=== PATIENT | female | born 1955 | race Caucasian/White ===

== ENCOUNTER → 2016-03-15 | Outpatient (CLI) | payer OTHER ==
[~2016-03-15] MED LIST: *GLUCOMETE; *MAMMOGRAM; *NEBULIZER; /ADVA50050; /ESOM40CA OR; /MOXI40TA OR; ACET500T2; ACET65TA; ADVAIR100 INHALATION; ADVAIR500 INHALATION; ALBUTEROL INHALATION; ALLO300T; ALLOPUR100 PO; ALLOPUR300 PO; AMO500 PO; AMOXIL875 PO; ASPI81TA85 PO; ASTELIN; ASTELIN NASAL; ASTLIN; AUG500 PO; AUG875 PO; AZELASTINE; BACTRIMDS PO; BENI20TA11; BENICAR; BENICAR PO; BPMONITOR; CETI10TA PO; CIPRO; CIPRO500 PO; CLAR5CHW; CLARITIN10 PO; CLEO300C; CO Q100C10 PO; COLA100C2; COLA100C2 OR; COLCHI0.6 PO; COMBIVENT PO; COMBVENT; CORTISSUSP OTIC; COZA25TA8 OR; COZAAR25 PO; COZAAR50 PO; DESONIDECR TOPICAL; DILA2TAB; DOCU10CA PO; DONETAB6 PO; DRISDOL50 PO; DUONSOL INHALATION; FERR325T OR; FLOVENT110 PO; FOLI1TAB; FOLIC1 PO; FURO40TA2; GLIM1TAB OR; GLUC1000; GLUCCOSEAC TOPICAL; GLUCOP1000 PO; GLUCOPXR5; GLUCOSE TEST; HEPARIN; INVANZ; KENALOG1 TOPICAL; LANCETDEV -; LANCMIS; LANCMIS SUBQ; LASI40TA; LASI40TA PO; LASIX40 PO; LOPI600T; LOPI600T OR; LOPID600 PO; LORATADINE; LOTRIMCREA TOPICALLY; METH2.5T; METH2.5T OR; MOTRIN6 PO; NAME10TA PO; NORMSALNS INHALATION; NYST100024; PERC5TAB8; POTASSIU10 PO; PRED5TAB OR; PREDNISO10 PO; PREDNISON PO; PREDNISON5 PO; PREDPOW10; PREDTAP PO; PRIL20CA; PRILOSEC20 PO; PROT1TAB2 PO; PROV90AE; PROVENTIL INHALATION; PROVENTILI PO; REGL5TAB2 PO; ROBITUSSIN PO; ROPINIROLE PO; SIMV40TA2 PO; SINGULAI10 PO; SODIUM CHLORIDE INJ; SUPETAB PO; TRIC145T19; TRICOR48 PO; TUMS500C OR; TYLE325T5 PO; TYLENOL500 PO; VENL75TA2 PO; VENTAER; VENTAER IN; VENTOLININ INHALATION; VICO5TAB OR; VICODIN PO; VITA-113 PO; VITA100T; VITA20008 PO; ZOVIRAXCR TOPICAL; [UNRECOGNIZED DRUG - CODE] PO; [UNRECOGNIZED DRUG - CODE] PO; [UNRECOGNIZED DRUG - OTHER]; [UNRECOGNIZED DRUG - OTHER]; [UNRECOGNIZED DRUG - OTHER] TOPICAL; [UNRECOGNIZED DRUG - OTHER] TOPICAL; [UNRECOGNIZED DRUG - OTHER] VAGINALLY; fish oil PO
--- NOTE | 2016-03-15 14:47 | REP ---
Chest two views HISTORY: Sleep apnea Comparison: 05/22/2015 The lungs are clear. The heart is upper limits of normal in size. The pulmonary vasculature is normal in appearance. The bony structure is intact. IMPRESSION: No acute disease. Signed by Darren Ragsdale MD 03/15/2016 02:37 P
== END ==
LOC: M SMT 13:35
PROVIDERS: ATTEND Nurse Practitioner Adult Health
DX: G47.33 Obstructive sleep apnea (adult) (pediatric) (principal)

== ENCOUNTER → 2016-05-16 | Outpatient (REF) | payer OTHER ==
[~2016-05-16] MED LIST changes: +ALBU17IN INH; +ASPI1TAB PO; +CALC1CAP31 PO; +COLA100C PO; +FOLI1TAB2 PO; +HYDR200T3 PO; +LOSA25TA8 PO; +PRED25TA PO; +PRED5TA PO; +VENL150C43 PO; +VITA200015 PO; +ZYLO300T4 PO
[2016-05-16 16:01] LABS: BASO % 0.3 % (0.0-1.0); EOS # 0.4 K/mm3 (0.0-0.50); EOS % 3.4 % (0.0-3.0); LARGE UNSTAINED CELL # 0.2 K/mm3 (0.0-0.4); LARGE UNSTAINED CELL % 1.2 % (0.0-4.0); LYMPH # 2.5 K/mm3 (1.5-4.5); LYMPH % 19.8 % (24.0-44.0); MEAN CORPUSCULAR HEMOGLOBIN 26.9 pg (27.0-33.0); MEAN CORPUSCULAR HGB CONC 30.4 g/dl (32.0-36.5); MEAN CORPUSCULAR VOLUME 88.4 fl (80.0-96.0); MONO # 0.5 K/mm3 (0.0-0.8); MONO % 4.4 % (0.0-5.0); NEUTROPHILS # 8.8 K/mm3 (1.8-7.7); NEUTROPHILS % 70.8 % (36.0-66.0); PLATELET COUNT, AUTOMATED 230 k/mm3 (150-450); RED CELL DISTRIBUTION WIDTH 14.4 % (11.5-14.5); WHITE BLOOD COUNT 12.4 K/mm3 (4.0-10.0)
[2016-05-16 16:11] LABS: ALBUMIN 3.7 GM/DL (3.2-5.2); ALBUMIN/GLOBULIN RATIO 0.97 (1.00-1.93); BILIRUBIN,TOTAL 0.3 MG/DL (0.2-1.0); CALCIUM LEVEL 8.8 MG/DL (8.5-10.1); CREATININE FOR GFR 1.56 MG/DL (0.55-1.02); GLOMERULAR FILTRATION RATE 36.2 (>51); POTASSIUM SERUM 4.4 MEQ/L (3.5-5.1); TOTAL PROTEIN 7.5 GM/DL (6.4-8.2)
== END ==
LOC: M SFHCPLAZ 14:01
PROVIDERS: ATTEND Nurse Practitioner Family
DX: R10.84 Generalized abdominal pain (principal); R63.4 Abnormal weight loss

== ENCOUNTER 2016-05-17 12:39 | Observation (INO) | payer OTHER, SELFPAY ==
[~2016-05-17] VITALS: Ht 160 cm; Wt 74.6 kg
[2016-05-17] MEDS: VENLAFAXINE **XR** 75MG CAPSULE PO SCH (09:00)
[2016-05-17] MEDS: predniSONE 2.5 MG TAB PO SCH (09:00)
[2016-05-17] MEDS: CETIRIZINE (ZyrTEC) 10 MG TAB PO SCH (09:00)
[2016-05-17] MEDS: ALLOPURINOL 300 MG TAB PO SCH (09:00)
[2016-05-17] MEDS: ASPIRIN 81 MG ENTERIC TAB PO SCH (09:00)
[2016-05-17] MEDS: VITAMIN D 1,000 INTERNATIONAL UNITS TABLET PO SCH (09:00)
[~2016-05-17 12:39] MED LIST changes: -ALBU17IN INH; -ASPI1TAB PO; -CALC1CAP31 PO; -COLA100C PO; -FOLI1TAB2 PO; +FUROSEMIDE 40 MG TAB PO SCH; -HYDR200T3 PO; -LOSA25TA8 PO; -PRED25TA PO; -PRED5TA PO; -VENL150C43 PO; -VITA200015 PO; -ZYLO300T4 PO
--- NOTE | 2016-05-17 15:56 | REP ---
Clinical: Acute abdominal pain with elevated amylase/lipase levels. Comparison: 12/25/2015. Findings: Mural thickening to the midsigmoid colon with multiple diverticula and very subtle pericolonic stranding (images 104 - 114) may reflect early acute sigmoid diverticulitis. The remainder of the small large bowel is unremarkable and without obstruction or further acute inflammatory process. Normal terminal ileum and appendix identified in the right lower quadrant. There is no evidence for free air or ascites and no drainable collection/abscess. Visualized liver, spleen, pancreas, bilateral adrenal glands and kidneys are normal. The patient is status post cholecystectomy. Splenic calcifications consistent with granulomatous disease. Pelvis demonstrates normal bladder and evidence for prior hysterectomy. No pelvic fluid/ascites. No intraperitoneal or retroperitoneal adenopathy. Moderate atherosclerotic changes of the aorta and vasculature without aneurysm. Skeletal structures demonstrate degenerative changes. Lung bases clear. Impression: 1. Cannot exclude a very subtle, early sigmoid diverticulitis. No associated bowel obstruction, perforation, or drainable collection/abscess. 2. No further acute intra-abdominal or pelvic pathology appreciated. Signed by Jaxon Barnett MD 05/17/2016 03:48 P
[2016-05-17] MEDS ORDERED: MORPHINE 4 MG/ML 1ML SYRINGE IV ONE (16:00)
[2016-05-17] MEDS ORDERED: ONDANSETRON 4MG/2ML VIAL (J2405) IV ONE (16:00)
[2016-05-17 16:01] LABS: BASO # 0.1 K/mm3 (0.0-0.2); BASO % 0.5 % (0.0-1.0); EOS # 0.6 K/mm3 (0.0-0.50); EOS % 4.2 % (0.0-3.0); LARGE UNSTAINED CELL # 0.2 K/mm3 (0.0-0.4); LARGE UNSTAINED CELL % 1.7 % (0.0-4.0); LYMPH # 4.1 K/mm3 (1.5-4.5); LYMPH % 26.9 % (24.0-44.0); MEAN CORPUSCULAR HEMOGLOBIN 27.4 pg (27.0-33.0); MEAN CORPUSCULAR HGB CONC 31.2 g/dl (32.0-36.5); MEAN CORPUSCULAR VOLUME 87.8 fl (80.0-96.0); MONO # 0.7 K/mm3 (0.0-0.8); MONO % 4.7 % (0.0-5.0); NEUTROPHILS % 62.1 % (36.0-66.0); PLATELET COUNT, AUTOMATED 264 k/mm3 (150-450); RED CELL DISTRIBUTION WIDTH 14.5 % (11.5-14.5); WHITE BLOOD COUNT 14.5 K/mm3 (4.0-10.0)
[2016-05-17 16:22] LABS: ALBUMIN 3.9 GM/DL (3.2-5.2); ALBUMIN/GLOBULIN RATIO 0.95 (1.00-1.93); BILIRUBIN,TOTAL 0.3 MG/DL (0.2-1.0); CALCIUM LEVEL 9.1 MG/DL (8.5-10.1); CREATININE FOR GFR 1.57 MG/DL (0.55-1.02); GLOMERULAR FILTRATION RATE 35.9 (>51); POTASSIUM SERUM 3.7 MEQ/L (3.5-5.1)
[2016-05-17] MEDS ORDERED: ERTAPENEM SODIUM 1 GM in NS MINI-BAG PLUS 50 ML IV ONE (17:30)
[2016-05-17] MEDS: HumaLOG INSULIN (NovoLOG) PER UNIT SC SCH (18:00)
[2016-05-17] MEDS ORDERED: ONDANSETRON 4MG/2ML VIAL (J2405) IV PRN (18:15)
[2016-05-17] MEDS ORDERED: MORPHINE 2 MG/ML 1ML SYRINGE IV PRN (18:15)
[2016-05-17] MEDS ORDERED: GLUCOSE 4 GM CHEW TABLET PO PRN (18:30)
[2016-05-17] MEDS ORDERED: DEXTROSE 50% 50 ML SYRINGE IV PRN (18:30)
[2016-05-17] MEDS ORDERED: ALBUTEROL SULFATE 2.5 MG/0.5 ML INH NEB SOLN NEB PRN (18:30)
[2016-05-17] MEDS ORDERED: GLUCAGON FOR INJ 1 MG VIAL (J1610) SC PRN (18:30)
[2016-05-17] MEDS ORDERED: CETI10TA PO (18:45)
[2016-05-17] MEDS ORDERED: ZYLO300T4 PO (18:45)
[2016-05-17] MEDS ORDERED: VITA200015 PO (18:45)
[2016-05-17] MEDS ORDERED: ALBU17IN INH (18:45)
[2016-05-17] MEDS ORDERED: TYLE325T5 PO (18:45)
[2016-05-17] MEDS ORDERED: ASPI1TAB PO (18:45)
[2016-05-17] MEDS ORDERED: FOLI1TAB2 PO (18:49)
[2016-05-17] MEDS ORDERED: COLA100C PO (18:49)
[2016-05-17] MEDS ORDERED: LOSA25TA8 PO (18:49)
[2016-05-17] MEDS ORDERED: CALC1CAP31 PO (18:49)
[2016-05-17] MEDS ORDERED: VENL150C43 PO (18:51)
[2016-05-17] MEDS ORDERED: PRED25TA PO (18:51)
[2016-05-17] MEDS ORDERED: PRED5TA PO (18:51)
[2016-05-17] MEDS ORDERED: HYDR200T3 PO (18:51)
[2016-05-17] MEDS ORDERED: predniSONE 5 MG TAB PO PRN (19:15)
[2016-05-17] MEDS ORDERED: DOCUSATE SODIUM 100 MG CAP PO PRN (19:15)
[2016-05-17] MEDS: NS 1,000 ML IV SCH (19:34)
--- NOTE | 2016-05-17 20:30 | HPE ---
DATE OF ADMISSION: 05/17/2016 PRIMARY CARE PROVIDER: Anahi Lucio/Dr. Nelson Goel HOSPITALIZATION COURSE: Patient is a 60-year-old female with a past medical history significant for type 2 diabetes, rheumatoid arthritis, lung nodule, chronic kidney disease (CKD), III, osteopenia, diverticulosis, hypertension, reflux disease, obstructive sleep apnea (MARLON) on continuous positive airway pressure (CPAP), chronic obstructive pulmonary disease (COPD), anxiety/depression, who was instructed to come to [facility] by her primary care provider's office. Patient has been having poor appetite and abdominal pain for the past 2 months. Patient has been following with primary care provider. On 05/16/2016, laboratory was done, which came back positive for elevated lipase, and the patient was instructed to come to [facility] for further evaluation. Per patient, patient has been having abdominal pain, mainly in the lower abdomen with tenderness to palpation without radiation. She could not relay any specific trigger to the abdominal pain. Denied any fevers or chills. Denies any diarrhea. Denied any blood in stool. Denies any new medication changes. Denies any significant alcohol use. When patient was in the [facility] Emergency Room, CT of the abdomen and pelvis was performed. Patient was found to have signs of early sigmoid diverticulosis. Patient was started on antibiotics, and the hospitalist team was called for admission. HOME MEDICATIONS: - Namenda 10 mg by mouth twice a day - Aricept 20 mg by mouth daily - aspirin 81 mg by mouth daily - Astelin spray one puff nasal twice a day as needed - vitamin B complex one tablet by mouth daily - losartan 25 mg by mouth daily - Effexor 150 mg by mouth daily - prednisone 2.5 mg by mouth daily - Tylenol 1000 mg by mouth every 8 hours as needed - Dulcolax 5 mg by mouth daily as needed - Colace 200 mg by mouth daily as needed - simvastatin 40 mg by mouth daily as needed - Lasix 20 mg by mouth daily - Zyrtec 10 mg one tablet by mouth daily - DuoNeb inhalation every 2 hours as needed - Folic acid 1 mg by mouth twice a day - allopurinol 300 mg by mouth daily - Protonix 40 mg by mouth daily ALLERGIES: 1. PENICILLIN, rash. 2. SULFA, rash. 3. FLAGYL; patient does not remember. 4. AUGMENTIN, rash. 5. FLEXERIL, stopped breathing. 6. CODEINE, tachycardia. 7. SERTRALINE, rash. PAST MEDICAL HISTORY: 1. Type 2 diabetes. 2. Hyperlipidemia. 3. Rheumatoid arthritis. Followed by [facility]. 4. Lung nodule (patient is not aware of the findings). 5. Chronic kidney disease (CKD), stage III. 6. Osteopenia. 7. Diverticulosis. 8. Hypertension. 9. Urge incontinence. 10. Reflux disease. 11. MARLON, on CPAP. 12. Chronic obstructive pulmonary disease (COPD). 13. Anxiety/depression. PAST SURGICAL HISTORY: 1. Tonsillectomy. 2. Cholecystectomy. 3. Hysterectomy. 4. Umbilical hernia repair. 5. Left flank lipoma excision in 2009. 6. Left parathyroid adenoma excision in 2010. 7. Right breast sebaceous cyst removal in July 2015. SOCIAL HISTORY: Patient smoked intermittently, total years approximately 30-40 years. When patient smoked, she smoked one pack daily. Last tobacco use was 4 months ago. Intermittent beer usage. Denies any recreational drug use. REVIEW OF SYSTEMS: GENERAL: No fever, no chills. HEENT: No vision change, no auditory changes. CARDIOVASCULAR: History of fluid around the heart but denies any cardiovascular condition. No chest pain. No palpitations. RESPIRATORY: History of COPD, history of MARLON. Denies any cough, sputum production, wheezes. ABDOMEN: Intermittent abdominal pain. Has been more frequent in the past 2 months, associated with poor appetite. Patient also complained of nausea. No diarrhea. No blood in stool. MUSCULOSKELETAL: History of rheumatoid arthritis. Denies any joint or muscle pain. NEUROLOGIC: Denied any numbness or tingling. OBJECTIVE: VITAL SIGNS: Temperature is 97.9, pulse 65, respirations 18, blood pressure is 133/69, pulse oximetry 99% in room air. GENERAL: No sign of acute distress. Anxious. Alert and oriented times three. HEENT: Normocephalic, atraumatic. Extraocular motor grossly intact. CARDIOVASCULAR: Positive S1, S2, regular rate. LUNGS: Clear to auscultation bilaterally. No wheezes or rhonchi. ABDOMEN: Tender to palpation, mainly on the left side of abdomen , upper and lower quadrants. No tenderness to palpation on the right side of abdomen. No rebound. No guarding. Bowel sounds present. Abdomen is soft. EXTREMITIES: No edema. No cyanosis. LABORATORY DATA: WBC 14.5, hemoglobin 12.8, hematocrit 41, platelet count is 264. Sodium is 144, potassium 3.7, chloride is 108, carbon dioxide 28, BUN 22, creatinine is 1.57, GFR 35.9, fasting glucose 74, calcium is 9.1. Total bilirubin 0.3, AST 14, ALT 20, alkaline phosphatase 173, total protein 8, albumin 3.9. Amylase is 84, lipase is 150. Lipase on 05/16/2016 is 526, and amylase is 158. TSH 0.67. Patient has a creatinine at baseline of 1.22 in April 2015. ASSESSMENT AND PLAN: 1. Abdominal pain, possibly due to diverticulitis. Patient could have pancreatitis previously, but it is resolved. Patient will be admitted to the medical/surgical floor under observation status. Patient did have elevated white count. Due to patient's allergy to multiple antibiotics, including penicillin, sulfa, Flagyl, we started patient on ertapenem. 2. Patient was continued nothing by mouth, support with intravenous (IV) fluid. Pain management started medication with Tylenol and IV morphine as needed. 3. Diverticulitis. 4. History of diverticulosis. 5. Type 2 diabetes. Patient on sliding scale every 2 hours. 6. History of rheumatoid arthritis. Continue on prednisone. 7. Chronic kidney disease (CKD), III. Continue to monitor patient's renal function tomorrow. 8. Hypertension. Continue home blood pressure medications. 9. Gastroesophageal reflux disease (GERD), on Protonix. 10. Obstructive sleep apnea (MARLON). Patient will bring her CPAP to the hospital. 11. Patient had chronic obstructive pulmonary disease (COPD). Currently does not have any exacerbation. 12. Anxiety/depression, on home medications. 13. Deep vein thrombosis (DVT) prophylaxis, on heparin.
[2016-05-17] MEDS: FOLIC ACID 1 MG TAB PO SCH (21:00)
[2016-05-17] MEDS: SIMVASTATIN 40 MG TAB PO SCH (21:00)
[2016-05-17 21:14] VITALS: BP 140/85
[2016-05-17] MEDS: PANTOPRAZOLE 40MG TAB (PROTONIX) PO SCH (22:07)
[2016-05-17] MEDS: HYDROXYCHLOROQUINE 200 MG TAB PO SCH (22:08)
[2016-05-17] MEDS: MEMANTINE 5MG TABLET (NAMENDA) PO SCH (22:08)
[2016-05-17] MEDS: LOSARTAN 25 MG TAB PO SCH (22:08)
[2016-05-17] MEDS: HEPARIN SOD (PORCINE) 5000 UNITS/ML VIAL SC SCH (22:08)
[2016-05-18 06:00] VITALS: BP 140/85
[2016-05-18] MEDS: HumaLOG INSULIN (NovoLOG) PER UNIT SC SCH ×5 (06:00→21:00)
[2016-05-18] MEDS: HEPARIN SOD (PORCINE) 5000 UNITS/ML VIAL SC SCH ×3 (06:27→21:39)
[2016-05-18] MEDS: NS 1,000 ML IV SCH (06:43)
[2016-05-18 06:59] LABS: MEAN CORPUSCULAR HEMOGLOBIN 26.7 pg (27.0-33.0); MEAN CORPUSCULAR HGB CONC 30.6 g/dl (32.0-36.5); MEAN CORPUSCULAR VOLUME 87.3 fl (80.0-96.0); RED CELL DISTRIBUTION WIDTH 14.4 % (11.5-14.5); WHITE BLOOD COUNT 7.4 K/mm3 (4.0-10.0)
[2016-05-18 07:15] LABS: CALCIUM LEVEL 8.5 MG/DL (8.5-10.1); CREATININE FOR GFR 1.32 MG/DL (0.55-1.02); GLOMERULAR FILTRATION RATE 43.9 (>51); POTASSIUM SERUM 4.4 MEQ/L (3.5-5.1)
[2016-05-18] MEDS: ALLOPURINOL 300 MG TAB PO SCH (10:15)
[2016-05-18] MEDS: ASPIRIN 81 MG ENTERIC TAB PO SCH (10:15)
[2016-05-18] MEDS: VENLAFAXINE **XR** 75MG CAPSULE PO SCH (10:15)
[2016-05-18] MEDS: predniSONE 2.5 MG TAB PO SCH (10:15)
[2016-05-18] MEDS: HYDROXYCHLOROQUINE 200 MG TAB PO SCH ×2 (10:15→21:40)
[2016-05-18] MEDS: MEMANTINE 5MG TABLET (NAMENDA) PO SCH ×2 (10:16→21:39)
[2016-05-18] MEDS: ACETAMINOPHEN TAB 650MG DOSE (2X325MG) PO PRN ×2 (10:16→14:52)
[2016-05-18 14:00] VITALS: BP 155/66
[2016-05-18] MEDS: ERTAPENEM SODIUM 1 GM in NS MINI-BAG PLUS 50 ML IV SCH (18:30)
[2016-05-18] MEDS: LOSARTAN 25 MG TAB PO SCH (21:40)
[2016-05-18] MEDS: PANTOPRAZOLE 40MG TAB (PROTONIX) PO SCH (21:40)
[2016-05-18 22:00] VITALS: BP 134/62
--- NOTE | 2016-05-19 00:42 | IPNPDOC ---
Subjective Date Seen The patient was seen on 05/18/16. Subjective Chief Complaint/HPI The patient is a 60-year-old female admitted with a reason for visit of Acute Diverticulitis. Events since last encounter States she is feeling better. Abdominal discomfort improving. Constitutional: Reports: Fatigue, Malaise, Denies: Chills, Fever Skin: Denies: Rash Pulmonary: Denies: Cough, Dyspnea Cardiovascular: Denies: Chest Pain Gastrointestinal: Reports: Abdominal Pain, Diarrhea, Denies: Vomiting Objective Physical Examination General Exam: Positive: Alert Assessment /Plan Problems (1) Acute diverticulitis Status: Acute Problem Text: Irtapenem secondary to multiple medication allergies. Reports improvement. (2) Diabetes mellitus type 2 in nonobese Status: Chronic Problem Text: on sliding scale insulin (3) Rheumatoid arthritis Status: Acute (4) Chronic kidney disease Status: Chronic Problem Text: 05/18: outpatient creatinine 1.5 just prior to admission, will monitor (5) COPD (chronic obstructive pulmonary disease) Status: Chronic Problem Text: Duonebs prn (6) MARLON (obstructive sleep apnea) Status: Acute (7) Hypertension Status: Acute VS, I&O, 24H, [facility] Vital Signs/I&O Vital Signs Date Time Temp Pulse Resp B/P Pulse Ox O2 Delivery O2 Flow Rate FiO2 05/18/16 22:00 96.8 56 18 134/62 99 05/18/16 14:00 Room Air I&O- Last 24 Hours up to 6 AM 05/19/16 06:00 Intake Total 1810 ml Output Total 300 ml Balance 1510 ml Laboratory Data 24H LABS Laboratory Tests 2 05/18/16 03:56: Bedside Glucose (Misc Panel) 78 05/18/16 06:02: Bedside Glucose (Misc Panel) 105 05/18/16 06:40: Anion Gap 6L, C-Reactive Protein, Quantitative 2.95H, Blood Urea Nitrogen 17, Creatinine 1.32H, Sodium Level 146H, Potassium Level 4.4, Chloride Level 114H, Carbon Dioxide Level 26, Calcium Level 8.5, Glomerular Filtration Rate 43.9L 05/18/16 12:02: Bedside Glucose (Misc Panel) 102 05/18/16 17:10: Bedside Glucose (Misc Panel) 95 05/18/16 21:32: Bedside Glucose (Misc Panel) 77 CBC/BMP Laboratory Tests 05/18/16 06:40 Calcium Level 8.5, Red Blood Count 4.10, Mean Corpuscular Volume 87.3, Mean Corpuscular Hemoglobin 26.7 L, Mean Corpuscular Hemoglobin Concent 30.6 L, Red Cell Distribution Width 14.4 BRITTANY DODSON DO May 19, 2016 00:42
[2016-05-19] MEDS ORDERED: IPRATROPIUM 0.5MG/ALBUTEROL 2.5MG INH SOL UD 3ML (DUONEB)(J7620) NEB PRN (00:45)
[2016-05-19] MEDS: HEPARIN SOD (PORCINE) 5000 UNITS/ML VIAL SC SCH ×3 (05:13→21:59)
[2016-05-19] MEDS: ACETAMINOPHEN TAB 650MG DOSE (2X325MG) PO PRN ×2 (05:33→12:23)
[2016-05-19 06:00] VITALS: BP 180/78
[2016-05-19 06:43] LABS: MEAN CORPUSCULAR HEMOGLOBIN 27.2 pg (27.0-33.0); MEAN CORPUSCULAR HGB CONC 31.4 g/dl (32.0-36.5); MEAN CORPUSCULAR VOLUME 86.6 fl (80.0-96.0); RED CELL DISTRIBUTION WIDTH 14.4 % (11.5-14.5); WHITE BLOOD COUNT 9.4 K/mm3 (4.0-10.0)
[2016-05-19 07:02] LABS: CALCIUM LEVEL 9.5 MG/DL (8.5-10.1); CREATININE FOR GFR 1.25 MG/DL (0.55-1.02); GLOMERULAR FILTRATION RATE 46.7 (>51); POTASSIUM SERUM 4.1 MEQ/L (3.5-5.1)
[2016-05-19] MEDS: HumaLOG INSULIN (NovoLOG) PER UNIT SC SCH ×4 (07:30→20:44)
[2016-05-19] MEDS: ALLOPURINOL 300 MG TAB PO SCH (09:34)
[2016-05-19] MEDS: ASPIRIN 81 MG ENTERIC TAB PO SCH (09:34)
[2016-05-19] MEDS: predniSONE 2.5 MG TAB PO SCH (09:35)
[2016-05-19] MEDS: MEMANTINE 5MG TABLET (NAMENDA) PO SCH ×2 (09:35→21:59)
[2016-05-19] MEDS: HYDROXYCHLOROQUINE 200 MG TAB PO SCH ×2 (09:35→21:59)
[2016-05-19] MEDS: VENLAFAXINE **XR** 75MG CAPSULE PO SCH (09:35)
[2016-05-19 09:37] VITALS: BP 159/62
--- NOTE | 2016-05-19 12:55 | IPNPDOC ---
Subjective Date Seen The patient was seen on 05/19/16. Subjective Chief Complaint/HPI The patient is a 60-year-old female admitted with a reason for visit of Acute Diverticulitis. Events since last encounter She developed increased abdominal cramping this morning. Moderate amount of formed stool this am. No diarrhea today. No n/v. Constitutional: Denies: Chills, Fever Pulmonary: Denies: Cough, Dyspnea Cardiovascular: Denies: Chest Pain, Orthopnea, Palpitations Gastrointestinal: Reports: Abdominal Pain (abdominal cramping today), Denies: Constipation, Diarrhea, Nausea, Vomiting Objective Physical Examination General Exam: Positive: Alert, Moderate Distress (holding abdomen with obvious discomfort) Chest Exam: Positive: Clear to auscultation, Normal air movement Heart Exam: Positive: Rate Normal, Negative: Murmurs Abdomen Exam: Positive: Normal bowel sounds, Soft, Tenderness (diffuse tenderness lower abd without guard ) Extremity Exam: Negative: Edema Assessment /Plan Problems (1) Acute diverticulitis Status: Acute Problem Text: 05/19 - recurrence of abd cramping this am. No diarrhea, but I would get GI panel anyway She is unwilling to take the Morphine - "makes her throat feel funny" Give percocet prn Irtapenem secondary to multiple medication allergies. (2) Diabetes mellitus type 2 in nonobese Status: Chronic Problem Text: on sliding scale insulin (3) Rheumatoid arthritis Status: Acute Problem Text: On chronic prednisone. (4) Chronic kidney disease Status: Chronic Problem Text: 05/19 - stable - diuretics on hold 05/18: outpatient creatinine 1.5 just prior to admission, will monitor (5) COPD (chronic obstructive pulmonary disease) Status: Chronic Problem Text: Duonebs prn (6) MARLON (obstructive sleep apnea) Status: Acute (7) Hypertension Status: Chronic Problem Text: Bp was high this am but better now on ARB Plan/VTE VTE Prophylaxis Ordered?: Yes (SQ heparin) VS, I&O, 24H, Fishbone Vital Signs/I&O Vital Signs Date Time Temp Pulse Resp B/P Pulse Ox O2 Delivery O2 Flow Rate FiO2 05/19/16 09:37 159/62 05/19/16 06:00 98.0 56 18 99 05/18/16 14:00 Room Air I&O- Last 24 Hours up to 6 AM 05/19/16 06:00 Intake Total 2290 ml Output Total 500 ml Balance 1790 ml Laboratory Data 24H LABS Laboratory Tests 2 05/18/16 17:10: Bedside Glucose (Misc Panel) 95 05/18/16 21:32: Bedside Glucose (Misc Panel) 77 05/19/16 01:55: Bedside Glucose (Misc Panel) 92 05/19/16 05:13: Bedside Glucose (Misc Panel) 95 05/19/16 06:02: Anion Gap 6L, Blood Urea Nitrogen 16, Creatinine 1.25H, Sodium Level 144, Potassium Level 4.1, Chloride Level 112H, Carbon Dioxide Level 26, Calcium Level 9.5, Glomerular Filtration Rate 46.7L 05/19/16 11:29: Bedside Glucose (Misc Panel) 117H CBC/BMP Laboratory Tests 05/19/16 06:02 Calcium Level 9.5, Red Blood Count 4.33, Mean Corpuscular Volume 86.6, Mean Corpuscular Hemoglobin 27.2, Mean Corpuscular Hemoglobin Concent 31.4 L, Red Cell Distribution Width 14.4 CORNELIUS JEFFREY PA-C May 19, 2016 12:55
[2016-05-19 14:00] VITALS: BP 152/74
[2016-05-19] MEDS: ERTAPENEM SODIUM 1 GM in NS MINI-BAG PLUS 50 ML IV SCH (18:47)
[2016-05-19] MEDS ORDERED: traMADol 50 MG TAB PO PRN (19:30)
[2016-05-19 21:59] VITALS: BP 141/63
[2016-05-19] MEDS: PANTOPRAZOLE 40MG TAB (PROTONIX) PO SCH (21:59)
[2016-05-19] MEDS: SIMVASTATIN 40 MG TAB PO SCH (21:59)
[2016-05-19] MEDS: FOLIC ACID 1 MG TAB PO SCH (21:59)
[2016-05-19] MEDS: LOSARTAN 25 MG TAB PO SCH (21:59)
[2016-05-19 22:00] VITALS: BP 141/63
[2016-05-20] MEDS: HEPARIN SOD (PORCINE) 5000 UNITS/ML VIAL SC SCH ×4 (05:58→14:18)
[2016-05-20 06:00] VITALS: BP 160/72
[2016-05-20 06:18] LABS: MEAN CORPUSCULAR HEMOGLOBIN 27.8 pg (27.0-33.0); MEAN CORPUSCULAR HGB CONC 31.7 g/dl (32.0-36.5); MEAN CORPUSCULAR VOLUME 87.5 fl (80.0-96.0); RED CELL DISTRIBUTION WIDTH 14.4 % (11.5-14.5); WHITE BLOOD COUNT 8.8 K/mm3 (4.0-10.0)
[2016-05-20 06:30] LABS: CREATININE FOR GFR 1.14 MG/DL (0.55-1.02); GLOMERULAR FILTRATION RATE 51.9 (>51); POTASSIUM SERUM 4.4 MEQ/L (3.5-5.1)
[2016-05-20] MEDS: HumaLOG INSULIN (NovoLOG) PER UNIT SC SCH ×2 (07:30→12:00)
[2016-05-20] MEDS: MEMANTINE 5MG TABLET (NAMENDA) PO SCH (09:44)
[2016-05-20] MEDS: FOLIC ACID 1 MG TAB PO SCH (09:44)
[2016-05-20] MEDS: HYDROXYCHLOROQUINE 200 MG TAB PO SCH (09:44)
[2016-05-20] MEDS: VENLAFAXINE **XR** 75MG CAPSULE PO SCH (09:44)
[2016-05-20] MEDS: ALLOPURINOL 300 MG TAB PO SCH (09:44)
[2016-05-20] MEDS: VITAMIN D 1,000 INTERNATIONAL UNITS TABLET PO SCH (09:44)
[2016-05-20] MEDS: CETIRIZINE (ZyrTEC) 10 MG TAB PO SCH (09:44)
[2016-05-20] MEDS: ASPIRIN 81 MG ENTERIC TAB PO SCH (09:44)
[2016-05-20] MEDS: predniSONE 2.5 MG TAB PO SCH (10:23)
[2016-05-20 14:00] VITALS: BP 151/70
--- NOTE | 2016-05-20 16:35 | IPN ---
DATE: 05/20/2016 Charlotte is here for diverticulitis. She is hoping to go home. She did have one episode of profuse diarrhea, and I want to make sure she does not Clostridium (C) difficile before making a decision about discharge. She is on chronic steroid therapy and broad-spectrum antibiotic therapy. PHYSICAL EXAMINATION: Afebrile. Vital signs stable. LUNGS: Clear. HEART: Regular rate and rhythm. No murmur. ABDOMEN: Soft, nondistended. No masses. No peripheral edema. LABORATORY DATA: CBC, BMP look unremarkable. Creatinine is down to 1.1. IMPRESSION: 1. Diverticulitis. She is allergic to FLAGYL. Previously had been treated as an outpatient with Cipro and clindamycin. Need to make sure she does not have Clostridium (C) difficile before sending her anywhere on clindamycin. 2. Type 2 diabetes. I am stopping the sliding scale and fingersticks, as her blood sugars have consistently been around 100 with no requirement for coverage. 3. Rheumatoid arthritis, on chronic steroid therapy. 4. Diarrhea episode. Need to rule out C. difficile, particularly being on steroids and broad-spectrum antibiotic. If her gastrointestinal (GI) panel is negative, I will discharge her later this evening. 5. Chronic kidney disease, acute renal failure. Renal function is back to baseline. 6. Hypertension. Her blood pressure is under good control.
[2016-05-20] MEDS ORDERED: CLINDAMYCIN 150 MG CAP PO SCH (18:00)
[2016-05-20] MEDS ORDERED: CIPROFLOXACIN 500 MG TAB PO SCH (18:00)
[2016-05-20] MEDS ORDERED: CLEO150C PO (18:17)
[2016-05-20] MEDS ORDERED: CIPR500T89 PO (18:17)
--- NOTE | 2016-05-20 20:43 | DSES ---
DATE OF ADMISSION: 05/17/2016 DATE OF DISCHARGE: 05/20/2016 PRINCIPAL DIAGNOSIS: Acute diverticulitis. SECONDARY DIAGNOSES: 1. Type 2 diabetes. 2. Chronic kidney disease, stage III. 3. Acute renal failure. 4. Rheumatoid arthritis on chronic steroid therapy. 5. Obstructive sleep apnea. 6. Hypertension. HISTORY: Charlotte Celis was admitted with diverticulitis. For details, see history and physical from admission. HOSPITAL COURSE: The patient was admitted to a medical bed. She has a history of multiple drug allergies. She was treated with ertapenem. Tolerated this well. She had resolution of pain. On day of discharge was quite eager to go home. She had one diarrheal stool. I wanted her to wait and have another stool so we could send it to rule out Clostridium (C) difficile. She did have a stool this afternoon, but it was formed, and therefore not consistent with C. difficile colitis, so I am letting her go home. SIGNIFICANT LABORATORIES: White count today is 8.8, hemoglobin 10.9, platelets 190. Creatinine at admission was 1.57. It is down to 1.1 on discharge. DISPOSITION: She is discharged home in improved and stable condition. MEDICATIONS ON DISCHARGE: - Cipro 500 mg twice a day for 5 days - clindamycin 300 mg every 6 hours for 5 days (that is the regimen that she responded to in the past) She will otherwise continue her home medicines, which are: - allopurinol 300 mg daily - albuterol two puffs four times a day as needed - calcitriol 0.25 mcg three days a week, Monday, Monday, Monday - cetirizine 10 mg daily for allergies - vitamin D 2000 units daily - Colace 100 mg twice a day - Aricept 10 mg twice a day - folic acid 1 mg daily - Lasix 40 mg daily - Plaquenil 200 mg twice a day - losartan 25 mg at bedtime - Namenda 10 mg twice a day - Protonix 40 mg at bedtime - prednisone 2.5 mg daily - simvastatin 40 mg daily - venlafaxine 150 mg daily DIET: As tolerated. ACTIVITY: As tolerated with consistent-carbohydrate diet. Followup with her primary physician in a week.
== END 2016-05-20 18:47 | disposition home or self-care (01) ==
LOC: M ED 17:09 → M ED INP 18:13 → INTOOBSV 18:13 → M MSPAV 21:14
PROVIDERS: ADMIT Internal Medicine; ATTEND Family Medicine
DX: K57.92 Diverticulitis of intestine, part unspecified, without perforation or abscess without bleeding (principal); E11.9 Type 2 diabetes mellitus without complications; N18.3 Chronic kidney disease, stage 3 (moderate); N17.9 Acute kidney failure, unspecified; E78.4 Other hyperlipidemia; M06.9 Rheumatoid arthritis, unspecified; Z79.52 Long term (current) use of systemic steroids; G47.33 Obstructive sleep apnea (adult) (pediatric); I10 Essential (primary) hypertension; Z88.0 Allergy status to penicillin; Z88.2 Allergy status to sulfonamides; Z88.8 Allergy status to other drugs, medicaments and biological substances; Z87.891 Personal history of nicotine dependence; R91.1 Solitary pulmonary nodule; K21.9 Gastro-esophageal reflux disease without esophagitis; J44.9 Chronic obstructive pulmonary disease, unspecified; F41.9 Anxiety disorder, unspecified; F32.9 Major depressive disorder, single episode, unspecified; Z79.899 Other long term (current) drug therapy
CPT/HCPCS: 36415; 74176; 80048; 80053; 82150; 83690; 85025; 85027; 86140; 87507; 96372; 96376; 99284; J1335; J2405

== ENCOUNTER 2016-06-24 23:16 | Emergency (ER) | payer OTHER ==
[~2016-06-24] VITALS: Ht 160 cm; Wt 72.6 kg
[~2016-06-24 23:16] MED LIST changes: +ALBU17IN INH; +ASPI1TAB PO; +CALC1CAP31 PO; +CIPR500T89 PO; +CLEO150C PO; +COLA100C3 PO; +FOLI1TAB2 PO; -FUROSEMIDE 40 MG TAB PO SCH; +HYDR200T3 PO; +LOSA25TA8 PO; +PRED25TA PO; +PRED5TA PO; +VENL150C43 PO; +VITA200015 PO; +ZYLO300T4 PO
[2016-06-24] MEDS ORDERED: ONDANSETRON 4MG/2ML VIAL (J2405) IV ONE (23:45)
[2016-06-25] LABS: BASO # 0.1 K/mm3 (0.0-0.2); BASO % 0.7 % (0.0-1.0); EOS # 0.8 K/mm3 (0.0-0.50); EOS % 5.6 % (0.0-3.0); LARGE UNSTAINED CELL # 0.2 K/mm3 (0.0-0.4); LARGE UNSTAINED CELL % 1.2 % (0.0-4.0); LYMPH % 27.3 % (24.0-44.0); MEAN CORPUSCULAR HEMOGLOBIN 26.8 pg (27.0-33.0); MEAN CORPUSCULAR HGB CONC 31.5 g/dl (32.0-36.5); MONO # 0.6 K/mm3 (0.0-0.8); MONO % 4.4 % (0.0-5.0); NEUTROPHILS # 8.4 K/mm3 (1.8-7.7); NEUTROPHILS % 60.8 % (36.0-66.0); PLATELET COUNT, AUTOMATED 260 k/mm3 (150-450); RED CELL DISTRIBUTION WIDTH 15.1 % (11.5-14.5); WHITE BLOOD COUNT 13.8 K/mm3 (4.0-10.0)
[2016-06-25] MEDS ORDERED: MORPHINE 2 MG/ML 1ML SYRINGE IV PRN
[2016-06-25] MEDS ORDERED: LORazepam 2 MG/ML VIAL (J2060) IV STA (00:03)
[2016-06-25] MEDS ORDERED: ASPIRIN 325 MG TAB PO ONE (00:15)
[2016-06-25] MEDS ORDERED: ASPIRIN 81 MG CHEW TABLET As Ordered ONE (00:26)
[2016-06-25 00:31] LABS: ALBUMIN 3.5 GM/DL (3.2-5.2); ALBUMIN/GLOBULIN RATIO 0.92 (1.00-1.93); ALKALINE PHOSPHATASE 182 U/L (45-117); ALT/SGPT 24 U/L (12-78); ANION GAP 10 MEQ/L (8-16); AST/SGOT 28 U/L (15-37); BILIRUBIN,DIRECT < 0.1 MG/DL (0.0-0.2); BILIRUBIN,TOTAL 0.2 MG/DL (0.2-1.0); BLOOD UREA NITROGEN 31 MG/DL (7-18); CARBON DIOXIDE LEVEL 27 MEQ/L (21-32); CHLORIDE LEVEL 106 MEQ/L (98-107); CREATININE FOR GFR 1.72 MG/DL (0.55-1.02); FREE T4 1.06 NG/DL (0.76-1.46); GLOMERULAR FILTRATION RATE 32.3 (>51); GLUCOSE, FASTING 172 MG/DL (70-105); POTASSIUM SERUM 4.1 MEQ/L (3.5-5.1); SODIUM LEVEL 143 MEQ/L (136-145); TOTAL PROTEIN 7.3 GM/DL (6.4-8.2)
[2016-06-25 00:49] LABS: INR 0.94
[2016-06-25 01:13] VITALS: BP 131/73
[2016-06-25] MEDS ORDERED: ASPIRIN 81 MG CHEW TABLET PO ONE (01:15)
--- NOTE | 2016-06-25 15:06 | REP ---
Chest one-view HISTORY: Chest pain Comparison: 03/15/2016 The lungs are clear. The heart is upper limits of normal in size. The pulmonary vasculature is normal in appearance. Impression: No acute disease. Signed by Darren Ragsdale MD 06/25/2016 07:44 A
--- NOTE | 2016-06-27 05:45 | ECGEPIP ---
Stationary ECG Study [facility] - ED Test Date: 2016-06-24 Pat Name: JOSE ROBERTO DONIS Department: Room: - Gender: F [place] Supervisor: osmar : 1955 Requested By: BRIAN GUERRERO Order Number: [id number] Reading MD: Abel Clarke Measurements Intervals [place] Rate: 78 P: 38 DC: 138 QRS: 6 QRSD: 97 T: 34 QT: 420 QTc: 479 Interpretive Statements SINUS RHYTHM NSTTW ABNORMALITY SIMILAR TO 10/17/14 Electronically Signed On 06-27-2016 5:44:55 EDT by Abel Clarke
== END 2016-06-25 01:27 | disposition home or self-care (01) ==
LOC: M ED 23:16
DX: F41.8 Other specified anxiety disorders (principal); E11.22 Type 2 diabetes mellitus with diabetic chronic kidney disease; I12.9 Hypertensive chronic kidney disease with stage 1 through stage 4 chronic kidney disease, or unspecified chronic kidney disease; J44.9 Chronic obstructive pulmonary disease, unspecified; N18.3 Chronic kidney disease, stage 3 (moderate); E78.5 Hyperlipidemia, unspecified; F33.9 Major depressive disorder, recurrent, unspecified; G47.30 Sleep apnea, unspecified; K21.9 Gastro-esophageal reflux disease without esophagitis; M85.9 Disorder of bone density and structure, unspecified; M06.9 Rheumatoid arthritis, unspecified; N39.41 Urge incontinence; Z87.19 Personal history of other diseases of the digestive system; Z79.82 Long term (current) use of aspirin; Z79.899 Other long term (current) drug therapy; Z79.52 Long term (current) use of systemic steroids; Z88.0 Allergy status to penicillin; Z88.2 Allergy status to sulfonamides; Z88.5 Allergy status to narcotic agent; Z88.8 Allergy status to other drugs, medicaments and biological substances; Z87.891 Personal history of nicotine dependence
CPT/HCPCS: 71010; 80048; 80076; 82550; 82553; 84439; 84443; 85025; 85610; 85730; 93005; 93041; 94760; 96374; 96375; 99284; J2060; J2405

== ENCOUNTER → 2016-07-20 | Outpatient (REF) | payer OTHER ==
[2016-07-20 20:11] LABS: CALCIUM LEVEL 9.5 MG/DL (8.5-10.1); CREATININE FOR GFR 1.27 MG/DL (0.55-1.02); FREE T4 1.14 NG/DL (0.76-1.46); GLOMERULAR FILTRATION RATE 45.9 (>51); POTASSIUM SERUM 4.1 MEQ/L (3.5-5.1)
== END ==
LOC: M SFHCPLAZ 15:02
PROVIDERS: ATTEND Nurse Practitioner Family
DX: F41.9 Anxiety disorder, unspecified (principal); N18.3 Chronic kidney disease, stage 3 (moderate)

== ENCOUNTER → 2016-08-18 | Outpatient (REF) | payer OTHER ==
[2016-08-18 19:09] LABS: CALCIUM LEVEL 9.1 MG/DL (8.5-10.1); CREATININE FOR GFR 1.46 MG/DL (0.55-1.02); POTASSIUM SERUM 3.8 MEQ/L (3.5-5.1)
== END ==
LOC: M SFHCPLAZ 15:13
PROVIDERS: ATTEND Nurse Practitioner Family
DX: N18.3 Chronic kidney disease, stage 3 (moderate) (principal)

== ENCOUNTER → 2016-10-12 | Outpatient (REF) | payer OTHER ==
[~2016-10-12] MED LIST changes: +AMLO25TA PO; +CIPR-249 PO; -CIPR500T89 PO; -COLA100C3 PO; +COLA100C5 PO; +FIRS1SOL3 PO; -FOLI1TAB2 PO; +FOLI1TAB4 PO; +HYDR-3363 PO; +IPRASOL4 INH; -NYST100024; +NYST1POW9; +TRAZ-136 PO
[2016-10-12 15:58] LABS: BASO % 0.5 % (0.0-1.0); EOS # 0.3 K/mm3 (0.0-0.50); EOS % 2.4 % (0.0-3.0); LARGE UNSTAINED CELL # 0.1 K/mm3 (0.0-0.4); LARGE UNSTAINED CELL % 1.2 % (0.0-4.0); LYMPH % 16.9 % (24.0-44.0); MEAN CORPUSCULAR HEMOGLOBIN 28.1 pg (27.0-33.0); MEAN CORPUSCULAR HGB CONC 32.2 g/dl (32.0-36.5); MEAN CORPUSCULAR VOLUME 87.3 fl (80.0-96.0); MONO # 0.5 K/mm3 (0.0-0.8); MONO % 4.5 % (0.0-5.0); NEUTROPHILS # 8.8 K/mm3 (1.8-7.7); NEUTROPHILS % 74.6 % (36.0-66.0); PLATELET COUNT, AUTOMATED 239 k/mm3 (150-450); RED CELL DISTRIBUTION WIDTH 14.7 % (11.5-14.5); WHITE BLOOD COUNT 11.8 K/mm3 (4.0-10.0)
== END ==
LOC: M SFHCPLAZ 13:25
PROVIDERS: ATTEND Nurse Practitioner Family
DX: N18.3 Chronic kidney disease, stage 3 (moderate) (principal)

== ENCOUNTER → 2016-11-03 | Outpatient (CLI) | payer OTHER ==
--- NOTE | 2016-11-03 12:51 | REP ---
Clinical: Pain. Technique: AP, lateral, bilateral oblique and sunrise views of the right knee. Findings: Early moderate tricompartmental osteoarthritic degenerative changes. Findings include cortical irregularity and spurring as well as increased sclerosis to the tibial plateau and subtle fraying along the anterior margin of the patella. No acute fracture dislocation. No obvious effusion. Impression: Moderate tricompartmental degenerative changes. Signed by Jaxon Barnett MD 11/03/2016 12:43 P
== END ==
LOC: M WUC 11:55
PROVIDERS: ATTEND Physician Assistant
DX: M25.561 Pain in right knee (principal)

== ENCOUNTER → 2016-11-09 | Outpatient (CLI) | payer OTHER ==
[~2016-11-09] VITALS: Ht 160 cm; Wt 74.4 kg
[~2016-11-09] MED LIST changes: +NS 1,000 ML IV ONE
== END ==
LOC: M OPP 12:42
PROVIDERS: ATTEND Internal Medicine Gastroenterology
DX: R63.4 Abnormal weight loss (principal); Z53.9 Procedure and treatment not carried out, unspecified reason

== ENCOUNTER → 2016-11-11 | Outpatient (REF) | payer OTHER ==
[~2016-11-11] MED LIST changes: -NS 1,000 ML IV ONE
== END ==
LOC: M LAB REF 09:38
PROVIDERS: ATTEND Physician Assistant
DX: J02.9 Acute pharyngitis, unspecified (principal)

== ENCOUNTER 2016-11-15 15:07 | Inpatient (IN) | payer OTHER ==
[~2016-11-15] VITALS: Ht 160 cm; Wt 75.4 kg
[~2016-11-15 15:07] MED LIST changes: -AMLO25TA PO; -FIRS1SOL3 PO; -IPRASOL4 INH
[2016-11-15] MEDS ORDERED: CIPR-249 PO (15:33)
[2016-11-15] MEDS ORDERED: METOCLOPRAMIDE INJ 10MG/2ML VIAL (J2765) IV ONE (16:15)
[2016-11-15 16:31] LABS: BASO % 0.5 % (0.0-1.0); EOS # 0.6 K/mm3 (0.0-0.50); EOS % 4.9 % (0.0-3.0); LARGE UNSTAINED CELL # 0.1 K/mm3 (0.0-0.4); LARGE UNSTAINED CELL % 1.1 % (0.0-4.0); LYMPH # 2.2 K/mm3 (1.5-4.5); LYMPH % 17.8 % (24.0-44.0); MEAN CORPUSCULAR HEMOGLOBIN 27.2 pg (27.0-33.0); MEAN CORPUSCULAR HGB CONC 31.9 g/dl (32.0-36.5); MEAN CORPUSCULAR VOLUME 85.2 fl (80.0-96.0); MONO # 0.5 K/mm3 (0.0-0.8); MONO % 4.1 % (0.0-5.0); NEUTROPHILS # 8.2 K/mm3 (1.8-7.7); NEUTROPHILS % 71.7 % (36.0-66.0); PLATELET COUNT, AUTOMATED 239 k/mm3 (150-450); RED CELL DISTRIBUTION WIDTH 14.4 % (11.5-14.5); WHITE BLOOD COUNT 11.5 K/mm3 (4.0-10.0)
[2016-11-15 16:57] LABS: ALBUMIN 3.1 GM/DL (3.2-5.2); ALBUMIN/GLOBULIN RATIO 0.72 (1.00-1.93); ALKALINE PHOSPHATASE 193 U/L (45-117); ALT/SGPT 27 U/L (12-78); AMYLASE 124 U/L (25-115); ANION GAP 11 MEQ/L (8-16); AST/SGOT 24 U/L (15-37); BILIRUBIN,TOTAL 0.2 MG/DL (0.2-1.0); BLOOD UREA NITROGEN 26 MG/DL (7-18); CALCIUM LEVEL 8.6 MG/DL (8.5-10.1); CARBON DIOXIDE LEVEL 24 MEQ/L (21-32); CHLORIDE LEVEL 110 MEQ/L (98-107); CREATININE FOR GFR 1.62 MG/DL (0.55-1.02); GLOMERULAR FILTRATION RATE 34.6 (>51); GLUCOSE, FASTING 112 MG/DL (70-105); POTASSIUM SERUM 3.6 MEQ/L (3.5-5.1); SODIUM LEVEL 145 MEQ/L (136-145); TOTAL PROTEIN 7.4 GM/DL (6.4-8.2)
[2016-11-15] MEDS: NS 1,000 ML IV SCH ×2 (17:29→22:02)
[2016-11-15] MEDS ORDERED: MORPHINE 2 MG/ML 1ML SYRINGE IV PRN (17:30)
[2016-11-15] MEDS ORDERED: BISACODYL 5 MG TAB PO PRN (17:30)
[2016-11-15] MEDS ORDERED: ONDANSETRON 4MG/2ML VIAL (J2405) IV PRN (17:30)
[2016-11-15] MEDS ORDERED: HEPARIN SOD (PORCINE) 5000 UNITS/ML VIAL SQ SCH (17:45)
[2016-11-15] MEDS ORDERED: IPRASOL4 INH (17:47)
[2016-11-15] MEDS ORDERED: traZODone 100 MG TAB PO PRN (18:30)
[2016-11-15] MEDS ORDERED: IPRATROPIUM 0.5MG/ALBUTEROL 2.5MG INH SOL UD 3ML (DUONEB)(J7620) INH PRN (18:30)
[2016-11-15] MEDS ORDERED: predniSONE 5 MG TAB PO PRN (18:30)
[2016-11-15] MEDS ORDERED: ACETAMINOPHEN 325 MG TAB PO PRN (18:30)
[2016-11-15 20:29] VITALS: BP 165/77
[2016-11-15] MEDS: FOLIC ACID 1 MG TAB PO SCH (21:00)
[2016-11-15] MEDS: HEPARIN SOD (PORCINE) 5000 UNITS/ML VIAL SC SCH (22:00)
[2016-11-15] MEDS: PANTOPRAZOLE 40MG TAB (PROTONIX) PO SCH (22:01)
[2016-11-15] MEDS: LOSARTAN 25 MG TAB PO SCH (22:01)
[2016-11-15] MEDS: hydrOXYzine 25 MG TAB PO SCH (22:01)
[2016-11-15] MEDS: HYDROXYCHLOROQUINE 200 MG TAB PO SCH (22:23)
[2016-11-15] MEDS: MEMANTINE 5MG TABLET (NAMENDA) PO SCH (22:23)
[2016-11-15] MEDS ORDERED: GLUCOSE 4 GM CHEW TABLET PO PRN (22:45)
[2016-11-15] MEDS ORDERED: DEXTROSE 50% 50 ML SYRINGE IV PRN (22:45)
[2016-11-15] MEDS ORDERED: GLUCAGON FOR INJ 1 MG VIAL (J1610) SC PRN (22:45)
--- NOTE | 2016-11-16 00:32 | REP ---
CT of the abdomen pelvis without IV or bowel contrast: There are no renal or ureteral calculi. There is no hydronephrosis or perinephric stranding. There is no abdominal aortic aneurysm. The aorta is otherwise unremarkable. There is no bowel distension or obstruction. There are diverticula in the descending colon and sigmoid colon compatible diverticulosis. There is no CT evidence of diverticulitis. There is no ascites or adenopathy. The visualized lung hess are unremarkable. The unenhanced hepatic parenchyma, pancreas and spleen are unremarkable X for splenic calcified granulomas. There are surgical clips in the gallbladder fossa. The adrenals are unremarkable. There is a fat-containing umbilical hernia. The peritoneal defect measures 12 mm and the hernia sac measures 38 mm. Impression: Diverticulosis without diverticulitis. No ascites. No renal or ureteral calculi. No hydronephrosis. Fat containing umbilical hernia. No bowel distension or obstruction. No ascites, adenopathy or mass. Cholecystectomy. Granulomas in the spleen. Signed by Osmar Hall MD 11/15/2016 04:14 P
[2016-11-16] MEDS: NS 1,000 ML IV SCH (02:45)
[2016-11-16 04:00] VITALS: BP 136/62
[2016-11-16] MEDS: HEPARIN SOD (PORCINE) 5000 UNITS/ML VIAL SC SCH ×3 (05:14→21:17)
[2016-11-16] MEDS: hydrOXYzine 25 MG TAB PO SCH ×3 (05:14→21:17)
[2016-11-16] MEDS: HumaLOG INSULIN (NovoLOG) PER UNIT SC SCH ×4 (05:32→18:00)
[2016-11-16] MEDS ORDERED: D5W/0.45% SODIUM CHLORIDE 1,000 ML IV SCH (05:45)
[2016-11-16 05:50] LABS: BASO # 0.1 K/mm3 (0.0-0.2); BASO % 0.9 % (0.0-1.0); EOS # 0.5 K/mm3 (0.0-0.50); EOS % 5.2 % (0.0-3.0); LARGE UNSTAINED CELL # 0.2 K/mm3 (0.0-0.4); LARGE UNSTAINED CELL % 2.6 % (0.0-4.0); LYMPH # 3.2 K/mm3 (1.5-4.5); LYMPH % 36.6 % (24.0-44.0); MEAN CORPUSCULAR HEMOGLOBIN 27.6 pg (27.0-33.0); MEAN CORPUSCULAR HGB CONC 32.7 g/dl (32.0-36.5); MEAN CORPUSCULAR VOLUME 84.6 fl (80.0-96.0); MONO # 0.4 K/mm3 (0.0-0.8); MONO % 4.8 % (0.0-5.0); NEUTROPHILS # 4.4 K/mm3 (1.8-7.7); NEUTROPHILS % 49.9 % (36.0-66.0); PLATELET COUNT, AUTOMATED 251 k/mm3 (150-450); RED CELL DISTRIBUTION WIDTH 14.2 % (11.5-14.5); WHITE BLOOD COUNT 8.8 K/mm3 (4.0-10.0)
[2016-11-16 06:10] LABS: ALBUMIN 2.6 GM/DL (3.2-5.2); ALBUMIN/GLOBULIN RATIO 0.76 (1.00-1.93); ALT/SGPT 24 U/L (12-78); AMYLASE 81 U/L (25-115); ANION GAP 5 MEQ/L (8-16); AST/SGOT 17 U/L (15-37); BILIRUBIN,DIRECT < 0.1 MG/DL (0.0-0.2); BILIRUBIN,TOTAL 0.2 MG/DL (0.2-1.0); BLOOD UREA NITROGEN 22 MG/DL (7-18); CALCIUM LEVEL 8.2 MG/DL (8.5-10.1); CARBON DIOXIDE LEVEL 28 MEQ/L (21-32); CHLORIDE LEVEL 114 MEQ/L (98-107); CHOLESTEROL LEVEL 193 MG/DL (<200); CREATININE FOR GFR 1.39 MG/DL (0.55-1.02); GLOMERULAR FILTRATION RATE 41.3 (>51); GLUCOSE, FASTING 78 MG/DL (70-105); SODIUM LEVEL 147 MEQ/L (136-145); TRIGLYCERIDES LEVEL 269 MG/DL (<150)
[2016-11-16 06:11] LABS: ALKALINE PHOSPHATASE 141 U/L (45-117)
[2016-11-16 08:00] VITALS: BP 135/63
[2016-11-16] MEDS: VITAMIN D 1,000 INTERNATIONAL UNITS TABLET PO SCH (09:34)
[2016-11-16] MEDS: MEMANTINE 5MG TABLET (NAMENDA) PO SCH ×2 (09:34→21:18)
[2016-11-16] MEDS: FOLIC ACID 1 MG TAB PO SCH ×2 (09:34→21:18)
[2016-11-16] MEDS: ASPIRIN 81 MG ENTERIC TAB PO SCH (09:34)
[2016-11-16] MEDS: ALLOPURINOL 300 MG TAB PO SCH (09:34)
[2016-11-16] MEDS: HYDROXYCHLOROQUINE 200 MG TAB PO SCH ×2 (09:34→21:18)
--- NOTE | 2016-11-16 10:56 | IPNPDOC ---
Subjective Date Seen The patient was seen on 11/16/16. Subjective Chief Complaint/HPI The patient is a 60-year-old female admitted with a reason for visit of Abdominal Pain. Events since last encounter Pt states she is feeling better today, although she states that she has been having several episodes of diarrhea today. She denies Abd pain, nausea, or vomiting. Denies CP or SOB. Constitutional: Denies: Chills, Fever Pulmonary: Denies: Dyspnea Cardiovascular: Denies: Chest Pain Gastrointestinal: Reports: Diarrhea, Denies: Nausea, Vomiting, Abdominal Pain Objective Physical Examination General Exam: Positive: Alert, No Acute Distress Neck Exam: Positive: Supple, Negative: JVD Chest Exam: Positive: Clear to auscultation Heart Exam: Positive: Rate Normal, Regular Rhythm Abdomen Exam: Positive: Normal bowel sounds, Soft, Negative: Tenderness Extremity Exam: Negative: Edema Assessment /Plan Problems (1) Abdominal pain Status: Acute Problem Specific Plan: Monitor Clinically, Repeat Labs Problem Text: 11/16 - H/O pancreatitis. Lipase 789/443/266. Currently NPO. On IVF. Patient had minimal discomfort, doesn't call it "pain", calls it a "tugging". CT: "Diverticulosis without diverticulitis. No ascites. No renal or ureteral calculi. No hydronephrosis. Fat containing umbilical hernia. No bowel distension or obstruction. No ascites, adenopathy or mass. Cholecystectomy. Granulomas in the spleen." Upper GI ordered. (2) Chronic kidney disease Status: Chronic Problem Specific Plan: Monitor Clinically, Repeat Labs Problem Text: 11/16 - Creat 1.39 today (1.62 yesterday). (3) Hypertension Status: Chronic Problem Specific Plan: Monitor Clinically Problem Text: On Cozaar. (4) COPD (chronic obstructive pulmonary disease) Status: Chronic Problem Text: PRN nebs. (5) MARLON (obstructive sleep apnea) Status: Chronic Problem Text: CPAP (6) Rheumatoid arthritis Status: Chronic Plan/VTE VTE Prophylaxis Ordered?: Yes VS, I&O, 24H, Fishbone Vital Signs/I&O Vital Signs Date Time Temp Pulse Resp B/P (MAP) Pulse Ox O2 Delivery O2 Flow Rate FiO2 11/16/16 08:00 98.0 59 18 135/63 (87) 97 NIPPV (BIPAP/CPAP) I&O- Last 24 Hours up to 6 AM 11/17/16 06:00 Intake Total 0 ml Output Total 0 ml Balance 0 ml Laboratory Data 24H LABS Laboratory Tests 2 11/15/16 15:57: Urine Appearance CLEAR, Urine Color STRAW, Urine pH 5.0, Urine Specific [place] 1.006, Urine Protein 1+H, Urine Glucose (UA) NEGATIVE, Urine Ketones NEGATIVE, Urine Urobilinogen 0.2, Urine Bilirubin NEGATIVE, Urine Leukocyte Esterase NEGATIVE, Urine Blood NEGATIVE, Urine Nitrite NEGATIVE, Urine WBC (Auto) 1, Urine RBC (Auto) 0, Urine Hyaline Casts (Auto) 0, Urine Bacteria (Auto) NEGATIVE , Urine Squamous Epithelial Cells 1, Urine Mucus (Auto) SMALL, Urine Sperm (Auto ) 11/15/16 16:14: 11/15/16 16:15: White Blood Count 11.5H, Red Blood Count 4.20, Hemoglobin 11.4L, Hematocrit 35.8L, Mean Corpuscular Volume 85.2, Mean Corpuscular Hemoglobin 27.2, Mean Corpuscular Hemoglobin Concent 31.9L, Red Cell Distribution Width 14.4, Platelet Count 239, Neutrophils (%) (Auto) 71.7H, Lymphocytes (%) (Auto) 17.8L, Monocytes (%) (Auto) 4.1, Eosinophils (%) (Auto) 4.9H, Basophils (%) (Auto) 0.5 , Neutrophils # (Auto) 8.2H, Lymphocytes # (Auto) 2.2, Monocytes # (Auto) 0.5, Eosinophils # (Auto) 0.6H, Basophils # (Auto) 0.0, Large Unclassified Cells % 1.1, Large Unclassified Cells # 0.1, Anion Gap 11, Glomerular Filtration Rate 34.6L, Blood Urea Nitrogen 26H, Creatinine 1.62H, Sodium Level 145, Potassium Level 3.6, Chloride Level 110H, Carbon Dioxide Level 24, Calcium Level 8.6, Aspartate Amino Transf (AST/SGOT) 24, Alanine Aminotransferase (ALT/SGPT) 27, Total Creatine Kinase 79, Alkaline Phosphatase 193H, Total Bilirubin 0.2, Total Protein 7.4, Albumin 3.1L, Creatine Kinase MB 1.4, Creatine Kinase MB Relative Index 1.77, Troponin I < 0.02, Albumin/Globulin Ratio 0.72L, Amylase Level 124H , Lipase 443H 11/16/16 05:17: White Blood Count 8.8, Red Blood Count 3.88L, Hemoglobin 10.7L, Hematocrit 32.8L , Mean Corpuscular Volume 84.6, Mean Corpuscular Hemoglobin 27.6, Mean Corpuscular Hemoglobin Concent 32.7, Red Cell Distribution Width 14.2, Platelet Count 251, Neutrophils (%) (Auto) 49.9, Lymphocytes (%) (Auto) 36.6, Monocytes ( %) (Auto) 4.8, Eosinophils (%) (Auto) 5.2H, Basophils (%) (Auto) 0.9, Neutrophils # (Auto) 4.4, Lymphocytes # (Auto) 3.2, Monocytes # (Auto) 0.4, Eosinophils # (Auto) 0.5, Basophils # (Auto) 0.1, Large Unclassified Cells % 2.6 , Large Unclassified Cells # 0.2, Anion Gap 5L, Glomerular Filtration Rate 41.3L , Calcium Level 8.2L, Aspartate Amino Transf (AST/SGOT) 17, Alanine Aminotransferase (ALT/SGPT) 24, Total Creatine Kinase 42, Alkaline Phosphatase 141H, Total Bilirubin 0.2, Total Protein 6.0L, Albumin 2.6L, Creatine Kinase MB 1.5, Creatine Kinase MB Relative Index 3.57, Troponin I < 0.02, Albumin/ Globulin Ratio 0.76L, Amylase Level 81, Lipase 266, Direct Bilirubin < 0.1, Triglycerides Level 269H, Total Cholesterol 193, LDL Cholesterol 84.2, Non-HDL Cholesterol (LDL + VLDL) 138, Total HDL Cholesterol 55, Cholesterol/HDL Ratio 3.509 11/16/16 05:30: Bedside Glucose (Misc Panel) 74 CBC/BMP Laboratory Tests 11/15/16 16:15 Red Blood Count 4.20, Mean Corpuscular Volume 85.2, Mean Corpuscular Hemoglobin 27.2, Mean Corpuscular Hemoglobin Concent 31.9 L, Red Cell Distribution Width 14.4, Neutrophils (%) (Auto) 71.7 H, Lymphocytes (%) (Auto) 17.8 L, Monocytes (% ) (Auto) 4.1, Eosinophils (%) (Auto) 4.9 H, Basophils (%) (Auto) 0.5, Neutrophils # (Auto) 8.2 H, Lymphocytes # (Auto) 2.2, Monocytes # (Auto) 0.5, Eosinophils # (Auto) 0.6 H, Basophils # (Auto) 0.0, Calcium Level 8.6, Aspartate Amino Transf (AST/SGOT) 24, Alanine Aminotransferase (ALT/SGPT) 27, Total Creatine Kinase 79, Alkaline Phosphatase 193 H, Total Bilirubin 0.2, Total Protein 7.4, Albumin 3.1 L 11/16/16 05:17 Red Blood Count 3.88 L, Mean Corpuscular Volume 84.6, Mean Corpuscular Hemoglobin 27.6, Mean Corpuscular Hemoglobin Concent 32.7, Red Cell Distribution Width 14.2, Neutrophils (%) (Auto) 49.9, Lymphocytes (%) (Auto) 36.6, Monocytes (%) (Auto) 4.8, Eosinophils (%) (Auto) 5.2 H, Basophils (%) ( Auto) 0.9, Neutrophils # (Auto) 4.4, Lymphocytes # (Auto) 3.2, Monocytes # (Auto ) 0.4, Eosinophils # (Auto) 0.5, Basophils # (Auto) 0.1 Microbiology Microbiology 11/15/16 Urine Culture, Received Pending Juan Francisco Durand Nov 16, 2016 10:55 Jordy Willoughby MD Nov 16, 2016 12:24
[2016-11-16] MEDS: predniSONE 2.5 MG TAB PO SCH (11:22)
[2016-11-16] MEDS: CETIRIZINE (ZyrTEC) 10 MG TAB PO SCH (11:22)
[2016-11-16] MEDS: VENLAFAXINE **XR** 75MG CAPSULE PO SCH (11:22)
[2016-11-16] MEDS ORDERED: E-Z-HD 98% w/w 340GM SUSP BTL As Ordered ONE (12:27)
[2016-11-16] MEDS ORDERED: E-Z-PAQUE 96% w/w SUSP 176GM BTL As Ordered ONE (12:27)
[2016-11-16] MEDS ORDERED: E-Z-GAS II EFFERVESCENT PACKET (SODIUM BICARB./CITRIC ACID/SIMETHICONE) As Ordered ONE (12:27)
--- NOTE | 2016-11-16 15:02 | HPE ---
DATE OF ADMISSION: 11/15/2016 PRIMARY CARE PROVIDER: Dr. Nelson Goel, Anahi Lucio NP. HISTORY OF PRESENT ILLNESS: Patient is a pleasant 60-year-old female with past medical history significant of type 2 diabetes, rheumatoid arthritis, lung nodule, chronic kidney disease, osteopenia, diverticulosis, hypertension, reflux disease, obstructive sleep apnea on continuous positive air pressure, chronic obstructive pulmonary disease (COPD), anxiety/depression, who came to [facility] from her primary care provider's office. Patient states that she was sent here because of elevated lipase levels. Patient states that she went to her primary care physician this morning because she has been complaining of 1 month of night sweats, nausea, and chills that happens at the nighttime. She also complains of having an achy tugging around her epigastric area. She states that this feeling only occurs in the nighttime and it wakes her up from her sleep sometimes. She states that it is not a pain but a sensation that she feels. She states that when she flexes her hips toward her chest and turns to her side, it relieves the tugging and she can go back to sleep. Patient states that her night sweats and her nausea and chills episodes have been occurring concurrently with the epigastric achiness. Patient states that she had a history of pancreatic pain in April 2016 and this does not feel anything like that pain. Patient denies having change in skin color, any new medications, unintentional weight loss. She has lost about 6 pounds in the last 2 months from watching her diet for her diabetes. Patient denies any fevers, any diarrhea, any blood in her stool, any significant alcohol use. REVIEW OF SYSTEMS: GENERAL: No fevers. Positive for chills. HEENT: No vision change. No auditory changes. CARDIOVASCULAR: No chest pain. RESPIRATORY: No shortness of breath currently. History of COPD and history of obstructive sleep apnea. ABDOMEN: Positive for achy epigastric sensation. No pain. No vomiting. No diarrhea. No blood in stool. Positive for nausea. MUSCULOSKELETAL: History of rheumatoid arthritis. Denies any joint pain or muscle pain. HOME MEDICATION: - Protonix 40 mg by mouth daily at bedtime - donepezil 10 mg by mouth twice a day - furosemide 40 mg by mouth daily - memantine hydrochloride 10 mg by mouth twice a day - cetirizine 10 mg by mouth daily - Tylenol 650 mg by mouth every 4 hours as needed for pain - allopurinol 300 mg by mouth daily - aspirin 81 mg by mouth daily - vitamin D 2000 units by mouth daily - folic acid 1 mg by mouth twice a day - losartan potassium 25 mg by mouth daily at bedtime - calcitriol 0.25 mcg by mouth three times a week on Monday, Monday, and Monday - hydroxychloroquine sulfate 200 mg by mouth twice a day - prednisone 2.5 by mouth daily - prednisone 5 mg by mouth twice a day as needed for arthritic flares - venlafaxine 150 mg by mouth daily capsule - hydroxyzine 25 mg by mouth every 8 hours tablet - trazodone HCl 200 mg by mouth daily at bedtime - ciprofloxacin 500 mg by mouth twice a day, 14 tablets total ALLERGIES: - PENICILLIN, rash - SULFA, rash - FLAGYL - AUGMENTIN, rash - FLEXERIL, stopped breathing - CODEINE, tachycardia - SERTRALINE, rash PAST MEDICAL HISTORY: 1. Type 2 diabetes. 2. Hyperlipidemia. 3. Rheumatoid factor. 4. Chronic kidney disease stage III. 5. Osteopenia. 6. Diverticulosis. 7. Hypertension. 8. Urge incontinence. 9. Reflux disease. 10. Obstructive sleep apnea, on continuous positive airway pressure (CPAP). 11. COPD. 12. Anxiety/depression. PAST SURGICAL HISTORY: 1. Tonsillectomy. 2. Cholecystectomy. 3. Hysterectomy. 4. Umbilical hernia repair. 5. Left flank lipoma excision in 2009. 6. Left parathyroid adenoma excision in 2010. 7. Right breast sebaceous cyst removal in July 2015. SOCIAL HISTORY: Patient smoked intermittently for 20 years, two packs a day. Restarted smoking a year ago for 6 months, a pack a day. Patient denies alcohol use but does admit to recreational marijuana use (the last time was about a couple months ago). Patient currently lives with her boyfriend. She is disabled and has three daughters and does not have any pets. PHYSICAL EXAM: VITALS: Temperature 98.0, pulse of 76, respiratory rate 18, blood pressure 154/ 77 (99), pulse oximetry 98% on room air. GENERAL: This is a pleasant elderly female who is resting comfortably on her bed , not in any acute distress. HEENT: Pupils are round, reactive to light. Moist mucous membranes. NECK: No lymphadenopathy was appreciated. CARDIOVASCULAR: S1 and S2 sounds are present. Regular rate. No murmurs, no gallops, no rubs are appreciated. LUNGS: Clear to auscultate bilaterally. No wheezing, no rhonchi, no crackles are appreciated. ABDOMEN: Soft abdomen. Nontender, nondistended. No rebound. No guarding. Bowel sounds are present. No tenderness on deep palpation or soft palpation. EXTREMITIES: No edema and no cyanosis are appreciated. LABORATORY DATA: WBC 11.5, hemoglobin 11.4, hematocrit 35.8, platelets 239, neutrophils of 71.7, lymphocytes are 17.8, monocytes of 4.1, eosinophils of 4.9. Chemistries: Sodium is 145, potassium of 3.6, chloride of 110, carbon dioxide 24 , BUN of 26, creatinine of 1.62, fasting glucose of 112, anion gap of 11, calcium of 8.6, total bilirubin of 0.2, AST is 24, ALT is 27, alkaline phosphatase 193, total creatinine kinase 79, CK-MB 1.4, troponin I less than 0.02, total protein 7.4, albumin 3.1, amylase 124, lipase of 443. IMAGING: Abdominal/pelvic CT was examined. Dictated note is not currently done. ASSESSMENT AND PLAN: 1. Abdominal pain most likely due to either reflux, esophagitis, gastritis, hiatal hernia, or PUD. will obtain upper gi series and empiric treatment with PPI and carafate as tolerated. Patient has continued to have nothing by mouth and is supported with IV fluids. Morphine2 mg as needed for severe pain. No risk factors for acute abdomen or infectious etiology. No empiric antibiotics. no significant signs of mesenteric ischemia. 3. Type 2 diabetes. We will consider putting patient on sliding scale tomorrow. Patient is currently nothing by mouth. 4. History of rheumatoid arthritis. Patient is to continue prednisone 2.5. 5. Chronic kidney disease stage III. We will continue to monitor patient's renal function. 6. Hypertension. Patient is to continue on home medication losartan 25 mg nightly by mouth. 7. Gastroesophageal reflux disease (GERD). Continue on home medication Protonix. We will switch to IV. We have also put on board for constipation Dulcolax as needed, if needed, and Zofran for nausea or vomiting as needed. 8. Obstructive sleep apnea. 9. Deep venous thrombosis (DVT) prophylaxis. Currently on heparin. My preceptor for this patient encounter was Dr. Candice Kaplan. The preceptor was physically present in the building during the encounter and was fully available. As needed, all aspects of the patient interview, examination, medical decision making process, and medical care plan development were reviewed and approved by the preceptor. The preceptor is aware and concurs with the plan as stated in the body of this note and will attest to such by his/her cosignature. KRISTOFER
--- NOTE | 2016-11-16 17:28 | REP ---
UPPER GI AIR CONTRAST AND SMALL BOWEL FOLLOW-THROUGH: The procedure was performed under the direct supervision of Dr. Villanueva. The images were reviewed with Dr. Villanueva. The managing member film shows no organomegaly or pathological masses. The intestinal gas pattern is nonspecific. There are surgical clips noted in the right upper quadrant. Liquid barium and gas producing granules were given in the erect position as well as liquid barium in the prone oblique position in order to perform a double contrast upper GI examination. The oral and pharyngeal stages of deglutition are unremarkable. Esophageal transport is prompt and efficient and there is no esophagitis, stricture, mucosal ring, or hiatal hernia. There is gastroesophageal reflux demonstrated to the level of irena. The stomach cohen are normally outlined. The rugal folds are smooth and regular. There is no gastritis, neoplasm or ulcer disease. The duodenal cohen are normally outlined. The mucosal folds are smooth and regular. There is no duodenitis, pancreatitis, peptic ulcer disease, or neoplasm. The visualized portion of the proximal small bowel appears normal in course and caliber. The barium column was followed through the small bowel to the level of the terminal ileum. Small bowel transit time is rapid as there is contrast seen in the transverse colon before the end of the upper GI examination. During fluoroscopy gentle palpation shows all loops are freely movable and pliable. There are no fixed or angulated loops. The small bowel mucosal pattern is normal in course and caliber. There is no transition to suggest a partial small bowel obstruction. Spot filming of terminal ileum shows it to be unremarkable. IMPRESSION: There is gastroesophageal reflux demonstrated to the level of the irena. Small bowel transit time is rapid as there is contrast seen in the transverse colon before the end of the upper GI examination. Otherwise unremarkable double contrast upper GI and small bowel follow through examination. 3 minutes and 29 seconds of fluoroscopy time was utilized for this procedure. Reviewed by BREANA Tamayo 11/18/2016 04:05 PEdited and Signed by Osmar Villanueva MD 11/18/2016 07:21 P
[2016-11-16 17:30] VITALS: BP 165/72
[2016-11-16] MEDS: PANTOPRAZOLE 40MG TAB (PROTONIX) PO SCH (21:18)
[2016-11-16] MEDS: LOSARTAN 25 MG TAB PO SCH (21:18)
[2016-11-16 22:00] VITALS: BP 145/55
[2016-11-16] MEDS: VANCOMYCIN ORAL SOL 250MG/5ML ORAL SYRINGE PO SCH (23:40)
[2016-11-17 06:00] VITALS: BP 154/67
[2016-11-17] MEDS: hydrOXYzine 25 MG TAB PO SCH ×3 (06:24→22:59)
[2016-11-17] MEDS: HEPARIN SOD (PORCINE) 5000 UNITS/ML VIAL SC SCH ×3 (06:24→22:59)
[2016-11-17] MEDS: VANCOMYCIN ORAL SOL 250MG/5ML ORAL SYRINGE PO SCH ×4 (06:25→22:59)
[2016-11-17 06:27] LABS: ALBUMIN 2.5 GM/DL (3.2-5.2); ALBUMIN/GLOBULIN RATIO 0.68 (1.00-1.93); BILIRUBIN,TOTAL 0.1 MG/DL (0.2-1.0); CALCIUM LEVEL 8.5 MG/DL (8.5-10.1); CREATININE FOR GFR 1.16 MG/DL (0.55-1.02); GLOMERULAR FILTRATION RATE 50.9 (>51); POTASSIUM SERUM 3.8 MEQ/L (3.5-5.1); TOTAL PROTEIN 6.2 GM/DL (6.4-8.2)
[2016-11-17] MEDS: HumaLOG INSULIN (NovoLOG) PER UNIT SC SCH ×3 (07:30→18:34)
[2016-11-17] MEDS: HYDROXYCHLOROQUINE 200 MG TAB PO SCH ×2 (08:26→20:41)
[2016-11-17] MEDS: predniSONE 2.5 MG TAB PO SCH (08:27)
[2016-11-17] MEDS: ASPIRIN 81 MG ENTERIC TAB PO SCH (08:27)
[2016-11-17] MEDS: VITAMIN D 1,000 INTERNATIONAL UNITS TABLET PO SCH (08:28)
[2016-11-17] MEDS: MEMANTINE 5MG TABLET (NAMENDA) PO SCH ×2 (08:28→20:41)
[2016-11-17] MEDS: VENLAFAXINE **XR** 75MG CAPSULE PO SCH (08:29)
[2016-11-17] MEDS: CETIRIZINE (ZyrTEC) 10 MG TAB PO SCH (08:29)
[2016-11-17] MEDS: FOLIC ACID 1 MG TAB PO SCH ×2 (08:30→20:41)
[2016-11-17] MEDS: ALLOPURINOL 300 MG TAB PO SCH (08:30)
--- NOTE | 2016-11-17 09:42 | IPNPDOC ---
Subjective Date Seen The patient was seen on 11/17/16. Subjective Chief Complaint/HPI The patient is a 60-year-old female admitted with a reason for visit of Abdominal Pain. Constitutional: Denies: Chills Eyes: Denies: Pain ENT: Denies: Head Aches Skin: Denies: Rash Pulmonary: Denies: Dyspnea, Cough Cardiovascular: Denies: Palpitations, Orthopnea, Paroxysmal Noc. Dyspnea Gastrointestinal: Reports: Abdominal Pain (lower abdominal crampy discomfort with meals. reports stools are more formed), Denies: Nausea, Vomiting Hematologic: Denies: Bruising, Petecchia Endocrine: Denies: Polydipsia Objective Physical Examination General Exam: Positive: Alert, No Acute Distress Eye Exam: Positive: PERRLA, Negative: Sclera icteric Neck Exam: Positive: Supple Chest Exam: Positive: Clear to auscultation Heart Exam: Positive: Rate Normal, Regular Rhythm Abdomen Exam: Positive: Normal bowel sounds, Soft, Negative: Tenderness Extremity Exam: Negative: Edema Assessment /Plan Problems (1) Clostridium difficile enterocolitis Status: Acute Response to Treatment: Improving Problem Text: Improving. Had been on doxycycline followed by charu recently also takes PPI and chronic prednisone. (2) Abdominal pain Status: Acute Response to Treatment: Improving Problem Specific Plan: Monitor Clinically, Repeat Labs Problem Text: 11/16 - H/O pancreatitis. Lipase 789/443/266. Currently NPO. On IVF. Patient had minimal discomfort, doesn't call it "pain", calls it a "tugging". CT: "Diverticulosis without diverticulitis. No ascites. No renal or ureteral calculi. No hydronephrosis. Fat containing umbilical hernia. No bowel distension or obstruction. No ascites, adenopathy or mass. Cholecystectomy. Granulomas in the spleen." Upper GI ordered. (3) Chronic kidney disease Status: Chronic Response to Treatment: Stable Problem Specific Plan: Monitor Clinically, Repeat Labs Problem Text: 11/16 - Creat 1.39 today (1.62 yesterday). (4) Hypertension Status: Chronic Response to Treatment: Stable Problem Specific Plan: Monitor Clinically Problem Text: On Cozaar. (5) COPD (chronic obstructive pulmonary disease) Status: Chronic Response to Treatment: Stable Problem Text: PRN nebs. (6) MARLON (obstructive sleep apnea) Status: Chronic Response to Treatment: Stable Problem Text: CPAP (7) Rheumatoid arthritis Status: Chronic Response to Treatment: Stable Plan/VTE VTE Prophylaxis Ordered?: Yes Plan Anticipated Discharge: Home (Likely discharge tomorrow.) VS, I&O, 24H, Fishbone Vital Signs/I&O Vital Signs Date Time Temp Pulse Resp B/P (MAP) Pulse Ox O2 Delivery O2 Flow Rate FiO2 11/17/16 06:00 96.5 67 19 154/67 (96) 97 NIPPV (BIPAP/CPAP) Laboratory Data 24H LABS Laboratory Tests 2 11/16/16 11:20: Bedside Glucose (Misc Panel) 122H 11/16/16 17:57: Bedside Glucose (Misc Panel) 91 11/16/16 23:50: Bedside Glucose (Misc Panel) 92 11/17/16 05:40: Anion Gap 9, Glomerular Filtration Rate 50.9L, Blood Urea Nitrogen 21H, Creatinine 1.16H, Sodium Level 150H, Potassium Level 3.8, Chloride Level 118H, Carbon Dioxide Level 23, Calcium Level 8.5, Aspartate Amino Transf (AST/SGOT) 20 , Alanine Aminotransferase (ALT/SGPT) 26, Alkaline Phosphatase 155H, Total Bilirubin 0.1L, Total Protein 6.2L, Albumin 2.5L, Albumin/Globulin Ratio 0.68L, Amylase Level 86, Lipase 162 11/17/16 06:19: Bedside Glucose (Misc Panel) 98 CBC/BMP Laboratory Tests 11/17/16 05:40 Calcium Level 8.5, Aspartate Amino Transf (AST/SGOT) 20, Alanine Aminotransferase (ALT/SGPT) 26, Alkaline Phosphatase 155 H, Total Bilirubin 0.1 L, Total Protein 6.2 L, Albumin 2.5 L Microbiology Microbiology 11/16/16 Gastrointestinal Tract Panel (PCR) - Final, Complete Clostridium Difficile A/B 11/15/16 Urine Culture - Final, Complete Jordy Willoughby MD Nov 17, 2016 09:42
[2016-11-17] MEDS ORDERED: FIRS1SOL3 PO (10:07)
[2016-11-17] MEDS: FAMOTIDINE 20 MG TAB PO SCH ×2 (12:55→20:42)
[2016-11-17 14:00] VITALS: BP 144/67
[2016-11-17 16:57] LABS: BASO % 0.4 % (0.0-1.0); EOS # 0.4 K/mm3 (0.0-0.50); EOS % 4.1 % (0.0-3.0); LARGE UNSTAINED CELL # 0.1 K/mm3 (0.0-0.4); LARGE UNSTAINED CELL % 1.4 % (0.0-4.0); LYMPH # 2.1 K/mm3 (1.5-4.5); LYMPH % 20.4 % (24.0-44.0); MEAN CORPUSCULAR HEMOGLOBIN 28.3 pg (27.0-33.0); MEAN CORPUSCULAR HGB CONC 32.9 g/dl (32.0-36.5); MEAN CORPUSCULAR VOLUME 85.9 fl (80.0-96.0); MONO # 0.5 K/mm3 (0.0-0.8); MONO % 4.4 % (0.0-5.0); NEUTROPHILS # 7.1 K/mm3 (1.8-7.7); NEUTROPHILS % 69.3 % (36.0-66.0); PLATELET COUNT, AUTOMATED 267 k/mm3 (150-450); RED CELL DISTRIBUTION WIDTH 14.4 % (11.5-14.5); WHITE BLOOD COUNT 10.2 K/mm3 (4.0-10.0)
[2016-11-17 20:30] VITALS: BP 198/91
[2016-11-17] MEDS ORDERED: ALPRAZolam 0.25 MG TAB PO ONE (20:30)
[2016-11-17 20:42] VITALS: BP 198/91
[2016-11-17] MEDS: LOSARTAN 25 MG TAB PO SCH (20:42)
[2016-11-17] MEDS ORDERED: HumaLOG INSULIN (NovoLOG) PER UNIT SC SCH (21:00)
[2016-11-17 22:00] VITALS: BP 155/76
[2016-11-18] MEDS: HEPARIN SOD (PORCINE) 5000 UNITS/ML VIAL SC SCH (05:38)
[2016-11-18] MEDS: hydrOXYzine 25 MG TAB PO SCH (05:38)
[2016-11-18] MEDS: VANCOMYCIN ORAL SOL 250MG/5ML ORAL SYRINGE PO SCH ×2 (05:39→12:28)
[2016-11-18 06:00] VITALS: BP 152/70
[2016-11-18 06:09] LABS: BASO % 0.5 % (0.0-1.0); EOS # 0.5 K/mm3 (0.0-0.50); EOS % 5.4 % (0.0-3.0); LARGE UNSTAINED CELL # 0.2 K/mm3 (0.0-0.4); LARGE UNSTAINED CELL % 2.3 % (0.0-4.0); LYMPH # 2.9 K/mm3 (1.5-4.5); LYMPH % 30.9 % (24.0-44.0); MEAN CORPUSCULAR HEMOGLOBIN 28.1 pg (27.0-33.0); MEAN CORPUSCULAR HGB CONC 32.8 g/dl (32.0-36.5); MEAN CORPUSCULAR VOLUME 85.9 fl (80.0-96.0); MONO # 0.4 K/mm3 (0.0-0.8); NEUTROPHILS # 5.4 K/mm3 (1.8-7.7); NEUTROPHILS % 56.9 % (36.0-66.0); PLATELET COUNT, AUTOMATED 227 k/mm3 (150-450); RED CELL DISTRIBUTION WIDTH 14.4 % (11.5-14.5); WHITE BLOOD COUNT 9.5 K/mm3 (4.0-10.0)
[2016-11-18 06:23] LABS: CALCIUM LEVEL 8.9 MG/DL (8.5-10.1); CREATININE FOR GFR 1.24 MG/DL (0.55-1.02); GLOMERULAR FILTRATION RATE 47.1 (>51); POTASSIUM SERUM 3.9 MEQ/L (3.5-5.1)
[2016-11-18] MEDS: HumaLOG INSULIN (NovoLOG) PER UNIT SC SCH ×2 (07:30→12:00)
[2016-11-18] MEDS ORDERED: AMLO25TA PO (08:42)
[2016-11-18] MEDS ORDERED: PANTOPRAZOLE 40MG TAB (PROTONIX) PO SCH (09:00)
--- NOTE | 2016-11-18 09:16 | DSES ---
DATE OF ADMISSION: 11/15/2016 DATE OF DISCHARGE: 11/18/2016 REASON FOR ADMISSION: Patient admitted with complaint of epigastric abdominal discomfort, found to have elevated lipase and amylase, and sent to hospital for further evaluation. She had also been having loose stool for a few days. She gives a history of having been treated for lower respiratory infection with doxycycline followed by ciprofloxacin. The gastrointestinal (GI) panel was positive for Clostridium difficile, and patient was started on vancomycin, having a history of allergy to metronidazole. She has responded promptly to treatment with reduction of stool frequency, essentially normalization of stool pattern, and resolution of the abdominal discomfort that initiated the complaint. In recognition of proton pump inhibitor (PPI) increasing risk for relapse and occurrence of Clostridium difficile events, effort was made to discontinue her PPI and switch to an H2 [place]. However, she experienced substernal discomfort overnight with radiation to mid back, which could have a number of differential causes but could easily be increased reflux on this less effective regimen for acid reflux control. CK-MB and troponins were negative following the symptom event, which gradually subsided. She was able to return to sleep after receiving alprazolam. Her creatinine on admission was 1.62. Lasix was held on admission. At that time, she was likely somewhat volume depleted related to her diarrhea illness. On the day of discharge, her creatinine is improved to 1.24, BUN 21, amylase 118. Highest lipase was 443, amylase 124 on the day of admission. The following day, her lipase had dropped to [address] of her abdomen did not show pancreatic anomaly. No edema. No pseudocyst formation. Alkaline phosphatase was observed to be somewhat elevated at 193 initially, dropped to 155 on 11/17/2016. Albumin low at 3.1 on admission, 2.5 on 11/17/2016. DISCHARGE DIAGNOSES: Clostridium difficile enteritis. Symptoms and signs of infection now improved. History of gastroesophageal reflux disease (GERD). Diabetes mellitus type 2, insulin requiring. Stage III chronic kidney disease secondary to diabetes. Transient hypernatremia documented on 11/17/2016. Her sodium is back to 145 today. History of rheumatoid arthritis. No recent flares of disease. CONDITION ON DISCHARGE: Pain free and vital signs still showing slightly elevated blood pressure compared to her baseline, possibly due to discontinuation of furosemide. PLAN: She will be discharged on additional blood pressure medicine amlodipine 25 mg daily, vancomycin 125 mg every 6 hours for 14 days. After the 14-day period, recommendation is to continue the vancomycin at three times per day for at least a week and then twice a day for a week and then daily for a week and then every other day for 2 weeks to help reduce risk for relapse. She will also continue: - Tylenol as needed at her usual dose 650 mg every 4 hours as needed - albuterol/ipratropium nebulizers as needed dyspnea - allopurinol 300 mg daily - aspirin 81 mg daily - calcitriol 0.25 mcg three times per week - cetirizine 10 mg daily - vitamin D 2000 units daily - donepezil 10 mg twice a day - folic acid 1 mg by mouth twice a day - Lasix 40 mg daily - hydroxychloroquine sulfate 200 mg daily - hydroxyzine 25 mg every 8 hours - losartan 25 mg daily - memantine hydrochloride 10 mg twice a day - pantoprazole 40 mg nightly - prednisone 2.5 mg daily and 5 mg by mouth twice a day as needed rheumatoid arthritis flare - trazodone 100 mg daily nightly as needed for sleep - venlafaxine 150 mg of extended release generic form daily Activity will be as tolerated. Diet 2-gram sodium, controlled carbohydrate. Follow with Dr. Goel in 7-10 days. At the time of this dictation, the approval for her vancomycin dosing is still awaiting a blessing of her insurance scheme before we can release patient. Edited: lily 11/20/2016 [id number]
[2016-11-18] MEDS: MEMANTINE 5MG TABLET (NAMENDA) PO SCH (09:32)
[2016-11-18] MEDS: VENLAFAXINE **XR** 75MG CAPSULE PO SCH (09:32)
[2016-11-18] MEDS: ALLOPURINOL 300 MG TAB PO SCH (09:32)
[2016-11-18] MEDS: CETIRIZINE (ZyrTEC) 10 MG TAB PO SCH (09:32)
[2016-11-18] MEDS: FOLIC ACID 1 MG TAB PO SCH (09:32)
[2016-11-18] MEDS: VITAMIN D 1,000 INTERNATIONAL UNITS TABLET PO SCH (09:32)
[2016-11-18] MEDS: predniSONE 2.5 MG TAB PO SCH (09:33)
[2016-11-18] MEDS: ASPIRIN 81 MG ENTERIC TAB PO SCH (09:33)
[2016-11-18] MEDS: HYDROXYCHLOROQUINE 200 MG TAB PO SCH (09:33)
--- NOTE | 2016-11-19 08:00 | ECGEPIP ---
Stationary ECG Study [facility] Test Date: 2016-11-17 Pat Name: JOSE ROBERTO DONIS Department: Room: [place] [address] Gender: F Distribution Field Technician: : [id number] Requested By: BRITTANY DODSON Order Number: [id number] Reading MD: Vlad Sotelo Measurements Intervals [place] Rate: 61 P: 8 CO: 141 QRS: 25 QRSD: 93 T: 43 QT: 437 QTc: 444 Interpretive Statements Normal sinus rhythm Nonspecific ST-T wave abnormalities No significant change when compared to prior tracing of 06/24/2016 Electronically Signed On 11-19-2016 8:00:13 EDT by Vlad Sotelo
== END 2016-11-18 13:45 | disposition home or self-care (01) | DRG 248 ==
LOC: M ED 15:07 → M ED INP 17:29 → M PCU 19:50 → M MSPAV 11-16 17:15
PROVIDERS: ADMIT General Practice; ATTEND Family Medicine
DX: A04.7 Enterocolitis due to Clostridium difficile (principal); E87.0 Hyperosmolality and hypernatremia; E11.29 Type 2 diabetes mellitus with other diabetic kidney complication; J44.9 Chronic obstructive pulmonary disease, unspecified; N18.3 Chronic kidney disease, stage 3 (moderate); K21.9 Gastro-esophageal reflux disease without esophagitis; M06.9 Rheumatoid arthritis, unspecified; Z79.899 Other long term (current) drug therapy; Z79.82 Long term (current) use of aspirin; G47.33 Obstructive sleep apnea (adult) (pediatric); R91.1 Solitary pulmonary nodule; K57.30 Diverticulosis of large intestine without perforation or abscess without bleeding; I12.9 Hypertensive chronic kidney disease with stage 1 through stage 4 chronic kidney disease, or unspecified chronic kidney disease; F41.9 Anxiety disorder, unspecified; F32.9 Major depressive disorder, single episode, unspecified; Z88.0 Allergy status to penicillin; Z88.2 Allergy status to sulfonamides; Z88.5 Allergy status to narcotic agent; Z88.8 Allergy status to other drugs, medicaments and biological substances; E78.5 Hyperlipidemia, unspecified

== ENCOUNTER → 2016-11-15 | Outpatient (REF) | payer OTHER ==
[2016-11-15 13:59] LABS: BASO # 0.1 K/mm3 (0.0-0.2); BASO % 0.8 % (0.0-1.0); EOS # 0.4 K/mm3 (0.0-0.50); EOS % 4.6 % (0.0-3.0); LARGE UNSTAINED CELL # 0.1 K/mm3 (0.0-0.4); LARGE UNSTAINED CELL % 0.7 % (0.0-4.0); LYMPH # 2.4 K/mm3 (1.5-4.5); LYMPH % 24.6 % (24.0-44.0); MEAN CORPUSCULAR HEMOGLOBIN 26.2 pg (27.0-33.0); MEAN CORPUSCULAR HGB CONC 30.3 g/dl (32.0-36.5); MEAN CORPUSCULAR VOLUME 86.3 fl (80.0-96.0); MONO # 0.5 K/mm3 (0.0-0.8); MONO % 5.1 % (0.0-5.0); NEUTROPHILS # 6.1 K/mm3 (1.8-7.7); NEUTROPHILS % 64.2 % (36.0-66.0); PLATELET COUNT, AUTOMATED 274 k/mm3 (150-450); RED CELL DISTRIBUTION WIDTH 14.4 % (11.5-14.5); WHITE BLOOD COUNT 9.4 K/mm3 (4.0-10.0)
[2016-11-15 14:03] LABS: ALBUMIN 3.4 GM/DL (3.2-5.2); ALBUMIN/GLOBULIN RATIO 0.77 (1.00-1.93); BILIRUBIN,TOTAL 0.3 MG/DL (0.2-1.0); CALCIUM LEVEL 8.6 MG/DL (8.5-10.1); CREATININE FOR GFR 1.62 MG/DL (0.55-1.02); GLOMERULAR FILTRATION RATE 34.6 (>51); POTASSIUM SERUM 3.4 MEQ/L (3.5-5.1); TOTAL PROTEIN 7.8 GM/DL (6.4-8.2)
== END ==
LOC: M SFHCPLAZ 10:55
PROVIDERS: ATTEND Nurse Practitioner Family
DX: N18.3 Chronic kidney disease, stage 3 (moderate) (principal); K86.1 Other chronic pancreatitis; E11.9 Type 2 diabetes mellitus without complications

== ENCOUNTER → 2016-12-05 | Outpatient (CLI) | payer OTHER ==
[~2016-12-05] MED LIST changes: +AMLO25TA PO; +FIRS1SOL3 PO; +IPRASOL4 INH
--- NOTE | 2016-12-05 14:53 | REP ---
MR LUMBAR SPINE WITHOUT CONTRAST: HISTORY: Bilateral leg weakness. Decreased signal intensity on T2-weighted images is present in the L2-3, L4-5, and L5-S1 intervertebral discs. The discs are decreased in height. These findings are consistent with disc degeneration. There is no disc bulge or herniation at the L1-2 through L3-4 levels. There is hypertrophy of the posterior articulating facets at the L2-3 and L3-4 levels. The nerves exit the neural foramina without compression. A diffuse disc bulge is present at the L4-5 level. There is minimal compression of the thecal sac. There is hypertrophy of the posterior articulating facets. The L4 nerves exit the neural foramina without compression. A diffuse disc bulge and small central disc extrusion are present at the L5-S1 level. The disc extrusion abuts the thecal sac and S1 nerves. There is hypertrophy of the posterior articulating facets. The L5 nerves exit the neural foramina without compression. The conus medullaris is normal in appearance terminating at the level of the L1-2 intervertebral disc. Normal signal intensity is present in the lumbar vertebral bodies. IMPRESSION: 1. Diffuse disc bulge of the L4-5 level with minimal thecal sac compression. 2. Diffuse disc bulge and small central disc extrusion at the L5-S1 level. The disc extrusion abuts the thecal sac and S1 nerves. Signed by Darren Ragsdale MD 12/05/2016 02:55 P
== END ==
LOC: M PLARAD 13:30
PROVIDERS: ATTEND Nurse Practitioner Family
DX: M54.5 Low back pain (principal); R29.6 Repeated falls; R29.898 Other symptoms and signs involving the musculoskeletal system

== ENCOUNTER → 2017-01-25 | Outpatient (REF) | payer OTHER ==
[~2017-01-25] MED LIST changes: +AMLO5TAB2 PO; +VITA100067 PO
[2017-01-25 20:04] LABS: ALBUMIN 3.2 GM/DL (3.2-5.2); ALBUMIN/GLOBULIN RATIO 0.8 (1.00-1.93); BILIRUBIN,TOTAL 0.1 MG/DL (0.2-1.0); CALCIUM LEVEL 8.5 MG/DL (8.8-10.2); CREATININE FOR GFR 1.55 MG/DL (0.55-1.02); FREE T4 1.01 NG/DL (0.76-1.46); GLOMERULAR FILTRATION RATE 36.3 (>45); POTASSIUM SERUM 3.4 MEQ/L (3.5-5.1); TOTAL PROTEIN 7.2 GM/DL (6.4-8.2)
== END ==
LOC: M SFHCPLAZ 13:42
PROVIDERS: ATTEND Nurse Practitioner Family
DX: I12.9 Hypertensive chronic kidney disease with stage 1 through stage 4 chronic kidney disease, or unspecified chronic kidney disease (principal); N18.3 Chronic kidney disease, stage 3 (moderate)

== ENCOUNTER → 2017-01-25 | Outpatient (REF) | payer OTHER ==
[2017-01-25 16:41] LABS: BASO # 0.1 10^3/uL (0.0-0.2); BASO % 0.8 % (0.0-1.0); EOS # 0.7 10^3/uL (0.0-0.50); EOS % 7.9 % (0.0-3.0); IMMATURE GRANULOCYTE % 0.4 % (0-0); LYMPH # 1.7 10^3/uL (1.5-4.5); LYMPH % 20.7 % (24.0-44.0); MEAN CORPUSCULAR HEMOGLOBIN 26.6 pg (27.0-33.0); MEAN CORPUSCULAR HGB CONC 30.6 g/dl (32.0-36.5); MEAN CORPUSCULAR VOLUME 86.9 fl (80.0-96.0); MONO # 0.5 10^3/uL (0.0-0.8); MONO % 5.7 % (0.0-5.0); NEUTROPHILS # 5.4 10^3/uL (1.8-7.7); NEUTROPHILS % 64.5 % (36.0-66.0); PLATELET COUNT, AUTOMATED 257 10^3/uL (150-450); RED CELL DISTRIBUTION WIDTH 14.9 % (11.5-14.5); WHITE BLOOD COUNT 8.4 10^3/uL (4.0-10.0)
[2017-01-25 19:58] LABS: ALKALINE PHOSPHATASE 172 U/L (45-117); ALT/SGPT 23 U/L (12-78); AST/SGOT 18 U/L (7-37); BILIRUBIN,TOTAL 0.2 MG/DL (0.2-1.0); BLOOD UREA NITROGEN 16 MG/DL (7-18); CALCIUM LEVEL 8.7 MG/DL (8.8-10.2); CARBON DIOXIDE LEVEL 27 MEQ/L (21-32); CHLORIDE LEVEL 106 MEQ/L (98-107); CREATININE FOR GFR 1.59 MG/DL (0.55-1.02); GLUCOSE, FASTING 181 MG/DL (80-110); POTASSIUM SERUM 3.4 MEQ/L (3.5-5.1)
[2017-01-25 20:07] LABS: URIC ACID 3.3 MG/DL (2.6-6.0)
[2017-01-25 20:58] LABS: ANION GAP 9 MEQ/L (8-16); SODIUM LEVEL 142 MEQ/L (136-145)
[2017-01-25 20:59] LABS: ALBUMIN 3.1 GM/DL (3.2-5.2); ALBUMIN/GLOBULIN RATIO 0.79 (1.00-1.93)
[2017-01-27 07:17] LABS: ERYTHROCYTE SEDIMENTATION RATE 61 mm/hr (0-30)
== END ==
LOC: M LABDRAWP 15:29
PROVIDERS: ATTEND Internal Medicine Rheumatology
DX: M05.79 Rheumatoid arthritis with rheumatoid factor of multiple sites without organ or systems involvement (principal)

== ENCOUNTER → 2017-02-15 | Day surgery (SDC) | payer OTHER ==
[~2017-02-15] VITALS: Ht 160 cm; Wt 75.7 kg
[~2017-02-15] MED LIST changes: +ACETYLCHOLINE OPHTH SOLN 1% 2ML (MIOCHOL-E) As Ordered ONE; +CYCLOPENTOLATE 2% OPHTH SOLN 2ML BTL OD ONE; +HEALON DUET (HEALON 10MG/ML 0.55ML & HEALON ENDOCOAT 30MG/ML 0.85ML) As Ordered ONE; +LIDOCAINE 1% MDV 20ML VIAL SQ PRN; +LIDOCAINE 1% SDV 5 ML VIAL As Ordered ONE; +LIDOCAINE 3.5 % 1ML OPHTH TOPICAL GEL OU ONE; +MIDAZOLAM INJ 2 MG/2 ML VIAL (J2250) As Ordered ONE; +OFLOXACIN 0.3 % (OCUFLOX) OPTH SOL 5ML OD ONE; +PHENYLEPHRINE 2.5% OPHTH SOL 2ML OD ONE; +PHENYLEPHRINE HCL 10 % OPHTH. SOL 5ML OD PRN; +POVIDONE-IODINE 5% OPHTH PREP SOL 30ML As Ordered ONE; +TROPICAMIDE 1% OPHTH SOLN 2ML OD ONE; +fentaNYL 100 MCG/2 ML INJECTION (J3010) As Ordered ONE
[2017-02-15 10:10] VITALS: BP 179/74
--- NOTE | 2017-02-17 11:46 | RO ---
DATE OF PROCEDURE: 02/15/2017 PREPROCEDURE DIAGNOSIS: Age-related nuclear cataract, right eye. POSTPROCEDURE DIAGNOSIS: Age-related nuclear cataract, right eye. PROCEDURE: Phacoemulsification and posterior chamber intraocular lens implantation, right eye. The lens used was AU00T0, 27.0 Diopter. SURGEON: Melissa Lowe MD USER EXPERIENCE MANAGER: ANESTHESIA: Topical with sedation. DESCRIPTION OF PROCEDURE: The patient was prepped and draped in the usual fashion. A lid speculum was placed between the lids. The eye was fixated. A stab incision was made to the anterior chamber, and 1% non-preserved lidocaine was instilled. Then, viscoelastic was instilled. The eye was re-fixated. A 2.75 mm sapphire keratome was used to make a clear corneal temporal limbal incision. Capsulorrhexis was begun with a 30-gauge bent needle and then carried out in a circular fashion with capsulorrhexis forceps. The lens was hydrodissected, and then the phacoemulsification unit was used to make a groove in the nucleus in two meridians. The nucleus was then cracked into four quadrants. Each quadrant was removed with the phacoemulsification unit. Any remaining cortex was removed with the irrigation and aspiration (I and A) unit. Capsular bag was refilled with viscoelastic. A posterior chamber intraocular lens was placed in the capsular bag without difficulty. Any remaining viscoelastic was removed with the I and A unit. The wound was hydrated, and Miochol and cefuroxime were instilled into the anterior chamber. The patient tolerated the procedure well and went to the recovery room in stable condition.
== END | disposition home or self-care (01) ==
LOC: M SDC 07:40
PROVIDERS: ATTEND Ophthalmology
DX: H25.11 Age-related nuclear cataract, right eye (principal); I11.9 Hypertensive heart disease without heart failure; E78.00 Pure hypercholesterolemia, unspecified; G47.33 Obstructive sleep apnea (adult) (pediatric); E11.9 Type 2 diabetes mellitus without complications; K21.9 Gastro-esophageal reflux disease without esophagitis; M19.90 Unspecified osteoarthritis, unspecified site; J45.909 Unspecified asthma, uncomplicated; J44.9 Chronic obstructive pulmonary disease, unspecified; E21.5 Disorder of parathyroid gland, unspecified; N28.9 Disorder of kidney and ureter, unspecified; F17.210 Nicotine dependence, cigarettes, uncomplicated; Z88.0 Allergy status to penicillin; Z88.2 Allergy status to sulfonamides; Z88.5 Allergy status to narcotic agent; Z88.8 Allergy status to other drugs, medicaments and biological substances; Z79.899 Other long term (current) drug therapy; Z79.82 Long term (current) use of aspirin

== ENCOUNTER 2017-02-22 09:56 | Day surgery (SDC) | payer OTHER ==
[~2017-02-22] VITALS: Ht 160 cm; Wt 76.7 kg
[~2017-02-22 09:56] MED LIST changes: -ACETYLCHOLINE OPHTH SOLN 1% 2ML (MIOCHOL-E) As Ordered ONE; -CYCLOPENTOLATE 2% OPHTH SOLN 2ML BTL OD ONE; +CYCLOPENTOLATE 2% OPHTH SOLN 2ML BTL OS ONE; -HEALON DUET (HEALON 10MG/ML 0.55ML & HEALON ENDOCOAT 30MG/ML 0.85ML) As Ordered ONE; -LIDOCAINE 1% MDV 20ML VIAL SQ PRN; -LIDOCAINE 1% SDV 5 ML VIAL As Ordered ONE; -MIDAZOLAM INJ 2 MG/2 ML VIAL (J2250) As Ordered ONE; -OFLOXACIN 0.3 % (OCUFLOX) OPTH SOL 5ML OD ONE; +OFLOXACIN 0.3 % (OCUFLOX) OPTH SOL 5ML OS ONE; -PHENYLEPHRINE 2.5% OPHTH SOL 2ML OD ONE; +PHENYLEPHRINE 2.5% OPHTH SOL 2ML OS ONE; -PHENYLEPHRINE HCL 10 % OPHTH. SOL 5ML OD PRN; +PHENYLEPHRINE HCL 10 % OPHTH. SOL 5ML OS PRN; -POVIDONE-IODINE 5% OPHTH PREP SOL 30ML As Ordered ONE; -TROPICAMIDE 1% OPHTH SOLN 2ML OD ONE; +TROPICAMIDE 1% OPHTH SOLN 2ML OS ONE; -fentaNYL 100 MCG/2 ML INJECTION (J3010) As Ordered ONE
[2017-02-22] MEDS ORDERED: LIDOCAINE 1% SDV 5 ML VIAL As Ordered ONE (11:32)
[2017-02-22] MEDS ORDERED: HEALON DUET (HEALON 10MG/ML 0.55ML & HEALON ENDOCOAT 30MG/ML 0.85ML) As Ordered ONE (11:32)
[2017-02-22] MEDS ORDERED: ACETYLCHOLINE OPHTH SOLN 1% 2ML (MIOCHOL-E) As Ordered ONE (11:32)
[2017-02-22] MEDS ORDERED: POVIDONE-IODINE 5% OPHTH PREP SOL 30ML As Ordered ONE (11:32)
[2017-02-22] MEDS ORDERED: CEFUROXIME 1MG/0.1ML INTRACAMERAL INJ As Ordered ONE (11:32)
[2017-02-22] MEDS ORDERED: MIDAZOLAM INJ 2 MG/2 ML VIAL (J2250) As Ordered ONE (11:47)
[2017-02-22] MEDS ORDERED: fentaNYL 100 MCG/2 ML INJECTION (J3010) As Ordered ONE (11:47)
[2017-02-22 12:35] VITALS: BP 152/73
--- NOTE | 2017-02-22 21:50 | RO ---
DATE OF PROCEDURE: 02/22/2017 PREPROCEDURE DIAGNOSIS: Age-related nuclear cataract left eye. POSTPROCEDURE DIAGNOSIS: Age-related nuclear cataract left eye. PROCEDURE: Phacoemulsification and posterior chamber intraocular lens implantation left eye. The lens used was PCB00, 29.0 diopters. SURGEON: Melissa Lowe MD BRASS PLATER: ANESTHESIA: Topical with sedation. DESCRIPTION OF PROCEDURE: The patient was prepped and draped in the usual fashion. A lid speculum was placed between the lids. The eye was fixated. A stab incision was made to the anterior chamber, and 1% non-preserved lidocaine was instilled. Then, viscoelastic was instilled. The eye was re-fixated. A 2.75 mm sapphire keratome was used to make a clear corneal temporal limbal incision. Capsulorrhexis was begun with a 30-gauge bent needle and then carried out in a circular fashion with capsulorrhexis forceps. The lens was hydrodissected, and then the phacoemulsification unit was used to make a groove in the nucleus in two meridians. The nucleus was then cracked into four quadrants. Each quadrant was removed with the phacoemulsification unit. Any remaining cortex was removed with the irrigation and aspiration (I and A) unit. Capsular bag was refilled with viscoelastic. A posterior chamber intraocular lens was placed in the capsular bag without difficulty. Any remaining viscoelastic was removed with the I and A unit. The wound was hydrated, and Miochol and cefuroxime were instilled into the anterior chamber. The patient tolerated the procedure well and went to the recovery room in stable condition.
== END 2017-02-22 12:45 | disposition home or self-care (01) ==
LOC: M SDC 09:56
PROVIDERS: ATTEND Ophthalmology
DX: H25.12 Age-related nuclear cataract, left eye (principal); I12.9 Hypertensive chronic kidney disease with stage 1 through stage 4 chronic kidney disease, or unspecified chronic kidney disease; E78.5 Hyperlipidemia, unspecified; I51.7 Cardiomegaly; E11.9 Type 2 diabetes mellitus without complications; K21.9 Gastro-esophageal reflux disease without esophagitis; M12.9 Arthropathy, unspecified; J45.909 Unspecified asthma, uncomplicated; J44.9 Chronic obstructive pulmonary disease, unspecified; R06.02 Shortness of breath; R06.83 Snoring; G47.33 Obstructive sleep apnea (adult) (pediatric); N18.3 Chronic kidney disease, stage 3 (moderate); M85.80 Other specified disorders of bone density and structure, unspecified site; N39.41 Urge incontinence; K57.30 Diverticulosis of large intestine without perforation or abscess without bleeding; M67.40 Ganglion, unspecified site; Z88.0 Allergy status to penicillin; Z88.2 Allergy status to sulfonamides; Z88.5 Allergy status to narcotic agent; Z88.6 Allergy status to analgesic agent; Z88.8 Allergy status to other drugs, medicaments and biological substances; Z79.899 Other long term (current) drug therapy; Z79.82 Long term (current) use of aspirin; Z90.710 Acquired absence of both cervix and uterus; Z78.0 Asymptomatic menopausal state; Z87.891 Personal history of nicotine dependence

== ENCOUNTER → 2017-03-21 | Outpatient (REF) | payer OTHER ==
[2017-03-21 14:38] LABS: ESTIMATED AVERAGE GLUCOSE 123 MG/DL (60-110); HEMOGLOBIN A1c 5.9 %
== END ==
LOC: M SFHCPLAZ 13:04
DX: R73.03 Prediabetes (principal)

== ENCOUNTER 2017-04-18 17:51 | Emergency (ER) | payer OTHER ==
[2017-04-18 18:43] LABS: BASO # 0.1 10^3/uL (0.0-0.2); BASO % 0.6 % (0.0-1.0); EOS # 0.7 10^3/uL (0.0-0.50); EOS % 6.6 % (0.0-3.0); HEMATOCRIT 30.4 % (36.0-47.0); HEMOGLOBIN 9.5 g/dl (12.0-16.0); IMMATURE GRANULOCYTE % 0.5 % (0-3.0); LYMPH # 1.9 10^3/uL (1.5-4.5); LYMPH % 17.4 % (24.0-44.0); MEAN CORPUSCULAR HGB CONC 31.3 g/dl (32.0-36.5); MEAN CORPUSCULAR VOLUME 83.1 fl (80.0-96.0); MONO # 0.7 10^3/uL (0.0-0.8); MONO % 6.7 % (0.0-5.0); NEUTROPHILS # 7.4 10^3/uL (1.8-7.7); NEUTROPHILS % 68.2 % (36.0-66.0); PLATELET COUNT, AUTOMATED 193 10^3/uL (150-450); RED BLOOD COUNT 3.66 10^6/uL (4.00-5.40); RED CELL DISTRIBUTION WIDTH 14.7 % (11.5-14.5); WHITE BLOOD COUNT 10.8 10^3/uL (4.0-10.0)
[2017-04-18 18:55] LABS: INR 0.94; PROTHROMBIN TIME 12.6 SECONDS (12.4-14.5)
[2017-04-18 18:56] LABS: PARTIAL THROMBOPLASTIN TIME 26.9 SECONDS (26.8-37.9)
[2017-04-18 19:23] LABS: ANION GAP 9 MEQ/L (8-16); BLOOD UREA NITROGEN 17 MG/DL (7-18); CALCIUM LEVEL 8.2 MG/DL (8.8-10.2); CARBON DIOXIDE LEVEL 30 MEQ/L (21-32); CHLORIDE LEVEL 94 MEQ/L (98-107); CPK CREATINE PHOSPHOKINASE 39 U/L (26-192); CREATININE FOR GFR 1.44 MG/DL (0.55-1.30); GLOMERULAR FILTRATION RATE 39.5 (>45); GLUCOSE, FASTING 116 MG/DL (70-100); MB/CK RELATIVE INDEX 2.56 (< OR =4); POTASSIUM SERUM 3.2 MEQ/L (3.5-5.1); SODIUM LEVEL 133 MEQ/L (136-145); TROPONIN I < 0.02 NG/ML (< 0.10)
[2017-04-18] MEDS: ASPIRIN 325 MG TAB PO (19:45)
[2017-04-18] MEDS: ACETAMINOPHEN 325 MG TAB PO (20:44)
[2017-04-18 22:57] LABS: CPK CREATINE PHOSPHOKINASE 39 U/L (26-192); TROPONIN I < 0.02 NG/ML (< 0.10)
[2017-04-18 22:58] LABS: MB/CK RELATIVE INDEX 2.56 (< OR =4)
[2017-04-18] MEDS: POTASSIUM CHLORIDE 10 MEQ SR TABLET PO (23:15)
== END 2017-04-18 23:34 | disposition home or self-care (01) ==
LOC: M ED 17:51
DX: R07.89 Other chest pain (principal); E87.6 Hypokalemia; E11.9 Type 2 diabetes mellitus without complications; I10 Essential (primary) hypertension; K21.9 Gastro-esophageal reflux disease without esophagitis; J44.9 Chronic obstructive pulmonary disease, unspecified; M06.9 Rheumatoid arthritis, unspecified; N28.9 Disorder of kidney and ureter, unspecified; M81.0 Age-related osteoporosis without current pathological fracture; M54.9 Dorsalgia, unspecified; G89.29 Other chronic pain; Z87.891 Personal history of nicotine dependence; Z88.5 Allergy status to narcotic agent; Z88.8 Allergy status to other drugs, medicaments and biological substances; Z88.0 Allergy status to penicillin; Z88.2 Allergy status to sulfonamides; Z79.899 Other long term (current) drug therapy; Z79.82 Long term (current) use of aspirin; Z79.52 Long term (current) use of systemic steroids
CPT/HCPCS: 71046

== ENCOUNTER → 2017-04-18 | Outpatient (CLI) | payer OTHER | LOC: M RAD 12:53 | DX: R33.8 Other retention of urine (principal) | CPT/HCPCS: 76857 ==

== ENCOUNTER → 2017-05-03 | Outpatient (REF) | payer OTHER ==
[2017-05-03 13:36] LABS: RETIC HEMOGLOBIN EQUIVALENT 29.9 pg (24-36); RETICULOCYTE # 79.7 10^9/L (17-77); RETICULOCYTE % 1.8 % (0.5-1.5)
[2017-05-03 14:24] LABS: ANION GAP 8 MEQ/L (8-16); BLOOD UREA NITROGEN 17 MG/DL (7-18); CALCIUM LEVEL 8.6 MG/DL (8.8-10.2); CARBON DIOXIDE LEVEL 25 MEQ/L (21-32); CHLORIDE LEVEL 110 MEQ/L (98-107); CREATININE FOR GFR 1.27 MG/DL (0.55-1.30); GLOMERULAR FILTRATION RATE 45.7 (>45); GLUCOSE, FASTING 114 MG/DL (70-100); IRON (FE) 74 UG/DL (50-170); PERCENT SATURATION 27.6 % (13.2-45.0); POTASSIUM SERUM 3.7 MEQ/L (3.5-5.1); SODIUM LEVEL 143 MEQ/L (136-145); TOTAL IRON BINDING CAPACITY 268 UG/DL (250-450)
== END ==
LOC: M SFHCPLAZ 11:23
DX: D64.9 Anemia, unspecified (principal); E87.1 Hypo-osmolality and hyponatremia

== ENCOUNTER → 2017-05-08 | Outpatient (CLI) | payer OTHER | LOC: M RAD 11:27 | DX: G45.9 Transient cerebral ischemic attack, unspecified (principal) | CPT/HCPCS: 93880 ==

== ENCOUNTER 2017-06-13 22:53 | Emergency (ER) | payer OTHER ==
[2017-06-14] MEDS: NORCO 5/325MG TABLET (BULK FOR ED) PO (01:25)
== END 2017-06-14 01:32 | disposition home or self-care (01) ==
LOC: M ED 22:53
DX: S20.221A Contusion of right back wall of thorax, initial encounter (principal); W19.XXXA Unspecified fall, initial encounter; Y92.9 Unspecified place or not applicable; Y93.89 Activity, other specified; Y99.9 Unspecified external cause status; E11.9 Type 2 diabetes mellitus without complications; I10 Essential (primary) hypertension; J44.9 Chronic obstructive pulmonary disease, unspecified; G89.29 Other chronic pain; M54.9 Dorsalgia, unspecified; Z86.73 Personal history of transient ischemic attack (TIA), and cerebral infarction without residual deficits; N18.3 Chronic kidney disease, stage 3 (moderate); F03.90 Unspecified dementia, unspecified severity, without behavioral disturbance, psychotic disturbance, mood disturbance, and anxiety; M51.9 Unspecified thoracic, thoracolumbar and lumbosacral intervertebral disc disorder; Z79.82 Long term (current) use of aspirin; Z79.899 Other long term (current) drug therapy; Z88.0 Allergy status to penicillin; Z88.2 Allergy status to sulfonamides; Z88.6 Allergy status to analgesic agent; Z88.8 Allergy status to other drugs, medicaments and biological substances; Z88.5 Allergy status to narcotic agent
CPT/HCPCS: 71101

== ENCOUNTER → 2017-06-15 | Outpatient (REF) | payer OTHER ==
[2017-06-15 15:41] LABS: HEMATOCRIT 31.8 % (36.0-47.0); HEMOGLOBIN 9.8 g/dl (12.0-15.5); MEAN CORPUSCULAR HGB CONC 30.8 g/dl (32.0-36.5); MEAN CORPUSCULAR VOLUME 84.4 fl (80.0-96.0); PLATELET COUNT, AUTOMATED 210 10^3/uL (150-450); RED BLOOD COUNT 3.77 10^6/uL (4.00-5.40); RED CELL DISTRIBUTION WIDTH 14.7 % (11.5-14.5); WHITE BLOOD COUNT 11.1 10^3/uL (4.0-10.0)
== END ==
LOC: M SFHCPLAZ 13:56
DX: D64.9 Anemia, unspecified (principal)

== ENCOUNTER → 2017-08-09 | Outpatient (REF) | payer OTHER ==
[2017-08-09 20:07] LABS: ESTIMATED AVERAGE GLUCOSE 140 MG/DL (60-110); HEMOGLOBIN A1c 6.5 %
[2017-08-09 20:11] LABS: ANION GAP 11 MEQ/L (8-16); BLOOD UREA NITROGEN 23 MG/DL (7-18); CALCIUM LEVEL 9.3 MG/DL (8.8-10.2); CARBON DIOXIDE LEVEL 22 MEQ/L (21-32); CHLORIDE LEVEL 112 MEQ/L (98-107); CHOLESTEROL LEVEL 229 MG/DL (<200); CHOLESTEROL RISK RATIO 3.754 (<5); CREATININE FOR GFR 1.56 MG/DL (0.55-1.30); FERRITIN 56 NG/ML (8-252); GLUCOSE, FASTING 113 MG/DL (70-100); HDL CHOLESTEROL 61 MG/DL (>40); IRON (FE) 66 UG/DL (50-170); LDL CHOLESTEROL 93.6 MG/DL (<100); NON-HDL-C 168 MG/DL; PERCENT SATURATION 21.1 % (13.2-45.0); SODIUM LEVEL 145 MEQ/L (136-145); TOTAL IRON BINDING CAPACITY 313 UG/DL (250-450); TRIGLYCERIDES LEVEL 372 MG/DL (<150)
[2017-08-09 20:13] LABS: TOTAL 25(OH) VITAMIN D 24.6 NG/ML (30.0-100.0)
[2017-08-09 20:20] LABS: BASO # 0.1 10^3/uL (0.0-0.2); BASO % 0.6 % (0.0-1.0); EOS # 0.8 10^3/uL (0.0-0.50); EOS % 6.2 % (0.0-3.0); HEMATOCRIT 38.2 % (36.0-47.0); HEMOGLOBIN 11.7 g/dl (12.0-15.5); IMMATURE GRANULOCYTE % 0.4 % (0-3.0); LYMPH # 2.9 10^3/uL (1.5-4.5); LYMPH % 22.7 % (24.0-44.0); MEAN CORPUSCULAR HEMOGLOBIN 25.1 pg (27.0-33.0); MEAN CORPUSCULAR HGB CONC 30.6 g/dl (32.0-36.5); MEAN CORPUSCULAR VOLUME 81.8 fl (80.0-96.0); MONO # 0.8 10^3/uL (0.0-0.8); MONO % 6.4 % (0.0-5.0); NEUTROPHILS # 8.2 10^3/uL (1.8-7.7); NEUTROPHILS % 63.7 % (36.0-66.0); PLATELET COUNT, AUTOMATED 245 10^3/uL (150-450); RED BLOOD COUNT 4.67 10^6/uL (4.00-5.40); RED CELL DISTRIBUTION WIDTH 15.1 % (11.5-14.5); RETIC HEMOGLOBIN EQUIVALENT 29.1 pg (24-36); RETICULOCYTE # 99.9 10^9/L (17-77); RETICULOCYTE % 2.1 % (0.5-1.5); WHITE BLOOD COUNT 12.9 10^3/uL (4.0-10.0)
[2017-08-09 21:04] LABS: MAU/CREAT RATIO 1675.3 MCG/MG (0.0-30.0)
[2017-08-11 10:16] LABS: HAPTOGLOBIN 250 mg/dL (34-200)
[2017-08-11 10:16] LABS: TRANSFERRIN 242 mg/dL (200-370)
== END ==
LOC: M SFHCPLAZ 15:14
DX: R61 Generalized hyperhidrosis (principal); D64.9 Anemia, unspecified; E11.21 Type 2 diabetes mellitus with diabetic nephropathy; E78.2 Mixed hyperlipidemia; N18.3 Chronic kidney disease, stage 3 (moderate); E55.9 Vitamin D deficiency, unspecified
CPT/HCPCS: 83010

== ENCOUNTER → 2017-09-07 | Outpatient (REF) | payer OTHER ==
[2017-09-08 11:04] LABS: HIV 1&2 SCREEN CENTAUR NEGATIVE (NEGATIVE)
== END ==
LOC: M SFHCPLAZ 14:54
DX: Z20.6 Contact with and (suspected) exposure to human immunodeficiency virus [HIV] (principal)

== ENCOUNTER → 2017-11-22 | Outpatient (REF) | LOC: M SMT 13:49 | DX: Z00.00 Encounter for general adult medical examination without abnormal findings (principal) ==

== ENCOUNTER 2017-11-30 19:11 | Emergency (ER) | payer OTHER ==
[2017-11-30 20:04] LABS: BASO # 0.1 10^3/uL (0.0-0.2); BASO % 0.9 % (0.0-1.0); EOS # 0.8 10^3/uL (0.0-0.50); EOS % 6.7 % (0.0-3.0); HEMATOCRIT 38.7 % (36.0-47.0); IMMATURE GRANULOCYTE % 0.4 % (0-3.0); LYMPH # 1.2 10^3/uL (1.5-4.5); LYMPH % 9.8 % (24.0-44.0); MEAN CORPUSCULAR VOLUME 80.6 fl (80.0-96.0); MONO # 0.5 10^3/uL (0.0-0.8); MONO % 3.9 % (0.0-5.0); NEUTROPHILS # 9.8 10^3/uL (1.8-7.7); NEUTROPHILS % 78.3 % (36.0-66.0); PLATELET COUNT, AUTOMATED 264 10^3/uL (150-450); RED CELL DISTRIBUTION WIDTH 14.9 % (11.5-14.5); WHITE BLOOD COUNT 12.6 10^3/uL (4.0-10.0)
[2017-11-30] MEDS: NS 1,000 ML IV (20:34)
[2017-11-30] MEDS ORDERED: EMLA CREAM 5GM (LIDOCAINE/PRILOCAINE) As Ordered (20:37)
[2017-11-30] MEDS: ONDANSETRON 4MG/2ML VIAL (J2405) IV (20:45)
[2017-11-30] MEDS: ONDANSETRON 4 MG ORAL DISINTEGRATING TAB (Q0162 PER 1MG) PO (20:46)
[2017-11-30] MEDS: GASTROGRAFIN SOLUTION 30ML PO ×2 (21:13→21:31)
[2017-11-30 22:24] LABS: ALBUMIN 3.7 GM/DL (3.2-5.2); ALKALINE PHOSPHATASE 235 U/L (45-117); ALT/SGPT 25 U/L (12-78); ANION GAP 11 MEQ/L (8-16); AST/SGOT 30 U/L (7-37); BILIRUBIN,DIRECT < 0.1 MG/DL (0.0-0.2); BILIRUBIN,TOTAL 0.3 MG/DL (0.2-1.0); BLOOD UREA NITROGEN 21 MG/DL (7-18); CALCIUM LEVEL 9.5 MG/DL (8.8-10.2); CARBON DIOXIDE LEVEL 22 MEQ/L (21-32); CHLORIDE LEVEL 109 MEQ/L (98-107); CPK CREATINE PHOSPHOKINASE 103 U/L (26-192); CREATININE FOR GFR 1.45 MG/DL (0.55-1.30); GLOMERULAR FILTRATION RATE 39.2 (>45); GLUCOSE, FASTING 168 MG/DL (70-100); LIPASE 142 U/L (73-393); MB/CK RELATIVE INDEX 1.55 (< OR =4); POTASSIUM SERUM 4.4 MEQ/L (3.5-5.1); SODIUM LEVEL 142 MEQ/L (136-145); TOTAL PROTEIN 8.3 GM/DL (6.4-8.2); TROPONIN I 0.02 NG/ML (< 0.10)
== END 2017-12-01 00:52 | disposition home or self-care (01) ==
LOC: M ED 12-01 00:52
DX: K52.9 Noninfective gastroenteritis and colitis, unspecified (principal); E11.9 Type 2 diabetes mellitus without complications; I12.9 Hypertensive chronic kidney disease with stage 1 through stage 4 chronic kidney disease, or unspecified chronic kidney disease; J44.9 Chronic obstructive pulmonary disease, unspecified; N18.9 Chronic kidney disease, unspecified; E78.9 Disorder of lipoprotein metabolism, unspecified; M06.9 Rheumatoid arthritis, unspecified; R91.1 Solitary pulmonary nodule; M85.9 Disorder of bone density and structure, unspecified; K21.9 Gastro-esophageal reflux disease without esophagitis; G47.33 Obstructive sleep apnea (adult) (pediatric); Z88.0 Allergy status to penicillin; Z88.2 Allergy status to sulfonamides; Z88.5 Allergy status to narcotic agent; Z88.8 Allergy status to other drugs, medicaments and biological substances
CPT/HCPCS: Q9963

== ENCOUNTER → 2018-01-09 | Outpatient (REF) | payer OTHER ==
[2018-01-09 20:12] LABS: TOTAL PROTEIN,RANDOM URINE 395.2 MG/DL (0.0-12.0)
[2018-01-09 22:40] LABS: FREE T4 0.85 NG/DL (0.76-1.46); TOTAL PROTEIN 7.2 GM/DL (6.4-8.2)
[2018-01-11 13:46] LABS: ALBUMIN 3.66 GM/DL (3.29-5.55); ALBUMIN % 50.8 % (55.8-66.1); ALPHA-1-GLOBULIN % 5.1 % (2.9-4.9); ALPHA-1-GLOBULINS 0.37 GM/DL (0.17-0.41); ALPHA-2-GLOBULINS % 12.9 % (7.1-11.8); BETA-1-GLOBULINS % 7.9 % (4.7-7.2); BETA-2-GLOBULINS % 8.6 % (3.2-6.5); GAMMA GLOBULIN % 14.7 % (11.1-18.8)
[2018-01-11 13:47] LABS: ALPHA-2-GLOBULINS 0.93 GM/DL (0.42-0.99); BETA-1-GLOBULINS 0.57 GM/DL (0.28-0.60); BETA-2-GLOBULINS 0.62 GM/DL (0.19-0.55); GAMMA GLOBULINS 1.06 GM/DL (0.65-1.58)
[2018-01-11 15:21] LABS: URINE VOLUME RANDOM ML
[2018-01-11 15:22] LABS: UPEP INTERPRETATION NO M-SPIKE NOTED
[2018-01-12 00:56] LABS: FREE KAPPA LIGHT CHAINS SERUM 76.5 mg/L (3.3-19.4); FREE LAMBDA LIGHT CHAINS SERUM 40.7 mg/L (5.7-26.3); KAPPA/LAMBDA RATIO SERUM 1.88 (0.26-1.65)
== END ==
LOC: M LAB REF 17:05
DX: R80.9 Proteinuria, unspecified (principal); R61 Generalized hyperhidrosis; R05 Cough
CPT/HCPCS: 84165

== ENCOUNTER → 2018-01-16 | Outpatient (CLI) | payer OTHER | LOC: M RAD 15:24 | DX: R91.1 Solitary pulmonary nodule (principal); J98.4 Other disorders of lung; R61 Generalized hyperhidrosis | CPT/HCPCS: 71250 ==

== ENCOUNTER → 2018-03-08 | Outpatient (CLI) | payer OTHER ==
[~2018-03-08] MED LIST changes: +AMBI5TAB PO; -AMLO5TAB2 PO; +AMLO5TAB6 PO; +ASPI81CH32 PO; +ATOR1TAB21 PO; +BUPR1TAB52 PO; -CYCLOPENTOLATE 2% OPHTH SOLN 2ML BTL OS ONE; -FIRS1SOL3 PO; +FIRS50SO PO; +FOLI1TAB11 PO; -FOLI1TAB4 PO; +IPRA0.00 INH; -IPRASOL4 INH; +K-TA10TA2 PO; -LASI40TA PO; +LASI40TA9 PO; +LEFL1TAB4 PO; -LIDOCAINE 3.5 % 1ML OPHTH TOPICAL GEL OU ONE; +LOSA25TA14 PO; -LOSA25TA8 PO; +NORCOTAB PO; -OFLOXACIN 0.3 % (OCUFLOX) OPTH SOL 5ML OS ONE; -PHENYLEPHRINE 2.5% OPHTH SOL 2ML OS ONE; -PHENYLEPHRINE HCL 10 % OPHTH. SOL 5ML OS PRN; +PLAV1TAB2 PO; -TRAZ-136 PO; +TRAZ-163 PO; -TROPICAMIDE 1% OPHTH SOLN 2ML OS ONE; +VARE1TA PO; +ZOFR4TAB14 PO; -ZYLO300T4 PO; +ZYLO300T6 PO
--- NOTE | 2018-03-08 14:19 | REPMRS ---
Patient History The patient states she has not had a clinical breast exam in over a year. Patient is postmenopausal. Family history of colorectal cancer and ovarian cancer in sister, colorectal cancer in father. No Hormone Replacement Therapy Digital Woman Screen Mammo: March 08, 2018 - Exam #: [id number] Bilateral CC and MLO view(s) were taken. Technologist: Melba Flores, Technologist Prior study comparison: November 24, 2014, digital woman screen mammo performed at [facility] to [facility]. November 03, 2010, digital bilateral screening mammo performed at [facility]. February 09, 2006, bilateral screening mammogram performed at [facility]. FINDINGS: There are scattered fibroglandular densities. There has been no change in the appearance of the mammogram from the prior studies. There is a mild amount of scattered fibroglandular density which is fairly symmetric. There is no interval development of dominant mass, architectural distortion, or clustered microcalcification suggestive of malignancy. 3-D tomosynthesis shows no additional findings. Assessment: BI-RADS/ACR category 1 mammogram. Negative. Recommendation Routine screening mammogram of both breasts in 1 year (for women over age 40). This patient's Lifetime Breast Cancer RIsk is estimated at 4.9 %. This mammogram was interpreted with the aid of an FDA-approved computer-aided dectection system. Electronically Signed By: Zack Cohn MD 03/08/18 [id number]
== END ==
LOC: M WHC 12:45
PROVIDERS: ATTEND Family Medicine
DX: Z12.31 Encounter for screening mammogram for malignant neoplasm of breast (principal); Z78.0 Asymptomatic menopausal state; Z80.0 Family history of malignant neoplasm of digestive organs; Z80.41 Family history of malignant neoplasm of ovary

== ENCOUNTER → 2018-05-09 | Outpatient (REF) | payer OTHER | LOC: M LAB REF 17:05 | PROVIDERS: ATTEND Internal Medicine Nephrology | DX: R61 Generalized hyperhidrosis (principal); R05 Cough ==

== ENCOUNTER 2018-08-30 13:34 | Emergency (ER) | payer OTHER ==
[~2018-08-30] VITALS: Ht 157.5 cm; Wt 76.4 kg
[~2018-08-30 13:34] MED LIST changes: -/ADVA50050; -/ESOM40CA OR; -/MOXI40TA OR; +ADVA1AER2; -ASPI1TAB PO; -ASPI81CH32 PO; +ASPI81CH33 PO; +ASPI81TA26 PO; +AVEL1TAB2 OR; +HYDR-3715 PO; +NEXI1CAP3 OR; -NORCOTAB PO
[2018-08-30] MEDS ORDERED: HYDR200T3 PO (13:53)
[2018-08-30] MEDS ORDERED: DULO1CAP5 PO (13:53)
--- NOTE | 2018-08-30 14:16 | REP ---
Clinical: Trauma. Technique: AP, lateral, bilateral oblique views of the right ankle. Findings: Soft-tissue swelling. Nondisplaced transverse fracture of the distal fibular metaphysis. Nondisplaced fracture at the base of the fifth metatarsal bone. Remainder examination is grossly normal. Impression: Nondisplaced fractures of the distal fibular metaphysis and base of the fifth metatarsal bone. Soft tissue swelling. Electronically Signed by Jaxon Barnett MD 08/30/2018 02:07 P
--- NOTE | 2018-08-30 14:17 | REP ---
Clinical: Trauma. Fall. Technique: AP, lateral views of the right foot. Findings: There is a nondisplaced fracture at the base of the fifth metatarsal bone. Overlying soft tissue swelling is appreciated. A transverse nondisplaced fracture through the fifth toe proximal phalanx cannot be excluded. Impression: Fracture at the base of the fifth metatarsal bone with soft tissue swelling. Cannot exclude nondisplaced fracture of the fifth toe proximal phalanx. Electronically Signed by Jaxon Barnett MD 08/30/2018 02:08 P
[2018-08-30] MEDS ORDERED: NORC1TAB7 PO (14:22)
[2018-08-30] MEDS ORDERED: ROLLMIS8 XX (14:28)
[2018-08-30] MEDS ORDERED: PERCOCET 5MG/325MG TAB PO ONE (15:00)
[2018-08-30 15:30] VITALS: BP 155/75
== END 2018-08-30 15:50 | disposition home or self-care (01) ==
LOC: M ED 13:34 → EDBD 13:34 → M ED 15:50
DX: S82.831A Other fracture of upper and lower end of right fibula, initial encounter for closed fracture (principal); S92.354A Nondisplaced fracture of fifth metatarsal bone, right foot, initial encounter for closed fracture; W19.XXXA Unspecified fall, initial encounter; Y92.099 Unspecified place in other non-institutional residence as the place of occurrence of the external cause; Y93.9 Activity, unspecified; Y99.9 Unspecified external cause status; I51.9 Heart disease, unspecified; K21.9 Gastro-esophageal reflux disease without esophagitis; F03.90 Unspecified dementia, unspecified severity, without behavioral disturbance, psychotic disturbance, mood disturbance, and anxiety; Z79.82 Long term (current) use of aspirin; Z79.899 Other long term (current) drug therapy; Z88.0 Allergy status to penicillin; Z88.2 Allergy status to sulfonamides; Z88.5 Allergy status to narcotic agent; Z88.6 Allergy status to analgesic agent; Z88.8 Allergy status to other drugs, medicaments and biological substances

== ENCOUNTER → 2019-01-01 | Outpatient (REF) | payer OTHER ==
[~2019-01-01] MED LIST changes: +DULO1CAP5 PO; +NORC1TAB7 PO; +ROLLMIS8 XX
[2019-01-01 18:19] LABS: PERCENT SATURATION 28.6 % (13.2-45.0)
== END ==
LOC: M LAB REF 16:47
PROVIDERS: ATTEND Nurse Practitioner Family
DX: D50.9 Iron deficiency anemia, unspecified (principal)

== ENCOUNTER → 2019-02-06 | Outpatient (CLI) | payer OTHER ==
[~2019-02-06] MED LIST changes: -SIMV40TA2 PO; +SIMV40TA20 PO
[2019-02-06 13:10] LABS: HEMOGLOBIN A1c 8.9 %
[2019-02-06 13:35] LABS: ALBUMIN 2.7 GM/DL (3.2-5.2); BILIRUBIN,TOTAL 0.3 MG/DL (0.2-1.0); CALCIUM LEVEL 8.7 MG/DL (8.8-10.2); CHOLESTEROL RISK RATIO 2.655 (<5); CREATININE FOR GFR 1.42 MG/DL (0.55-1.30); GLOMERULAR FILTRATION RATE 39.9 (>45); POTASSIUM SERUM 4.4 MEQ/L (3.5-5.1); TOTAL PROTEIN 6.6 GM/DL (6.4-8.2)
[2019-02-06 14:15] LABS: MAU/CREAT RATIO 2812.5 MCG/MG (0.0-30.0)
[2019-02-07 13:03] LABS: TOTAL 25(OH) VITAMIN D 32.1 NG/ML (30.0-100.0)
== END ==
LOC: M WUC 10:28
PROVIDERS: ATTEND Family Medicine
DX: S92.354G Nondisplaced fracture of fifth metatarsal bone, right foot, subsequent encounter for fracture with delayed healing (principal); E55.9 Vitamin D deficiency, unspecified; E11.21 Type 2 diabetes mellitus with diabetic nephropathy; N18.3 Chronic kidney disease, stage 3 (moderate); H91.90 Unspecified hearing loss, unspecified ear; I12.9 Hypertensive chronic kidney disease with stage 1 through stage 4 chronic kidney disease, or unspecified chronic kidney disease

== ENCOUNTER → 2019-03-12 | Outpatient (REF) | payer OTHER ==
[~2019-03-12] MED LIST changes: -TRAZ-163 PO; +TRAZ-257 PO
[2019-03-12 20:23] LABS: PERCENT SATURATION 28.1 % (13.2-45.0)
== END ==
LOC: M LAB REF 17:09
PROVIDERS: ATTEND Nurse Practitioner Family
DX: D50.9 Iron deficiency anemia, unspecified (principal)

== ENCOUNTER → 2019-03-18 | Outpatient (REF) | payer OTHER ==
[2019-03-18 15:38] LABS: ALBUMIN 3.5 GM/DL (3.2-5.2); BILIRUBIN,DIRECT 0.1 MG/DL (0.0-0.2); BILIRUBIN,TOTAL 0.2 MG/DL (0.2-1.0); TOTAL PROTEIN 7.7 GM/DL (6.4-8.2)
== END ==
LOC: M SFHCPLAZ 13:24
PROVIDERS: ATTEND Family Medicine
DX: R10.13 Epigastric pain (principal)

== ENCOUNTER → 2019-04-08 | Outpatient (CLI) | payer OTHER ==
[2019-04-08 18:37] LABS: HEMOGLOBIN A1c 8.8 %
== END ==
LOC: M PLALAB 14:38
PROVIDERS: ATTEND Family Medicine
DX: E11.22 Type 2 diabetes mellitus with diabetic chronic kidney disease (principal)

== ENCOUNTER → 2019-04-13 | Outpatient (CLI) | payer OTHER ==
[2019-04-13 18:56] LABS: BASO # 0.1 10^3/uL (0.0-0.2); BASO % 0.8 % (0.0-1.0); EOS # 0.7 10^3/uL (0.0-0.5); EOS % 6.3 % (0.0-3.0); HEMATOCRIT 34.1 % (36.0-47.0); HEMOGLOBIN 9.9 g/dl (12.0-15.5); LYMPH # 2.1 10^3/uL (1.5-5.0); LYMPH % 19.3 % (24.0-44.0); MEAN CORPUSCULAR HEMOGLOBIN 24.3 pg (27.0-33.0); MEAN CORPUSCULAR VOLUME 83.6 fl (80.0-96.0); MONO # 0.7 10^3/uL (0.0-0.8); MONO % 6.3 % (0.0-5.0); NEUTROPHILS # 7.2 10^3/uL (1.5-8.5); NEUTROPHILS % 66.9 % (36.0-66.0); PLATELET COUNT, AUTOMATED 289 10^3/uL (150-450); RED BLOOD COUNT 4.08 10^6/uL (4.00-5.40); WHITE BLOOD COUNT 10.7 10^3/uL (4.0-10.0)
[2019-04-13 19:31] LABS: ERYTHROCYTE SEDIMENTATION RATE 41 mm/hr (0-30)
== END ==
LOC: M WUC 13:15
PROVIDERS: ATTEND Family Medicine
DX: R10.32 Left lower quadrant pain (principal)

== ENCOUNTER → 2019-05-09 | Outpatient (CLI) | payer OTHER ==
--- NOTE | 2019-05-10 08:28 | REP ---
BILATERAL SCREENING DIGITAL MAMMOGRAM WITH 3D TOMOSYNTHESIS: There are no palpable abnormalities or other breast complaints. The Tyrer-Cuzick Lifetime Breast Cancer Risk Score is: 4.7% . Comparison is 11/24/2014 There are scattered areas of fibroglandular density. There is no dominant mass, micro calcific cluster or architectural distortion that would indicate malignancy. There is a stable 7 mm nodule laterally in the right breast, unchanged, likely an intramammary lymph node. There are no additional findings on 3D tomosynthesiss. There is no change from the prior study. Impression: BIRADS/ACR category 1 mammogram. Negative. Recommendation: Routine annual screening mammography. This mammogram was interpreted with the aid of a FDA approved computer-aided detection system. A. Negative mammogram reports should not delay biopsy if a dominant or clinically suspicious mass is present. B. Not all breast cancers are identified by mammography or tomosynthesis. C. Adenosis and dense breasts may obscure an underlying neoplasm. Patient letter M1. Electronically Signed by Osmar Hall MD 05/10/2019 08:20 A
== END ==
LOC: M WHC 14:57
PROVIDERS: ATTEND Family Medicine
DX: Z12.31 Encounter for screening mammogram for malignant neoplasm of breast (principal)

== ENCOUNTER → 2019-07-19 | Outpatient (REF) | payer OTHER ==
[2019-07-23 21:13] LABS: HEMOGLOBIN A1c 7.5 %
== END ==
LOC: M LAB REF 16:42
PROVIDERS: ATTEND Nurse Practitioner Family
DX: E11.22 Type 2 diabetes mellitus with diabetic chronic kidney disease (principal)

== ENCOUNTER → 2019-08-09 | Outpatient (REF) | payer OTHER ==
[2019-08-09 15:29] LABS: BASO # 0.1 10^3/uL (0.0-0.2); BASO % 0.7 % (0.0-1.0); EOS % 0.1 % (0.0-3.0); HEMATOCRIT 34.8 % (36.0-47.0); HEMOGLOBIN 10.4 g/dl (12.0-15.5); LYMPH # 1.4 10^3/uL (1.5-5.0); LYMPH % 11.3 % (24.0-44.0); MEAN CORPUSCULAR HEMOGLOBIN 25.1 pg (27.0-33.0); MEAN CORPUSCULAR HGB CONC 29.9 g/dl (32.0-36.5); MEAN CORPUSCULAR VOLUME 84.1 fl (80.0-96.0); MONO # 0.6 10^3/uL (0.0-0.8); MONO % 4.8 % (0.0-5.0); NEUTROPHILS # 10.6 10^3/uL (1.5-8.5); NEUTROPHILS % 82.8 % (36.0-66.0); PLATELET COUNT, AUTOMATED 317 10^3/uL (150-450); RED BLOOD COUNT 4.14 10^6/uL (4.00-5.40); WHITE BLOOD COUNT 12.8 10^3/uL (4.0-10.0)
[2019-08-09 15:51] LABS: ALBUMIN 3.4 GM/DL (3.2-5.2); BILIRUBIN,TOTAL 0.3 MG/DL (0.2-1.0); CALCIUM LEVEL 8.7 MG/DL (8.8-10.2); CREATININE FOR GFR 1.98 MG/DL (0.55-1.30); GLOMERULAR FILTRATION RATE 27.2 (>45); POTASSIUM SERUM 3.8 MEQ/L (3.5-5.1); TOTAL PROTEIN 7.3 GM/DL (6.4-8.2)
[2019-08-09 16:00] LABS: HEMOGLOBIN A1c 7.1 %
== END ==
LOC: M SFHCPLAZ 13:58
PROVIDERS: ATTEND Family Medicine
DX: K04.7 Periapical abscess without sinus (principal); E11.21 Type 2 diabetes mellitus with diabetic nephropathy; N18.3 Chronic kidney disease, stage 3 (moderate); I10 Essential (primary) hypertension

== ENCOUNTER → 2019-11-21 | Outpatient (REF) | payer OTHER ==
[~2019-11-21] MED LIST changes: +AMLO1TAB24 PO; -AMLO5TAB6 PO; -ASPI81TA85 PO; +ASPI81TA86 PO
[2019-11-21 19:18] LABS: PERCENT SATURATION 18.5 % (13.2-45.0)
== END ==
LOC: M LAB REF 17:27
PROVIDERS: ATTEND Internal Medicine Nephrology
DX: N18.9 Chronic kidney disease, unspecified (principal); D63.1 Anemia in chronic kidney disease

== ENCOUNTER → 2020-04-02 | Outpatient (REF) | payer OTHER ==
[2020-04-02 18:24] LABS: HEMATOCRIT 33.1 % (36.0-47.0); HEMOGLOBIN 9.6 g/dl (12.0-15.5); MEAN CORPUSCULAR VOLUME 82.8 fl (80.0-96.0); PLATELET COUNT, AUTOMATED 281 10^3/uL (150-450); WHITE BLOOD COUNT 13.4 10^3/uL (4.0-10.0)
[2020-04-02 18:41] LABS: ALBUMIN 3.6 GM/DL (3.2-5.2); BILIRUBIN,TOTAL 0.1 MG/DL (0.2-1.0); CALCIUM LEVEL 9.3 MG/DL (8.8-10.2); CHOLESTEROL RISK RATIO 2.614 (<5); CREATININE FOR GFR 1.96 MG/DL (0.55-1.30); GLOMERULAR FILTRATION RATE 27.4 (>45); POTASSIUM SERUM 5.3 MEQ/L (3.5-5.1); TOTAL PROTEIN 7.2 GM/DL (6.4-8.2)
[2020-04-02 18:43] LABS: HEMOGLOBIN A1c 6.8 %
[2020-04-02 18:47] LABS: TOTAL 25(OH) VITAMIN D 24.9 NG/ML (30.0-100.0)
== END ==
LOC: M SFHCPLAZ 15:01
PROVIDERS: ATTEND Family Medicine
DX: N18.30 Chronic kidney disease, stage 3 unspecified (principal); I10 Essential (primary) hypertension; J44.9 Chronic obstructive pulmonary disease, unspecified; E78.2 Mixed hyperlipidemia; E11.21 Type 2 diabetes mellitus with diabetic nephropathy; M81.8 Other osteoporosis without current pathological fracture; E55.9 Vitamin D deficiency, unspecified

== ENCOUNTER → 2020-05-11 | Outpatient (REF) | payer OTHER ==
[2020-05-11 17:35] LABS: BASO # 0.1 10^3/uL (0.0-0.2); BASO % 0.7 % (0.0-1.0); EOS # 0.6 10^3/uL (0.0-0.5); EOS % 5.1 % (0.0-3.0); HEMATOCRIT 32.8 % (36.0-47.0); HEMOGLOBIN 9.5 g/dl (12.0-15.5); LYMPH # 2.4 10^3/uL (1.5-5.0); LYMPH % 18.8 % (24.0-44.0); MEAN CORPUSCULAR HEMOGLOBIN 24.1 pg (27.0-33.0); MEAN CORPUSCULAR VOLUME 83.2 fl (80.0-96.0); MONO % 7.6 % (2.0-8.0); NEUTROPHILS # 8.5 10^3/uL (1.5-8.5); NEUTROPHILS % 67.6 % (36.0-66.0); PLATELET COUNT, AUTOMATED 263 10^3/uL (150-450); RED BLOOD COUNT 3.94 10^6/uL (4.00-5.40); WHITE BLOOD COUNT 12.6 10^3/uL (4.0-10.0)
[2020-05-11 18:10] LABS: CALCIUM LEVEL 9.1 MG/DL (8.8-10.2); CREATININE FOR GFR 2.32 MG/DL (0.55-1.30); GLOMERULAR FILTRATION RATE 22.6 (>45)
[2020-05-11 18:13] LABS: ALBUMIN 3.3 GM/DL (3.2-5.2); BILIRUBIN,TOTAL 0.2 MG/DL (0.2-1.0); CALCIUM LEVEL 9.3 MG/DL (8.8-10.2); CREATININE FOR GFR 2.29 MG/DL (0.55-1.30); GLOMERULAR FILTRATION RATE 22.9 (>45); TOTAL PROTEIN 6.8 GM/DL (6.4-8.2)
== END ==
LOC: M SFHCPLAZ 14:21
PROVIDERS: ATTEND Family Medicine
DX: E87.5 Hyperkalemia (principal)

== ENCOUNTER → 2020-05-21 | Outpatient (REF) | payer OTHER | LOC: M SFHCRHEU 15:02 | PROVIDERS: ATTEND Internal Medicine | DX: M06.9 Rheumatoid arthritis, unspecified (principal); L65.9 Nonscarring hair loss, unspecified; R68.2 Dry mouth, unspecified; Z87.59 Personal history of other complications of pregnancy, childbirth and the puerperium ==

== ENCOUNTER → 2020-05-22 | Outpatient (CLI) | payer OTHER ==
[2020-05-22 18:28] LABS: BASO # 0.1 10^3/uL (0.0-0.2); BASO % 0.7 % (0.0-1.0); EOS # 0.5 10^3/uL (0.0-0.5); EOS % 4.4 % (0.0-3.0); HEMATOCRIT 33.7 % (36.0-47.0); HEMOGLOBIN 9.9 g/dl (12.0-15.5); LYMPH # 1.5 10^3/uL (1.5-5.0); LYMPH % 12.9 % (24.0-44.0); MEAN CORPUSCULAR HEMOGLOBIN 24.2 pg (27.0-33.0); MEAN CORPUSCULAR HGB CONC 29.4 g/dl (32.0-36.5); MEAN CORPUSCULAR VOLUME 82.4 fl (80.0-96.0); MONO # 0.7 10^3/uL (0.0-0.8); MONO % 5.7 % (2.0-8.0); NEUTROPHILS # 8.9 10^3/uL (1.5-8.5); NEUTROPHILS % 75.9 % (36.0-66.0); PLATELET COUNT, AUTOMATED 289 10^3/uL (150-450); RED BLOOD COUNT 4.09 10^6/uL (4.00-5.40); WHITE BLOOD COUNT 11.8 10^3/uL (4.0-10.0)
[2020-05-22 19:03] LABS: ALBUMIN 3.6 GM/DL (3.2-5.2); ALT/SGPT 25 U/L (12-78); BILIRUBIN,DIRECT < 0.1 MG/DL (0.0-0.2); BILIRUBIN,TOTAL 0.2 MG/DL (0.2-1.0); BLOOD UREA NITROGEN 32 MG/DL (7-18); CALCIUM LEVEL 8.9 MG/DL (8.8-10.2); CARBON DIOXIDE LEVEL 24 MEQ/L (21-32); CHLORIDE LEVEL 110 MEQ/L (98-107); CREATININE FOR GFR 1.89 MG/DL (0.55-1.30); GLOMERULAR FILTRATION RATE 28.6 (>45); GLUCOSE, FASTING 163 MG/DL (70-100); IMMUNOGLOBULIN G 1070 MG/DL (681-1648); IMMUNOGLOBULIN M 77.8 MG/DL (40-230); POTASSIUM SERUM 4.3 MEQ/L (3.5-5.1); RHEUMATOID FACTOR QUANT 59.7 IU/ML (<15.0); SODIUM LEVEL 140 MEQ/L (136-145); TOTAL PROTEIN 7.4 GM/DL (6.4-8.2)
[2020-05-22 19:34] LABS: ERYTHROCYTE SEDIMENTATION RATE 64 mm/hr (0-30)
[2020-05-26 16:08] LABS: ANA (HEP2) Positive (.); BETA-2 GLYCOPROTEIN I ABY IGA <9 (0-25); BETA-2 GLYCOPROTEIN I ABY IGG <9 (0-20); BETA-2 GLYCOPROTEIN I ABY IGM <9 (0-32); CARDIOLIPIN IGA ANTIBODY <9 APL U/mL (0-11); CARDIOLIPIN IGG ANTIBODY <9 GPL U/mL (0-14); CARDIOLIPIN IGM ANTIBODY <9 MPL U/mL (0-12); CYCLIC CITRULLINATED PEPTIDE > 250 units (0-19); SSA SJOGRENS A <0.2 AI (0.0-0.9); SSB SJOGRENS B <0.2 AI (0.0-0.9)
== END ==
LOC: M PLALAB 14:32
PROVIDERS: ATTEND Internal Medicine
DX: M06.9 Rheumatoid arthritis, unspecified (principal); R68.2 Dry mouth, unspecified; L65.9 Nonscarring hair loss, unspecified; Z87.59 Personal history of other complications of pregnancy, childbirth and the puerperium
CPT/HCPCS: 36415; 80048; 80076; 82784; 84165; 85025; 85652; 85730; 86038; 86140; 86146; 86147; 86200; 86235; 86431; G0480

== ENCOUNTER → 2020-05-26 | Outpatient (REF) | payer OTHER ==
[2020-05-26 18:25] LABS: PERCENT SATURATION 24.7 % (13.2-45.0); TOTAL PROTEIN 6.7 GM/DL (6.4-8.2)
== END ==
LOC: M LAB REF 16:52
PROVIDERS: ATTEND Internal Medicine Nephrology
DX: N18.32 Chronic kidney disease, stage 3b (principal); R80.9 Proteinuria, unspecified; D63.1 Anemia in chronic kidney disease

== ENCOUNTER → 2020-06-22 | Outpatient (CLI) | payer OTHER ==
--- NOTE | 2020-06-22 16:02 | REP ---
INDICATION: RHEUMATOID ARTHRITIS. COMPARISON: Comparison radiographs of the bilateral foot are from June 23, 2006.. Comparison right foot radiographs August 30, 2018. TECHNIQUE: Bilateral foot series, total of 8 views, 4 on each side. FINDINGS: Four views of the the right foot demonstrate diffuse osteopenia. There is Achilles and plantar calcaneal spurring. Joint spaces are preserved. No erosive changes seen. There is evidence of healed proximal 5th metatarsal fracture.. Four views of the left foot show diffuse osteopenia. Joint spaces are preserved. There is a moderate hallux valgus on the left. Mild osteoarthritis is seen at the 1st MTP joint on the left. There is minimal Achilles calcaneal spurring on the left. No fracture or acute erosive changes seen. No opaque foreign body noted. IMPRESSION: Diffuse osteopenia. Hallux valgus on the left. Old healed fracture proximal 5th metatarsal on the right. Heel spurs bilaterally.. <Electronically signed by Zack Cohn > 06/22/20 [id number]
--- NOTE | 2020-06-22 16:07 | REP ---
INDICATION: RHEUMATOID ARTHRITIS. COMPARISON: None TECHNIQUE: Four views each hand FINDINGS: Right hand: There is asymmetric intra digital joint space narrowing particularly affecting the DIP joints of digits 2 and 3 and the interphalangeal joint of digit 1. There is mild marginal osteophytosis throughout the DIP joints and the interphalangeal joint of digit 1. There is mild medial subluxation of the DIP joint of the 2nd digit. There may be mild periarticular osteopenia. There are no marginal erosions. There is no acute fracture. Left hand: There is moderate asymmetric intra digital joint space narrowing affecting the DIP joints of all digits particularly the 2nd and 3rd digits is seen with minimal marginal osteophyte formation. There are no marginal erosions. There may be mild periarticular osteopenia. There is very subtle subluxation medially of the DIP joint of the 2nd digit and laterally of the DIP joint of the 3rd digit there is no acute fracture dislocation. IMPRESSION: Chronic changes bilaterally as described above. <Electronically signed by Ankush Parks > 06/22/20 [id number]
--- NOTE | 2020-06-22 16:10 | REP ---
INDICATION: RHEUMATOID ARTHRITIS. COMPARISON: Left wrist only 06/17/2006 TECHNIQUE: There is no evidence of an acute fracture or destructive osseous lesion. The mortise is within normal limits FINDINGS: Left wrist: Unicameral cyst is again seen in the distal pole the scaphoid. This is unchanged. There is no abnormal radiocarpal joint space narrowing. There is no abnormal distal radioulnar joint space narrowing. There is no fracture, dislocation, or subluxation. Right wrist: There is no fracture, dislocation, subluxation. No abnormal radiocarpal or distal radioulnar joint space narrowing is evident. IMPRESSION: Chronic changes left wrist as described above. <Electronically signed by Ankush Parks > 06/22/20 [id number]
== END ==
LOC: M WUC 14:39
PROVIDERS: ATTEND Internal Medicine
DX: M06.9 Rheumatoid arthritis, unspecified (principal); M85.871 Other specified disorders of bone density and structure, right ankle and foot; M85.872 Other specified disorders of bone density and structure, left ankle and foot; M77.31 Calcaneal spur, right foot; M77.32 Calcaneal spur, left foot; M20.12 Hallux valgus (acquired), left foot; M19.072 Primary osteoarthritis, left ankle and foot; M85.412 Solitary bone cyst, left shoulder

== ENCOUNTER → 2020-06-30 | Outpatient (CLI) | payer OTHER ==
[2020-06-30 18:34] LABS: CALCIUM LEVEL 9.2 MG/DL (8.8-10.2); CREATININE FOR GFR 1.74 MG/DL (0.55-1.30); GLOMERULAR FILTRATION RATE 31.5 (>45); POTASSIUM SERUM 4.6 MEQ/L (3.5-5.1)
== END ==
LOC: M PLALAB 14:35
PROVIDERS: ATTEND Internal Medicine
DX: R76.8 Other specified abnormal immunological findings in serum (principal)

== ENCOUNTER → 2020-07-02 | Outpatient (REF) | payer OTHER ==
[2020-07-02 18:15] LABS: TOTAL PROTEIN 6.8 GM/DL (6.4-8.2)
[2020-07-04 18:10] LABS: FREE KAPPA LIGHT CHAINS SERUM 120.1 mg/L (3.3-19.4); FREE LAMBDA LIGHT CHAINS SERUM 47.2 mg/L (5.7-26.3); KAPPA/LAMBDA RATIO SERUM 2.54 (0.26-1.65)
[2020-07-06 13:53] LABS: ALBUMIN % 52.1 % (55.8-66.1); ALPHA-1-GLOBULIN % 5.8 % (2.9-4.9); ALPHA-2-GLOBULINS % 13.2 % (7.1-11.8)
[2020-07-06 13:54] LABS: ALBUMIN 3.54 GM/DL (3.29-5.55); ALPHA-1-GLOBULINS 0.39 GM/DL (0.17-0.41); BETA-1-GLOBULINS 0.51 GM/DL (0.28-0.60); BETA-1-GLOBULINS % 7.5 % (4.7-7.2); BETA-2-GLOBULINS 0.54 GM/DL (0.19-0.55); BETA-2-GLOBULINS % 7.9 % (3.2-6.5); GAMMA GLOBULIN % 13.5 % (11.1-18.8); GAMMA GLOBULINS 0.92 GM/DL (0.65-1.58)
== END ==
LOC: M LAB REF 16:47
PROVIDERS: ATTEND Internal Medicine Nephrology
DX: R80.9 Proteinuria, unspecified (principal); N18.32 Chronic kidney disease, stage 3b

== ENCOUNTER → 2020-07-23 | Outpatient (REF) | payer OTHER ==
[2020-07-23 15:14] LABS: HEMATOCRIT 30.4 % (36.0-47.0); HEMOGLOBIN 8.7 g/dl (12.0-15.5); MEAN CORPUSCULAR HEMOGLOBIN 23.7 pg (27.0-33.0); MEAN CORPUSCULAR HGB CONC 28.6 g/dl (32.0-36.5); MEAN CORPUSCULAR VOLUME 82.8 fl (80.0-96.0); PLATELET COUNT, AUTOMATED 269 10^3/uL (150-450); RED BLOOD COUNT 3.67 10^6/uL (4.00-5.40); WHITE BLOOD COUNT 11.1 10^3/uL (4.0-10.0)
[2020-07-23 15:20] LABS: CALCIUM LEVEL 8.8 MG/DL (8.8-10.2); CREATININE FOR GFR 1.97 MG/DL (0.55-1.30); GLOMERULAR FILTRATION RATE 27.3 (>45); POTASSIUM SERUM 4.5 MEQ/L (3.5-5.1)
[2020-07-23 15:33] LABS: HEMOGLOBIN A1c 6.7 %
== END ==
LOC: M PLALAB 12:09
PROVIDERS: ATTEND Family Medicine
DX: E11.22 Type 2 diabetes mellitus with diabetic chronic kidney disease (principal); I10 Essential (primary) hypertension; E55.9 Vitamin D deficiency, unspecified

== ENCOUNTER → 2020-09-28 | Outpatient (REF) | payer OTHER ==
[~2020-09-28] MED LIST changes: +DONE-1 PO; -DONETAB6 PO; +GLIM2TAB4 PO; +LOSA25TA13 PO; -LOSA25TA14 PO; +SPIR-10 PO
[2020-09-28 19:20] LABS: MAGNESIUM LEVEL 2.1 MG/DL (1.8-2.4); PERCENT SATURATION 21.5 % (13.2-45.0)
== END ==
LOC: M LAB REF 18:22
PROVIDERS: ATTEND Internal Medicine Nephrology
DX: N18.32 Chronic kidney disease, stage 3b (principal); E83.42 Hypomagnesemia; D63.1 Anemia in chronic kidney disease

== ENCOUNTER → 2020-09-30 | Outpatient (CLI) | payer OTHER ==
[~2020-09-30] MED LIST changes: -DONE-1 PO; +DONETAB6 PO; -GLIM2TAB4 PO; -LOSA25TA13 PO; +LOSA25TA14 PO; -SPIR-10 PO
[2020-09-30 18:56] LABS: PERCENT SATURATION 18.9 % (13.2-45.0)
[2020-09-30 19:05] LABS: HEMATOCRIT 31.5 % (36.0-47.0); HEMOGLOBIN 9.7 g/dl (12.0-15.5); MEAN CORPUSCULAR HGB CONC 30.8 g/dl (32.0-36.5); MEAN CORPUSCULAR VOLUME 77.8 fl (80.0-96.0); PLATELET COUNT, AUTOMATED 265 10^3/uL (150-450); RED BLOOD COUNT 4.05 10^6/uL (4.00-5.40); WHITE BLOOD COUNT 13.4 10^3/uL (4.0-10.0)
== END ==
LOC: M PLALAB 14:29
PROVIDERS: ATTEND Family Medicine
DX: D64.9 Anemia, unspecified (principal)

== ENCOUNTER 2020-10-09 09:23 | Outpatient (CLI) | payer OTHER ==
[~2020-10-09] VITALS: Ht 160 cm; Wt 69.8 kg
[~2020-10-09 09:23] MED LIST changes: +ALBUTEROL SULFATE 2.5 MG/0.5 ML INH NEB SOLN INH PRN; +EPINEPHrine INJ 1 MG/ML 1ML AMP IM PRN; +diphenhydrAMINE 50MG/ML VIAL (J1200) IV PRN; +methylPREDNISolone 125MG 2ML VIAL IV PRN
[2020-10-09 09:30] VITALS: BP 181/85
[2020-10-09] MEDS ORDERED: FERRIC CARBOXYMALTOSE INJ 750 MG, VIAL MATE ADAPTER 1 EACH in NS 250 ML IV ONE (09:30)
[2020-10-09] MEDS ORDERED: NS 1,000 ML IV SCH (09:30)
[2020-10-09] MEDS ORDERED: GLIM2TAB4 PO (09:48)
[2020-10-09] MEDS ORDERED: SPIR-10 PO (09:48)
[2020-10-09 10:15] VITALS: BP 134/67
[2020-10-09 11:15] VITALS: BP 143/68
[2020-10-09 12:15] VITALS: BP 137/70
[2020-10-09 12:56] VITALS: BP 145/66
== END 2020-10-09 13:00 | disposition home or self-care (01) ==
LOC: M INFU 09:23
PROVIDERS: ATTEND Internal Medicine Nephrology
DX: N18.30 Chronic kidney disease, stage 3 unspecified (principal); D63.1 Anemia in chronic kidney disease
CPT/HCPCS: 96365; 96366; J1439

== ENCOUNTER → 2020-10-12 | Outpatient (CLI) | payer OTHER ==
[~2020-10-12] MED LIST changes: -ALBUTEROL SULFATE 2.5 MG/0.5 ML INH NEB SOLN INH PRN; -EPINEPHrine INJ 1 MG/ML 1ML AMP IM PRN; +GLIM2TAB4 PO; +SPIR-10 PO; -diphenhydrAMINE 50MG/ML VIAL (J1200) IV PRN; -methylPREDNISolone 125MG 2ML VIAL IV PRN
--- NOTE | 2020-10-12 14:47 | REP ---
INDICATION: CKD STAGE 3B, RETENSION OF URINE. COMPARISON: 04/18/2017 TECHNIQUE: Real-time sonographic transvesical examination of the urinary bladder with pre and postvoid urinary bladder volume calculations FINDINGS: The maximal urinary bladder wall thickness is 5 mm. The pre void urinary bladder volume calculation is 208.3 cc and the postvoid urinary bladder volume calculation is 21.4 cc. This renders a 6.9% postvoid residual. No gross masses are identified. IMPRESSION: As above <Electronically signed by Ankush Parks > 10/12/20 2111
--- NOTE | 2020-10-12 14:49 | REP ---
INDICATION: CKD STAGE 3B, RETENSION OF URINE. COMPARISON: 09/08/2010 TECHNIQUE: Real-time sonographic evaluation of the kidneys FINDINGS: Multiple ultrasonographic images of the right kidney show the right kidney to measure 10 x 5.1 x 5.5 cm. The renal cortical echotexture is unremarkable. There are no masses. There is good corticomedullary differentiation. There is no hydronephrosis. There are no perinephric fluid collections. Multiple ultrasonographic images of the left kidney show the left kidney to measure 9.4 x 4.7 x 4.8 cm. The renal cortical echotexture is mildly diffusely increased. There are no masses. There is good corticomedullary differentiation. There is no hydronephrosis. There are no perinephric fluid collections. IMPRESSION: The left renal cortical echoes are mildly diffusely increased. There is represents a change compared to the prior exam. Early unilateral medical renal disease cannot be ruled out. <Electronically signed by Ankush Parks > 10/12/20 [id number]
== END ==
LOC: M RAD 13:04
PROVIDERS: ATTEND Internal Medicine Nephrology
DX: N18.32 Chronic kidney disease, stage 3b (principal); R33.9 Retention of urine, unspecified

== ENCOUNTER → 2020-12-07 | Outpatient (CLI) | payer OTHER ==
[2020-12-07 16:42] LABS: HEMOGLOBIN A1c 7.6 %
== END ==
LOC: M PLALAB 10:03
PROVIDERS: ATTEND Family Medicine
DX: E11.21 Type 2 diabetes mellitus with diabetic nephropathy (principal)

== ENCOUNTER → 2020-12-07 | Outpatient (CLI) | payer OTHER ==
[2020-12-07 14:04] LABS: BASO # 0.1 10^3/uL (0.0-0.2); BASO % 0.7 % (0.0-1.0); EOS # 0.4 10^3/uL (0.0-0.5); EOS % 3.7 % (0.0-3.0); HEMATOCRIT 31.1 % (36.0-47.0); HEMOGLOBIN 9.2 g/dl (12.0-15.5); LYMPH # 2.5 10^3/uL (1.5-5.0); LYMPH % 26.3 % (24.0-44.0); MEAN CORPUSCULAR HEMOGLOBIN 23.8 pg (27.0-33.0); MEAN CORPUSCULAR HGB CONC 29.6 g/dl (32.0-36.5); MEAN CORPUSCULAR VOLUME 80.4 fl (80.0-96.0); MONO # 0.8 10^3/uL (0.0-0.8); MONO % 7.9 % (2.0-8.0); NEUTROPHILS # 5.8 10^3/uL (1.5-8.5); NEUTROPHILS % 60.9 % (36.0-66.0); PLATELET COUNT, AUTOMATED 212 10^3/uL (150-450); RED BLOOD COUNT 3.87 10^6/uL (4.00-5.40); WHITE BLOOD COUNT 9.5 10^3/uL (4.0-10.0)
[2020-12-07 14:55] LABS: ALT/SGPT 30 U/L (12-78); BILIRUBIN,DIRECT < 0.1 MG/DL (0.0-0.2); BILIRUBIN,TOTAL 0.3 MG/DL (0.2-1.0); BLOOD UREA NITROGEN 31 MG/DL (7-18); CALCIUM LEVEL 8.8 MG/DL (8.8-10.2); CARBON DIOXIDE LEVEL 24 MEQ/L (21-32); CHLORIDE LEVEL 114 MEQ/L (98-107); CREATININE FOR GFR 2.04 MG/DL (0.55-1.30); GLOMERULAR FILTRATION RATE 26.1 (>45); GLUCOSE, FASTING 138 MG/DL (70-100); POTASSIUM SERUM 4.4 MEQ/L (3.5-5.1); SODIUM LEVEL 144 MEQ/L (136-145); TOTAL PROTEIN 6.6 GM/DL (6.4-8.2)
[2020-12-07 15:17] LABS: ERYTHROCYTE SEDIMENTATION RATE 58 mm/hr (0-30)
== END ==
LOC: M PLALAB 10:01
PROVIDERS: ATTEND Internal Medicine
DX: M06.9 Rheumatoid arthritis, unspecified (principal)

== ENCOUNTER → 2020-12-08 | Outpatient (REF) | payer OTHER | LOC: M LAB REF 17:08 | PROVIDERS: ATTEND Internal Medicine Nephrology | DX: E83.42 Hypomagnesemia (principal) ==

== ENCOUNTER → 2020-12-18 | Outpatient (REF) | payer OTHER | LOC: M LAB REF 12:14 | PROVIDERS: ATTEND Physician Assistant Medical | DX: S31.502A Unspecified open wound of unspecified external genital organs, female, initial encounter (principal) ==

== ENCOUNTER → 2021-02-06 | Outpatient (CLI) | payer OTHER ==
--- NOTE | 2021-02-08 19:16 | SLEEPCENT ---
DATE: 02/06/2021 ORDERED BY: Noel Vences DO, [facility] Nocturnal polysomnography was performed for the titration of pressure therapy in this patient with a history of obstructive sleep apnea. He has lost substantial weight. For testing, a ResMed AirTouch F20 full face mask of medium size was used, 6 cm of water pressure were applied to the circuit and the lights were extinguished. Eight hours and 35 minutes of data were reviewed. There were 356 minutes of sleep identified. Sleep latency was mildly prolonged at 38 minutes, REM latency likewise at 173 minutes. Sleep architecture improved and on optimal pressure therapy three REM cycles were appreciated. Overall sleep efficiency was 69.6%. The electrocardiogram showed a sinus rhythm with an average heart rate of 56 beats per minute. EEG showed normal waveforms for wake and sleep. Respiratory events were best palliated with CPAP at a pressure of +8 and remaining measures of sleep physiology were normal. IMPRESSION: Obstructive sleep apnea syndrome (G47.33). RECOMMENDATION: Nightly use of pressure therapy 8 cm of water. cc: YESSY ROMERO MD
== END ==
LOC: M SLEEP 20:00
PROVIDERS: ATTEND Internal Medicine Pulmonary Disease
DX: G47.33 Obstructive sleep apnea (adult) (pediatric) (principal)

== ENCOUNTER → 2021-03-26 | Outpatient (CLI) | payer OTHER ==
[~2021-03-26] MED LIST changes: +DONE-1 PO; -DONETAB6 PO; +LOSA25TA13 PO; -LOSA25TA14 PO
== END ==
LOC: M RAD 11:05
PROVIDERS: ATTEND Family Medicine
DX: Z12.2 Encounter for screening for malignant neoplasm of respiratory organs (principal); R91.8 Other nonspecific abnormal finding of lung field; I70.0 Atherosclerosis of aorta; J98.4 Other disorders of lung; I25.10 Atherosclerotic heart disease of native coronary artery without angina pectoris; Z87.891 Personal history of nicotine dependence

== ENCOUNTER → 2021-04-29 | Outpatient (REF) | payer OTHER ==
[2021-04-29 15:29] LABS: PERCENT SATURATION 31.6 % (13.2-45.0)
== END ==
LOC: M LAB REF 13:05
PROVIDERS: ATTEND Internal Medicine Nephrology
DX: N18.4 Chronic kidney disease, stage 4 (severe) (principal)

== ENCOUNTER → 2021-05-21 | Outpatient (CLI) | payer OTHER ==
[2021-05-21 13:28] LABS: HEMATOCRIT 33.2 % (36.0-47.0); HEMOGLOBIN 9.9 g/dl (12.0-15.5); MEAN CORPUSCULAR HEMOGLOBIN 23.5 pg (27.0-33.0); MEAN CORPUSCULAR HGB CONC 29.8 g/dl (32.0-36.5); MEAN CORPUSCULAR VOLUME 78.7 fl (80.0-96.0); PLATELET COUNT, AUTOMATED 247 10^3/uL (150-450); RED BLOOD COUNT 4.22 10^6/uL (4.00-5.40); WHITE BLOOD COUNT 10.6 10^3/uL (4.0-10.0)
[2021-05-21 13:41] LABS: HEMOGLOBIN A1c 8.9 %
[2021-05-21 13:57] LABS: ALBUMIN 3.1 GM/DL (3.2-5.2); BILIRUBIN,TOTAL 0.3 MG/DL (0.2-1.0); CALCIUM LEVEL 8.4 MG/DL (8.8-10.2); CHOLESTEROL RISK RATIO 2.431 (<5); CREATININE FOR GFR 2.18 MG/DL (0.55-1.30); GLOMERULAR FILTRATION RATE 24.2 (>45); PERCENT SATURATION 20.5 % (13.2-45.0); POTASSIUM SERUM 4.8 MEQ/L (3.5-5.1); TOTAL PROTEIN 6.4 GM/DL (6.4-8.2)
[2021-05-21 14:22] LABS: TOTAL 25(OH) VITAMIN D 34.2 NG/ML (30.0-100.0)
[2021-05-21 14:28] LABS: MAU/CREAT RATIO 530.1 MCG/MG (0.0-30.0)
== END ==
LOC: M PLALAB 10:41
PROVIDERS: ATTEND Family Medicine
DX: E11.21 Type 2 diabetes mellitus with diabetic nephropathy (principal)

== ENCOUNTER → 2021-05-21 | Outpatient (CLI) | payer OTHER ==
[2021-05-21 13:26] LABS: BASO # 0.1 10^3/uL (0.0-0.2); BASO % 0.8 % (0.0-1.0); EOS % 0.1 % (0.0-3.0); HEMOGLOBIN 9.9 g/dl (12.0-15.5); LYMPH % 28.9 % (24.0-44.0); MEAN CORPUSCULAR HEMOGLOBIN 23.1 pg (27.0-33.0); MEAN CORPUSCULAR HGB CONC 29.1 g/dl (32.0-36.5); MEAN CORPUSCULAR VOLUME 79.3 fl (80.0-96.0); MONO # 0.8 10^3/uL (0.0-0.8); MONO % 7.6 % (2.0-8.0); NEUTROPHILS # 6.4 10^3/uL (1.5-8.5); NEUTROPHILS % 62.3 % (36.0-66.0); PLATELET COUNT, AUTOMATED 269 10^3/uL (150-450); RED BLOOD COUNT 4.29 10^6/uL (4.00-5.40); WHITE BLOOD COUNT 10.3 10^3/uL (4.0-10.0)
[2021-05-21 13:59] LABS: ALBUMIN 3.3 GM/DL (3.2-5.2); ALT/SGPT 30 U/L (12-78); BILIRUBIN,DIRECT < 0.1 MG/DL (0.0-0.2); BILIRUBIN,TOTAL 0.2 MG/DL (0.2-1.0); BLOOD UREA NITROGEN 35 MG/DL (7-18); CALCIUM LEVEL 8.8 MG/DL (8.8-10.2); CARBON DIOXIDE LEVEL 24 MEQ/L (21-32); CHLORIDE LEVEL 114 MEQ/L (98-107); CREATININE FOR GFR 2.16 MG/DL (0.55-1.30); GLOMERULAR FILTRATION RATE 24.4 (>45); GLUCOSE, FASTING 162 MG/DL (70-100); POTASSIUM SERUM 4.7 MEQ/L (3.5-5.1); SODIUM LEVEL 144 MEQ/L (136-145); TOTAL PROTEIN 6.5 GM/DL (6.4-8.2)
[2021-05-21 14:09] LABS: ERYTHROCYTE SEDIMENTATION RATE 49 mm/hr (0-30)
== END ==
LOC: M PLALAB 10:43
PROVIDERS: ATTEND Internal Medicine
DX: M06.9 Rheumatoid arthritis, unspecified (principal)

== ENCOUNTER → 2021-07-21 | Outpatient (CLI) | payer OTHER | LOC: M WHC 11:13 | PROVIDERS: ATTEND Family Medicine | DX: Z12.31 Encounter for screening mammogram for malignant neoplasm of breast (principal) ==

== ENCOUNTER → 2021-09-22 | Outpatient (CLI) | payer OTHER ==
[2021-09-22 15:22] LABS: BASO # 0.1 10^3/uL (0.0-0.2); BASO % 0.6 % (0.0-1.0); EOS # 0.1 10^3/uL (0.0-0.5); EOS % 1.3 % (0.0-3.0); HEMATOCRIT 35.4 % (36.0-47.0); HEMOGLOBIN 10.5 g/dl (12.0-15.5); LYMPH % 18.4 % (24.0-44.0); MEAN CORPUSCULAR HGB CONC 29.7 g/dl (32.0-36.5); MONO # 0.7 10^3/uL (0.0-0.8); MONO % 6.7 % (2.0-8.0); NEUTROPHILS # 7.9 10^3/uL (1.5-8.5); NEUTROPHILS % 72.5 % (36.0-66.0); PLATELET COUNT, AUTOMATED 276 10^3/uL (150-450); RED BLOOD COUNT 4.37 10^6/uL (4.00-5.40); WHITE BLOOD COUNT 10.9 10^3/uL (4.0-10.0)
[2021-09-22 15:51] LABS: ERYTHROCYTE SEDIMENTATION RATE 49 mm/hr (0-30)
[2021-09-22 16:14] LABS: ALBUMIN 3.7 GM/DL (3.2-5.2); ALT/SGPT 31 U/L (12-78); BILIRUBIN,DIRECT < 0.1 MG/DL (0.0-0.2); BILIRUBIN,TOTAL 0.3 MG/DL (0.2-1.0); BLOOD UREA NITROGEN 43 MG/DL (7-18); C REACTIVE PROTEIN QUANTITATIV 0.78 MG/DL (0.00-0.30); CALCIUM LEVEL 9.4 MG/DL (8.8-10.2); CARBON DIOXIDE LEVEL 23 MEQ/L (21-32); CHLORIDE LEVEL 109 MEQ/L (98-107); CREATININE FOR GFR 2.14 MG/DL (0.55-1.30); GLOMERULAR FILTRATION RATE 24.7 (>45); GLUCOSE, FASTING 206 MG/DL (70-100); POTASSIUM SERUM 4.4 MEQ/L (3.5-5.1); SODIUM LEVEL 138 MEQ/L (136-145); TOTAL PROTEIN 7.6 GM/DL (6.4-8.2)
== END ==
LOC: M PLALAB 13:08
PROVIDERS: ATTEND Internal Medicine
DX: M06.9 Rheumatoid arthritis, unspecified (principal)

== ENCOUNTER → 2021-12-02 | Outpatient (CLI) | payer MEDICARE, OTHER ==
[~2021-12-02] MED LIST changes: +CLOP75TA99 PO; -PLAV1TAB2 PO
[2021-12-02 17:55] LABS: HEMOGLOBIN A1c 7.8 %
[2021-12-02 18:08] LABS: ALBUMIN 3.6 GM/DL (3.2-5.2); BILIRUBIN,TOTAL 0.2 MG/DL (0.2-1.0); CALCIUM LEVEL 9.2 MG/DL (8.8-10.2); CREATININE FOR GFR 2.45 MG/DL (0.55-1.30); GLOMERULAR FILTRATION RATE 21.1 (>45); POTASSIUM SERUM 5.1 MEQ/L (3.5-5.1); TOTAL PROTEIN 7.3 GM/DL (6.4-8.2)
== END ==
LOC: M PLALAB 15:49
PROVIDERS: ATTEND Family Medicine
DX: E11.42 Type 2 diabetes mellitus with diabetic polyneuropathy (principal)

== ENCOUNTER 2022-01-10 09:30 | Emergency (ER) | payer MEDICARE, OTHER ==
[~2022-01-10] VITALS: Ht 160 cm; Wt 66.3 kg
[2022-01-10 09:31] VITALS: BP 159/71
== END 2022-01-10 11:45 | disposition home or self-care (01) ==
LOC: M ED 09:30
DX: S09.90XA Unspecified injury of head, initial encounter (principal); M54.9 Dorsalgia, unspecified; W22.8XXA Striking against or struck by other objects, initial encounter; Y92.099 Unspecified place in other non-institutional residence as the place of occurrence of the external cause; E11.9 Type 2 diabetes mellitus without complications; K21.9 Gastro-esophageal reflux disease without esophagitis; E55.9 Vitamin D deficiency, unspecified; G47.33 Obstructive sleep apnea (adult) (pediatric); Z79.82 Long term (current) use of aspirin; Z79.84 Long term (current) use of oral hypoglycemic drugs; Z79.899 Other long term (current) drug therapy; Z88.0 Allergy status to penicillin; Z88.2 Allergy status to sulfonamides; Z88.5 Allergy status to narcotic agent; Z88.8 Allergy status to other drugs, medicaments and biological substances; Z88.6 Allergy status to analgesic agent

== ENCOUNTER → 2022-01-14 | Outpatient (CLI) | payer MEDICARE ==
[2022-01-14 13:45] LABS: BASO # 0.1 10^3/uL (0.0-0.2); BASO % 0.5 % (0.0-1.0); EOS # 0.3 10^3/uL (0.0-0.5); EOS % 2.6 % (0.0-3.0); HEMATOCRIT 34.6 % (36.0-47.0); HEMOGLOBIN 10.1 g/dl (12.0-15.5); LYMPH # 1.2 10^3/uL (1.5-5.0); LYMPH % 11.1 % (24.0-44.0); MEAN CORPUSCULAR HEMOGLOBIN 24.2 pg (27.0-33.0); MEAN CORPUSCULAR HGB CONC 29.2 g/dl (32.0-36.5); MONO # 0.9 10^3/uL (0.0-0.8); MONO % 7.6 % (2.0-8.0); NEUTROPHILS # 8.7 10^3/uL (1.5-8.5); NEUTROPHILS % 77.8 % (36.0-66.0); PLATELET COUNT, AUTOMATED 272 10^3/uL (150-450); RED BLOOD COUNT 4.17 10^6/uL (4.00-5.40); WHITE BLOOD COUNT 11.2 10^3/uL (4.0-10.0)
[2022-01-14 14:22] LABS: ERYTHROCYTE SEDIMENTATION RATE 60 mm/hr (0-30)
[2022-01-14 14:24] LABS: ALBUMIN 3.4 G/DL (3.2-5.2); BILIRUBIN,TOTAL 0.2 MG/DL (0.3-1.2); C REACTIVE PROTEIN QUANTITATIV 3.3 MG/DL (<1.0); CALCIUM LEVEL 9.3 MG/DL (8.3-10.6); CREATININE FOR GFR 2.32 MG/DL (0.55-1.30); GLOMERULAR FILTRATION RATE 22.4 (>45); POTASSIUM SERUM 4.2 MMOL/L (3.5-5.1); TOTAL PROTEIN 6.6 G/DL (5.7-8.2)
== END ==
LOC: M PLALAB 11:15
PROVIDERS: ATTEND Physician Assistant
DX: K57.92 Diverticulitis of intestine, part unspecified, without perforation or abscess without bleeding (principal); Z86.19 Personal history of other infectious and parasitic diseases; R19.5 Other fecal abnormalities; S09.90XA Unspecified injury of head, initial encounter; X58.XXXA Exposure to other specified factors, initial encounter; Y92.9 Unspecified place or not applicable; Y93.9 Activity, unspecified; Y99.9 Unspecified external cause status

== ENCOUNTER → 2022-02-01 | Outpatient (CLI) | payer MEDICARE ==
[2022-02-01 14:26] LABS: BASO % 0.3 % (0.0-1.0); EOS % 0.3 % (0.0-3.0); HEMATOCRIT 34.8 % (36.0-47.0); LYMPH # 0.9 10^3/uL (1.5-5.0); LYMPH % 12.1 % (24.0-44.0); MEAN CORPUSCULAR HEMOGLOBIN 23.9 pg (27.0-33.0); MEAN CORPUSCULAR HGB CONC 28.7 g/dl (32.0-36.5); MEAN CORPUSCULAR VOLUME 83.1 fl (80.0-96.0); MONO # 0.7 10^3/uL (0.0-0.8); MONO % 10.1 % (2.0-8.0); NEUTROPHILS # 5.6 10^3/uL (1.5-8.5); NEUTROPHILS % 76.8 % (36.0-66.0); PLATELET COUNT, AUTOMATED 201 10^3/uL (150-450); RED BLOOD COUNT 4.19 10^6/uL (4.00-5.40); WHITE BLOOD COUNT 7.3 10^3/uL (4.0-10.0)
[2022-02-01 14:51] LABS: C REACTIVE PROTEIN QUANTITATIV 1.6 MG/DL (<1.0)
[2022-02-01 14:52] LABS: ALBUMIN 3.3 G/DL (3.2-5.2); BILIRUBIN,TOTAL 0.2 MG/DL (0.3-1.2); CREATININE FOR GFR 2.15 MG/DL (0.55-1.30); GLOMERULAR FILTRATION RATE 24.5 (>45); POTASSIUM SERUM 4.8 MMOL/L (3.5-5.1); TOTAL PROTEIN 6.6 G/DL (5.7-8.2)
[2022-02-01 14:54] LABS: FERRITIN 317.3 NG/ML (7.3-270.7)
[2022-02-01 14:55] LABS: ERYTHROCYTE SEDIMENTATION RATE 46 mm/hr (0-30)
== END ==
LOC: M PLALAB 10:36
PROVIDERS: ATTEND Physician Assistant
DX: R19.7 Diarrhea, unspecified (principal); N18.32 Chronic kidney disease, stage 3b; R53.83 Other fatigue; R23.1 Pallor; D63.1 Anemia in chronic kidney disease; D50.9 Iron deficiency anemia, unspecified

== ENCOUNTER → 2022-02-04 | Outpatient (CLI) | payer MEDICARE ==
[2022-02-04 18:26] LABS: APPEARANCE, URINE MANUAL CLOUDY (CLEAR); COLOR, URINE MANUAL YELLOW (YELLOW)
[2022-02-04 18:27] LABS: BILIRUBIN, URINE MANUAL NEGATIVE (NEGATIVE); BLOOD URINE MANUAL TRACE (NEGATIVE); GLUCOSE, URINE (UA) MANUAL NEGATIVE (NEGATIVE); KETONE, URINE MANUAL NEGATIVE (NEGATIVE); LEUKOCYTE ESTERASE, URINE MAN NEGATIVE (NEGATIVE); NITRITE, URINE MANUAL NEGATIVE (NEGATIVE); PROTEIN, URINE MANUAL 3+ mg/dL (NEGATIVE); UROBILINOGEN, URINE MANUAL NORMAL (NORMAL)
[2022-02-04 18:56] LABS: GRANULAR CAST, URINE 0-1 /lpf
[2022-02-04 18:57] LABS: AMORPHOUS SEDIMENT, URINE SMALL AMOUNT (NEGATIVE); BACTERIA, URINE SMALL AMOUNT; MUCUS, URINE MOD AMOUNT (NEGATIVE); RBC, URINE 0-1 /hpf (0-3); SQUAMOUS EPITHELIAL CELL URINE MOD AMOUNT /hpf (SMALL AMT)
== END ==
LOC: M PLALAB 14:59
PROVIDERS: ATTEND Physician Assistant
DX: M54.50 Low back pain, unspecified (principal); J44.9 Chronic obstructive pulmonary disease, unspecified

== ENCOUNTER → 2022-05-13 | Outpatient (CLI) | payer MEDICARE ==
[2022-05-13 13:34] LABS: HEMATOCRIT 32.9 % (36.0-47.0); HEMOGLOBIN 9.7 g/dl (12.0-15.5); MEAN CORPUSCULAR HEMOGLOBIN 24.3 pg (27.0-33.0); MEAN CORPUSCULAR HGB CONC 29.5 g/dl (32.0-36.5); MEAN CORPUSCULAR VOLUME 82.3 fl (80.0-96.0); PLATELET COUNT, AUTOMATED 245 10^3/uL (150-450); WHITE BLOOD COUNT 11.2 10^3/uL (4.0-10.0)
[2022-05-13 13:44] LABS: ERYTHROCYTE SEDIMENTATION RATE 66 mm/hr (0-30)
[2022-05-13 15:12] LABS: C REACTIVE PROTEIN QUANTITATIV 0.6 MG/DL (<1.0)
[2022-05-13 15:29] LABS: ALBUMIN 3.5 G/DL (3.2-5.2); BILIRUBIN,TOTAL 0.3 MG/DL (0.3-1.2); CALCIUM LEVEL 8.8 MG/DL (8.3-10.6); CHOLESTEROL RISK RATIO 1.97 (<5); CREATININE FOR GFR 2.14 MG/DL (0.55-1.30); GLOMERULAR FILTRATION RATE 24.6 (>45); HDL CHOLESTEROL 56.2 MG/DL (>40); NON-HDL-C 54.8 MG/DL; POTASSIUM SERUM 4.3 MMOL/L (3.5-5.1); TOTAL 25(OH) VITAMIN D 35.9 NG/ML (20.0-100.0)
[2022-05-13 17:00] LABS: HEMOGLOBIN A1c 7.3 % (4.0-6.0)
[2022-05-13 18:28] LABS: LDL CHOLESTEROL 33.4 MG/DL (<100); TOTAL PROTEIN 6.8 G/DL (5.7-8.2)
== END ==
LOC: M PLALAB 11:23
PROVIDERS: ATTEND Family Medicine
DX: E11.42 Type 2 diabetes mellitus with diabetic polyneuropathy (principal); M06.9 Rheumatoid arthritis, unspecified; E55.9 Vitamin D deficiency, unspecified; Z79.52 Long term (current) use of systemic steroids; D50.9 Iron deficiency anemia, unspecified; K57.92 Diverticulitis of intestine, part unspecified, without perforation or abscess without bleeding; E78.2 Mixed hyperlipidemia

== ENCOUNTER → 2022-06-15 | Outpatient (CLI) | payer MEDICARE, OTHER | LOC: M RAD 16:19 | PROVIDERS: ATTEND Internal Medicine Pulmonary Disease | DX: Z87.891 Personal history of nicotine dependence (principal); R91.8 Other nonspecific abnormal finding of lung field ==

== ENCOUNTER → 2022-07-12 | Outpatient (CLI) | payer MEDICARE, OTHER ==
[2022-07-12 15:53] LABS: BASO # 0.1 10^3/uL (0.0-0.2); BASO % 0.9 % (0.0-1.0); EOS # 0.1 10^3/uL (0.0-0.5); EOS % 0.5 % (0.0-3.0); HEMATOCRIT 35.5 % (36.0-47.0); HEMOGLOBIN 10.6 g/dl (12.0-15.5); LYMPH # 2.4 10^3/uL (1.5-5.0); LYMPH % 20.3 % (24.0-44.0); MEAN CORPUSCULAR HEMOGLOBIN 24.4 pg (27.0-33.0); MEAN CORPUSCULAR HGB CONC 29.9 g/dl (32.0-36.5); MEAN CORPUSCULAR VOLUME 81.6 fl (80.0-96.0); MONO # 0.9 10^3/uL (0.0-0.8); MONO % 7.2 % (2.0-8.0); NEUTROPHILS # 8.3 10^3/uL (1.5-8.5); NEUTROPHILS % 70.8 % (36.0-66.0); PLATELET COUNT, AUTOMATED 262 10^3/uL (150-450); RED BLOOD COUNT 4.35 10^6/uL (4.00-5.40); WHITE BLOOD COUNT 11.8 10^3/uL (4.0-10.0)
[2022-07-12 16:21] LABS: RHEUMATOID FACTOR QUANT 24.7 IU/ML (<14)
[2022-07-12 16:22] LABS: HEPATITIS B SURFACE ANTIBODY NEGATIVE (POSITIVE)
[2022-07-12 16:35] LABS: HEPATITIS B SURFACE ANTIGEN NEGATIVE (NEGATIVE)
[2022-07-12 16:50] LABS: ERYTHROCYTE SEDIMENTATION RATE 43 mm/hr (0-30)
[2022-07-12 16:54] LABS: HEPATITIS C VIRUS ABY INDEX < 0.0 INDEX (<0.8)
[2022-07-12 17:05] LABS: ALBUMIN 3.2 G/DL (3.2-5.2); ALKALINE PHOSPHATASE 213 U/L (46-116); ALT/SGPT 35 U/L (7.0-40); AST/SGOT 16 U/L (<34); BILIRUBIN,TOTAL 0.3 MG/DL (0.3-1.2); BLOOD UREA NITROGEN 46 MG/DL (9-23); CARBON DIOXIDE LEVEL 22 MMOL/L (20-31); CHLORIDE LEVEL 108 MMOL/L (98-107); CREATININE FOR GFR 2.28 MG/DL (0.55-1.30); GLOMERULAR FILTRATION RATE 22.9 (>45); GLUCOSE, FASTING 236 MG/DL (74-106); POTASSIUM SERUM 3.8 MMOL/L (3.5-5.1); SODIUM LEVEL 139 MMOL/L (136-145); TOTAL PROTEIN 6.4 G/DL (5.7-8.2)
[2022-07-14 20:08] LABS: CYCLIC CITRULLINATED PEPTIDE > 250 units (0-19)
[2022-07-14 23:08] LABS: ANTINUCLEAR ANTIBODIES DIRECT Negative (Negative)
== END ==
LOC: M PLALAB 12:25
PROVIDERS: ATTEND Internal Medicine Rheumatology
DX: M05.79 Rheumatoid arthritis with rheumatoid factor of multiple sites without organ or systems involvement (principal)

== ENCOUNTER → 2022-08-12 | Outpatient (CLI) | payer MEDICARE, OTHER ==
[~2022-08-12] MED LIST changes: -HYDR200T3 PO; +HYDR200T46 PO; -K-TA10TA2 PO; +POTA-165 PO
== END ==
LOC: M PLALAB 11:39
PROVIDERS: ATTEND Internal Medicine Rheumatology
DX: M10.00 Idiopathic gout, unspecified site (principal)

== ENCOUNTER → 2022-08-12 | Outpatient (CLI) | payer MEDICARE, OTHER ==
[2022-08-12 13:35] LABS: HEMATOCRIT 33.4 % (36.0-47.0); HEMOGLOBIN 9.9 g/dl (12.0-15.5); MEAN CORPUSCULAR HEMOGLOBIN 24.4 pg (27.0-33.0); MEAN CORPUSCULAR HGB CONC 29.6 g/dl (32.0-36.5); MEAN CORPUSCULAR VOLUME 82.5 fl (80.0-96.0); PLATELET COUNT, AUTOMATED 266 10^3/uL (150-450); RED BLOOD COUNT 4.05 10^6/uL (4.00-5.40); WHITE BLOOD COUNT 10.8 10^3/uL (4.0-10.0)
[2022-08-12 13:53] LABS: HEMOGLOBIN A1c 7.7 % (4.0-6.0)
== END ==
LOC: M PLALAB 11:36
PROVIDERS: ATTEND Family Medicine
DX: E11.21 Type 2 diabetes mellitus with diabetic nephropathy (principal); M10.00 Idiopathic gout, unspecified site; D63.1 Anemia in chronic kidney disease; N18.32 Chronic kidney disease, stage 3b; D50.9 Iron deficiency anemia, unspecified

== ENCOUNTER → 2022-10-14 | Outpatient (CLI) | payer MEDICARE, OTHER | LOC: M WUC 11:03 | PROVIDERS: ATTEND Nurse Practitioner Family | DX: M79.642 Pain in left hand (principal); S62.024A Nondisplaced fracture of middle third of navicular [scaphoid] bone of right wrist, initial encounter for closed fracture; M79.89 Other specified soft tissue disorders; M77.8 Other enthesopathies, not elsewhere classified; X58.XXXA Exposure to other specified factors, initial encounter; Y92.9 Unspecified place or not applicable; Y93.9 Activity, unspecified; Y99.9 Unspecified external cause status ==

== ENCOUNTER → 2022-10-25 | Outpatient (CLI) | payer MEDICARE, OTHER ==
[2022-10-25 16:21] LABS: CALCIUM LEVEL 9.8 MG/DL (8.3-10.6); CREATININE FOR GFR 3.51 MG/DL (0.55-1.30); GLOMERULAR FILTRATION RATE 13.9 (>45); POTASSIUM SERUM 4.8 MMOL/L (3.5-5.1)
== END ==
LOC: M PLALAB 12:13
PROVIDERS: ATTEND Student in an Organized Health Care Education/Training Program
DX: I10 Essential (primary) hypertension (principal)

== ENCOUNTER → 2022-11-29 | Outpatient (REF) | payer MEDICARE, OTHER ==
[2022-11-29 17:55] LABS: PERCENT SATURATION 19.1 % (13.2-45.0)
[2022-11-29 17:58] LABS: FERRITIN 278.5 NG/ML (7.3-270.7)
== END ==
LOC: M LAB REF 17:20
PROVIDERS: ATTEND Internal Medicine Nephrology
DX: D50.9 Iron deficiency anemia, unspecified (principal)

== ENCOUNTER → 2023-05-09 | Outpatient (CLI) | payer MEDICARE, MEDICAID ==
[~2023-05-09] MED LIST changes: +ACET1TAB55 PO; -LEFL1TAB4 PO; +LEFL20TA15 PO; +METR-265 PO; +OMEG10002 PO; +SOLI5TAB; +VITA100T59 PO
== END ==
LOC: M PLALAB 11:58
PROVIDERS: ATTEND Student in an Organized Health Care Education/Training Program
DX: M16.12 Unilateral primary osteoarthritis, left hip (principal)

== ENCOUNTER → 2023-06-20 | Outpatient (CLI) | payer MEDICARE, MEDICAID | LOC: M PLAIMG 09:21 | PROVIDERS: ATTEND Student in an Organized Health Care Education/Training Program | DX: R06.2 Wheezing (principal); R05.1 Acute cough ==

== ENCOUNTER → 2023-07-12 | Outpatient (CLI) | payer MEDICARE, MEDICAID | LOC: M RAD 16:52 | PROVIDERS: ATTEND Physician Assistant | DX: H90.6 Mixed conductive and sensorineural hearing loss, bilateral (principal); H70.13 Chronic mastoiditis, bilateral ==

== ENCOUNTER → 2023-07-17 | Outpatient (CLI) | payer MEDICARE, MEDICAID | LOC: M WHC 09:43 | PROVIDERS: ATTEND Student in an Organized Health Care Education/Training Program | DX: Z79.52 Long term (current) use of systemic steroids (principal) ==

== ENCOUNTER → 2023-11-13 | Outpatient (CLI) | payer MEDICARE, MEDICAID ==
[2023-11-13 18:23] LABS: FOLATE > 24.0 NG/ML (>5.4); VITAMIN B12 LEVEL 503 PG/ML (211-911)
== END ==
LOC: M PLALAB 14:45
PROVIDERS: ATTEND Student in an Organized Health Care Education/Training Program
DX: D50.9 Iron deficiency anemia, unspecified (principal)

== ENCOUNTER → 2024-03-15 | Outpatient (CLI) | payer MEDICARE, MEDICAID ==
[~2024-03-15] MED LIST changes: +NYST1POW3; -NYST1POW9
[2024-03-15 16:41] LABS: CALCIUM LEVEL 9.5 MG/DL (8.3-10.6); CHOLESTEROL RISK RATIO 1.88 (<5); CREATININE FOR GFR 3.76 MG/DL (0.55-1.30); GLOMERULAR FILTRATION RATE 12.8 (>45); HDL CHOLESTEROL 72.7 MG/DL (>40); LDL CHOLESTEROL 47.7 MG/DL (<100); NON-HDL-C 64.3 MG/DL; POTASSIUM SERUM 4.6 MMOL/L (3.5-5.1); PTH INTACT 121.4 PG/ML (18.5-88.0)
[2024-03-15 16:43] LABS: TOTAL 25(OH) VITAMIN D 42.1 NG/ML (20.0-100.0)
[2024-03-15 16:44] LABS: THYROID STIMULATING HORMONE 4.276 uIU/ML (0.55-4.78)
== END ==
LOC: M PLALAB 12:25
PROVIDERS: ATTEND Student in an Organized Health Care Education/Training Program
DX: Z00.00 Encounter for general adult medical examination without abnormal findings (principal); E11.42 Type 2 diabetes mellitus with diabetic polyneuropathy; N18.32 Chronic kidney disease, stage 3b

== ENCOUNTER → 2024-04-19 | Outpatient (CLI) | payer MEDICARE, MEDICAID | LOC: M RAD 13:12 | PROVIDERS: ATTEND Internal Medicine Pulmonary Disease | DX: Z87.891 Personal history of nicotine dependence (principal) ==

== ENCOUNTER → 2024-06-26 | Outpatient (CLI) | payer MEDICARE, MEDICAID ==
[~2024-06-26] MED LIST changes: -AMBI5TAB PO; +BUPR-670 PO; -BUPR1TAB52 PO; +ZOLP-532 PO
== END ==
LOC: M SOG 07:55
PROVIDERS: ATTEND Physician Assistant
DX: Z53.9 Procedure and treatment not carried out, unspecified reason (principal); M25.562 Pain in left knee; M25.561 Pain in right knee

== ENCOUNTER → 2024-07-01 | Outpatient (CLI) | payer MEDICARE, MEDICAID | LOC: M SOG 14:12 | PROVIDERS: ATTEND Physician Assistant | DX: M25.561 Pain in right knee (principal); M25.562 Pain in left knee; M17.0 Bilateral primary osteoarthritis of knee ==

== ENCOUNTER → 2024-10-06 | Outpatient (CLI) | payer MEDICARE, MEDICAID | LOC: M RAD 14:02 | PROVIDERS: ATTEND Student in an Organized Health Care Education/Training Program | DX: S00.33XA Contusion of nose, initial encounter (principal); Y93.9 Activity, unspecified; Y92.9 Unspecified place or not applicable ==

== ENCOUNTER → 2024-10-08 | Outpatient (CLI) | payer MEDICARE, MEDICAID | LOC: M PLAIMG 15:16 | PROVIDERS: ATTEND Student in an Organized Health Care Education/Training Program | DX: M25.562 Pain in left knee (principal); Z91.81 History of falling ==

== ENCOUNTER 2025-01-01 09:54 | Emergency (ER) | payer MEDICARE, MEDICAID ==
[~2025-01-01] VITALS: Ht 160 cm; Wt 63.3 kg
[~2025-01-01 09:54] MED LIST changes: -DONE10TA90; -DULA3PEN; -GLIM2TAB29; -HUMI40IN2; -HYDR25TA87; -LIDO1ADH93 TOP; -LOSA50TA28; -PANT40TA29
[2025-01-01 09:56] VITALS: BP 180/74; TEMP 96.7; O2SAT 99
[2025-01-01] MEDS ORDERED: DULA3PEN (10:22)
[2025-01-01] MEDS ORDERED: PANT40TA29 (10:22)
[2025-01-01] MEDS ORDERED: DONE10TA90 (10:22)
[2025-01-01] MEDS ORDERED: LOSA50TA28 (10:22)
[2025-01-01] MEDS ORDERED: GLIM2TAB29 (10:22)
[2025-01-01] MEDS ORDERED: HYDR25TA87 (10:22)
[2025-01-01] MEDS ORDERED: HUMI40IN2 (10:22)
[2025-01-01] MEDS ORDERED: LIDO1ADH93 TOP (10:39)
== END 2025-01-01 10:43 | disposition home or self-care (01) ==
LOC: M ED 09:54
DX: M54.31 Sciatica, right side (principal); M54.50 Low back pain, unspecified; M54.6 Pain in thoracic spine; M47.817 Spondylosis without myelopathy or radiculopathy, lumbosacral region; M47.814 Spondylosis without myelopathy or radiculopathy, thoracic region; E11.9 Type 2 diabetes mellitus without complications; Z87.19 Personal history of other diseases of the digestive system; Z79.82 Long term (current) use of aspirin; Z79.4 Long term (current) use of insulin; Z79.899 Other long term (current) drug therapy; Z88.0 Allergy status to penicillin; Z88.1 Allergy status to other antibiotic agents; Z88.2 Allergy status to sulfonamides; Z88.5 Allergy status to narcotic agent; Z88.6 Allergy status to analgesic agent; Z88.8 Allergy status to other drugs, medicaments and biological substances

== ENCOUNTER → 2025-01-01 | Outpatient (CLI) | payer MEDICARE, MEDICAID ==
[~2025-01-01] MED LIST changes: +DONE10TA90; +DULA3PEN; +GLIM2TAB29; +HUMI40IN2; +HYDR25TA87; +LIDO1ADH93 TOP; +LOSA50TA28; +PANT40TA29
== END ==
LOC: M RAD 09:12
PROVIDERS: ATTEND Internal Medicine Nephrology
DX: M54.50 Low back pain, unspecified (principal); M54.6 Pain in thoracic spine; M47.817 Spondylosis without myelopathy or radiculopathy, lumbosacral region; M47.814 Spondylosis without myelopathy or radiculopathy, thoracic region

== ENCOUNTER 2025-02-13 12:50 | Emergency (ER) | payer MEDICARE, MEDICAID ==
[~2025-02-13] VITALS: Ht 160 cm; Wt 62.5 kg
[~2025-02-13 12:50] MED LIST changes: +DONE10TA90; +DULA3PEN; +GLIM2TAB29; +HUMI40IN2; +HYDR25TA87; +LIDO1ADH93 TOP; +LOSA50TA28; +PANT40TA29
[2025-02-13 15:55] VITALS: BP 132/60; TEMP 98.4; O2SAT 99
== END 2025-02-13 16:07 | disposition home or self-care (01) ==
LOC: M ED 15:50
DX: K59.00 Constipation, unspecified (principal); E11.9 Type 2 diabetes mellitus without complications; I10 Essential (primary) hypertension; J44.9 Chronic obstructive pulmonary disease, unspecified; E78.5 Hyperlipidemia, unspecified; Z87.891 Personal history of nicotine dependence; Z79.899 Other long term (current) drug therapy; Z79.84 Long term (current) use of oral hypoglycemic drugs; Z88.0 Allergy status to penicillin; Z88.5 Allergy status to narcotic agent; Z88.2 Allergy status to sulfonamides; Z88.8 Allergy status to other drugs, medicaments and biological substances; Z88.6 Allergy status to analgesic agent